=== PATIENT | male | born 1945 | race Caucasian/White ===

== ENCOUNTER 2016-12-15 13:32 | Inpatient (IN) | payer MEDICARE, OTHER ==
[~2016-12-15] VITALS: Ht 185.4 cm; Wt 92.7 kg
[~2016-12-15 13:32] MED LIST: CARB1TAB2 PO; DILT120T4 PO; INSU100I9 SQ; INSU100V8 SQ; METF500T4 PO; NIAC1000 PO; RIVA10TA PO; VALS1TAB8 PO
[2016-12-15] MEDS ORDERED: NITROGLYCERIN SUBLINGUAL 0.4 MG BOTTLE OF 25. SL PRN (14:15)
[2016-12-15 14:29] LABS: BASO % 0 % (0-3); EOS % 0 % (0-3); HEMATOCRIT 43.5 % (39.0-53.0); HEMOGLOBIN 14.5 g/dL (13.0-17.5); LYMPH # 1.3 x10^3/uL (1.0-4.8); LYMPH % 11 % (24-48); MEAN CORPUSCULAR HEMOGLOBIN 29 pg (25-35); MEAN CORPUSCULAR HGB CONC 33 g/dL (31-37); MEAN CORPUSCULAR VOLUME 86 fL (79-100); MONO % 8 % (0-9); NEUT # 9.8 x10^3uL (1.8-7.7); NEUT % 81 % (31-73); PLATELET COUNT 164 x10^3/uL (140-400); RED BLOOD COUNT 5.06 x10^6/uL (4.30-5.70); RED CELL DISTRIBUTION WIDTH 16.8 % (11.5-14.5); WHITE BLOOD COUNT 12.1 x10^3/uL (4.0-11.0)
[2016-12-15] MEDS ORDERED: ASPIRIN 81 MG TAB.CHEW PO ONE (14:30)
[2016-12-15 14:43] LABS: ALBUMIN 3.3 g/dL (3.4-5.0); GFR 73.9; TOTAL BILIRUBIN 0.6 mg/dL (0.2-1.0); TOTAL PROTEIN 6.7 g/dL (6.4-8.2)
--- NOTE | 2016-12-15 14:56 | RAD ---
PORTABLE CHEST 1V Clinical Indication: Chest pain Comparison: Chest radiograph dated 07/13/2014 Findings: Low lung volume. Bibasilar atelectasis. No focal consolidations. Stable pulmonary vasculature. No pleural effusion or pneumothorax. Stable cardiomegaly. Stable tortuous thoracic aorta. No acute osseous abnormality. IMPRESSION: 1. No focal consolidation. 2. Stable cardiomegaly.
--- NOTE | 2016-12-15 15:05 | PHYS DOC ---
General Chief Complaint: CHEST PAIN Stated Complaint: CHEST PAIN Time Seen by MD: 14:10 Source: patient, EMS Exam Limitations: no limitations Problems: History of Present Illness Initial Comments Patient is a 71-year-old male who arrives to the emergency department via EMS with a complaint of chest pain. Patient has history of rate controlled atrial fibrillation is on Coumadin anticoagulation PCP is at [facility] patient does not follow with cardiology, he follows with Dr. Hein for Parkinson's. Patient states that he first noticed his chest discomfort at 10 PM last night. He states that his chest pain is only present when he takes deep breaths or makes certain movements. When asked he points to the left lower anterior sternocostal border and pushes on the area himself reproducing the discomfort. He describes it as sharp and stabbing present only with deep breaths or certain movements/palpation, symptoms lasted only as long as the exacerbating movements. He denies any anterior chest tightness without movement, no dyspnea, no nausea vomiting, no diaphoresis arm or neck discomfort. Patient states that his chest pain with deep breaths and certain movements has not changed, it has not worsened since it was first noted at 10 PM last night. Patient lives alone and states otherwise he is feeling well he denies any recent illness fever chills sweats or body aches. No other focal pain complaints. On arrival patient vital signs: 98.2, 103, 16, 117/58, 95% room air asymptomatic on arrival without pre-arrival treatment. Timing/Duration: intermittent (first noticed 10 PM last night) Severity: moderate Modifying Factors: worse with movement, improves with rest Associated Symptoms: chest pain Allergies: Coded Allergies: No Known Drug Allergies (Unverified , 07/13/14) Past Medical History Medical History: other (atrial fibrillation, diabetes, Parkinson's) Surgical History: noncontributory Social History Smoker: non-smoker Alcohol: none Drugs: none Review of Systems Constitutional: denies chills, denies diaphoresis, denies fever, denies malaise Respiratory: denies cough, denies orthopnea, denies shortness of breath, denies wheezing Cardiovascular: chest pain, denies edema, denies palpitations, denies syncope Gastrointestinal: denies abdominal pain, denies diarrhea, denies nausea, denies vomiting Musculoskeletal: denies back pain, denies joint swelling, denies muscle pain, denies neck pain Psychiatric/Neurological: see HPI, denies headache Hematologic/Lymphatic: denies blood clots, denies easy bleeding, denies easy bruising Physical Exam General Appearance: no apparent distress (mildly disheveled) Eyes: bilateral eye PERRL, bilateral eye EOMI Ear, Nose, Throat: hearing grossly normal, normal ENT inspection (mildly dry membranes), normal pharynx Neck: non-tender, supple Respiratory: normal breath sounds, no respiratory distress, other (chest pain/ chief complaint reproducible with palpation of the left lower sternal costal cartilage, no palpable bony deformity, swelling or ecchymosis or other signs of trauma) Cardiovascular: normal peripheral pulses, regular rate, rhythm (one plus pitting lower extremity edema involving bilateral lower legs no calf tenderness) Gastrointestinal: normal bowel sounds, non tender, soft Back: no CVA tenderness, no vertebral tenderness Extremities: normal range of motion, non-tender (bruising consistent with chronic anticoagulation noted bilateral upper extremities, 1+ pitting lower extremity edema noted), no calf tenderness, pelvis stable 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 Interpreted by Dr. Aleman. PATIENT: JUAN MARTINEZ ACCOUNT: [id number] : 1945 LOCATION: ER AGE: 71 SEX: M EXAM STATUS: PRE ER ORD. PHYSICIAN: TRAMAINE ALEMAN DO REASON: cp PROCEDURE: PORTABLE CHEST 1V PORTABLE CHEST 1V Clinical Indication: Chest pain Comparison: Chest radiograph dated 07/13/2014 Findings: Low lung volume. Bibasilar atelectasis. No focal consolidations. Stable pulmonary vasculature. No pleural effusion or pneumothorax. Stable cardiomegaly. Stable tortuous thoracic aorta. No acute osseous abnormality. IMPRESSION: 1. No focal consolidation. 2. Stable cardiomegaly. DICTATED AND SIGNED BY: ALEX SORIANO MD DATE: 12/15/16 1451 CC: JOJO GUNTER; TRAMAINE ALEMAN DO ~ Pertinent labs: White blood cells 12.1, INR 3.1, potassium 3.0 (20 mEq of oral potassium chloride given), glucose 251, lactic acid 1.8, BNP 292, d-dimer less than 0.19 otherwise unremarkable. At 1511 I discussed these findings with the patient extensively, he stated that he was feeling fine and wanted to go home. I offered him inpatient admission for further evaluation at that time which he refused. Initial chest pain occurred greater than 12 hours prior to arrival and cardiac enzymes negative, initially no emergent indication for inpatient observation for further evaluation. Patient did not have a ride home and ED volume high at the time, patient's RN agreed to discuss with laborer cook house to try to arrange transfer home. Patient's vital signs remained stable and he remained asymptomatic during the wait for a ride back to his residence where he lives alone. When the patient was assisted to an upright position for transfer home he became weak and diaphoretic and blood pressure dropped acutely to systolic in the 80s. The symptoms resolved immediately upon resuming supine position and the patient denied any chest pain dyspnea headache or new focal weakness. A normal saline 1 L IV bolus initiated and further workup indicated at that time lactic acid came back 1.8 urinalysis also indicated however patient unable to give urine specimen at that time. Patient initially refusing catheterization, ED course was prolonged due to the need for further workup after initial discharge status and urinary hesitancy. Patient once again denied any prior urinary symptoms and bladder scan was somewhat inconclusive revealing 300-500 mL of urine. Ultimately his urine came back with greater than 1000 glucose, 15 ketones otherwise no evidence of infection. Patient will require further inpatient evaluation for his hypotension. No evidence of focal infection to suggest sepsis, diabetes and/or Parkinson's associated autonomic dysfunction as well as primary cardiogenic etiologies on the differential will need further workup as an inpatient as he is unstable on his feet and a fall risk living alone. 181: I discussed the patient's history as well as his prolonged ED course and evaluation thoroughly with method consultant hospitalist Dr. Howard. He requests the patient be placed on telemetry as inpatient status and continue initial IV hydration measures to support blood pressure. He requested serial cardiac enzymes and close glucose monitoring as well as echocardiogram and cardiology/ neurology consultations. I discussed these issues with the patient and he understands he is a fall risk and is in agreement with admission. Impressions: Orthostatic hypotension Chest pain appears musculoskeletal Hypovolemic hypokalemia not on diuretics DM2 poorly controlled Rate controlled atrial fibrillation with therapeutic INR History of Parkinson's disease Departure Time of Disposition: 15:11 Disposition: 01 HOME, SELF-CARE Diagnosis: costochondritis, hypokalemia, therapeutic INR, A. Condition: GOOD Patient Instructions: Costochondritis, [id number], Hypokalemia-Brief Additional Instructions: Activity as tolerated. Continue current medications. Aggressive hydration to prevent dehydration. [id number] Tylenol or ibuprofen as needed for discomfort. Prescription: Potassium chloride 10 mEq quantity 3 Follow-up with your doctor on Saturday for recheck. Return to ED with new or changing symptoms. TRAMAINE ALEMAN DO Dec 15, 2016 15:05
[2016-12-15] MEDS ORDERED: POTA10CA PO (15:14)
[2016-12-15] MEDS ORDERED: POTASSIUM CHLORIDE 20 MEQ/15 ML ORAL LIQUID. PO ONE (15:30)
[2016-12-15] MEDS ORDERED: ONDANSETRON ODT 4 MG TAB.RAPDIS ONE (15:38)
[2016-12-15] MEDS ORDERED: IV NORMAL SALINE 1,000ML 1,000 ML IV SCH (16:00)
--- NOTE | 2016-12-15 16:08 | EKG ---
[address] [address] Test Date: 2016-12-15 Test Time: 13:43:48 Pat Name: JUAN MARTINEZ Department: Room: Gender: M Market President: LAKESHA : 1945 Requested By: TRAMAINE ALEMAN Order Number: [id number] Reading MD: Jose Schneider Measurements Intervals [place] Rate: 101 P: [place]: QRS: 10 QRSD: 100 T: 26 QT: 336 QTc: 436 Interpretive Statements IRREGULAR RHYTHM, NO P-WAVE FOUND QRS(T) CONTOUR ABNORMALITY CONSISTENT WITH INFERIOR INFARCT PROBABLY OLD Electronically Signed On 12-16-2016 16:14:54 CDT by Jose Schneider
[2016-12-15] MEDS ORDERED: ONDANSETRON ODT 4 MG TAB.RAPDIS PO ONE (16:15)
[2016-12-15 17:54] LABS: BILIRUBIN,URINE NEG (NEG); CLARITY,URINE CLEAR; COLOR,URINE YELLOW; GLUCOSE,URINE >=1000 mg/dL (NEG)
[2016-12-15 17:55] LABS: BACTERIA,URINE 0 /HPF (0-FEW); NITRITE,URINE NEG (NEG); RBC,URINE 0 /HPF (0-2); SQUAMOUS EPITHELIAL CELL,UR OCC /LPF; UROBILINOGEN,URINE 1 mg/dL (0.2 mg/dL); WBC,URINE OCC /HPF (0-4)
[2016-12-15] MEDS ORDERED: ONDANSETRON PF 4 MG/2 ML VIAL. IV PRN (18:30)
[2016-12-15] MEDS ORDERED: ACETAMINOPHEN 325 MG TABLET PO PRN (18:30)
[2016-12-15 19:55] VITALS: BP 78/52
[2016-12-15] MEDS: IV NORMAL SALINE 1,000ML 1,000 ML IV SCH ×2 (20:00→22:30)
[2016-12-15 20:30] VITALS: BP 81/54
[2016-12-15 21:35] VITALS: BP 92/64
[2016-12-15 23:30] VITALS: BP 89/67
[2016-12-16] VITALS (7 sets, daily range): BP systolic 91–107; BP diastolic 57–72
[2016-12-16] MEDS: IV NORMAL SALINE 1,000ML 1,000 ML IV SCH ×4 (02:30→14:30)
[2016-12-16 06:21] LABS: BASO % 0 % (0-3); EOS % 0 % (0-3); HEMATOCRIT 38.1 % (39.0-53.0); HEMOGLOBIN 12.9 g/dL (13.0-17.5); LYMPH # 1.1 x10^3/uL (1.0-4.8); LYMPH % 12 % (24-48); MEAN CORPUSCULAR HEMOGLOBIN 29 pg (25-35); MEAN CORPUSCULAR HGB CONC 34 g/dL (31-37); MEAN CORPUSCULAR VOLUME 86 fL (79-100); MONO % 10 % (0-9); NEUT # 7.6 x10^3uL (1.8-7.7); NEUT % 78 % (31-73); PLATELET COUNT 124 x10^3/uL (140-400); RED BLOOD COUNT 4.44 x10^6/uL (4.30-5.70); RED CELL DISTRIBUTION WIDTH 16.7 % (11.5-14.5); WHITE BLOOD COUNT 9.8 x10^3/uL (4.0-11.0)
[2016-12-16 06:33] LABS: CALCIUM 8.1 mg/dL (8.5-10.1); CREATININE 0.7 mg/dL (0.7-1.3); GFR 111.5; POTASSIUM 3.2 mmol/L (3.5-5.1)
[2016-12-16] MEDS ORDERED: DILT120C71 PO (07:59)
[2016-12-16] MEDS ORDERED: CARB1TAB22 PO (07:59)
[2016-12-16] MEDS ORDERED: CANA300T PO (07:59)
[2016-12-16] MEDS ORDERED: OMEP40CA5 PO (07:59)
[2016-12-16] MEDS ORDERED: WARF5TAB7 PO (07:59)
[2016-12-16] MEDS ORDERED: ATOR20TA58 PO (07:59)
[2016-12-16] MEDS ORDERED: VALS80TA22 PO (07:59)
[2016-12-16] MEDS ORDERED: ROPI1TAB2 PO (07:59)
[2016-12-16] MEDS ORDERED: WARF1TAB7 PO (07:59)
[2016-12-16] MEDS ORDERED: POTASSIUM CHLORIDE 20 MEQ TABLET.ER. PO ONE (15:15)
--- NOTE | 2016-12-16 15:59 | HP ---
ADMIT DATE: 12/15/2016 HISTORY OF PRESENT ILLNESS: This is a 71-year-old male patient who came to the Emergency Room with a complaint of chest pain. He stated that he first noticed his chest discomfort around 10 p.m. tonight, before he stated that his chest pain is only present when he takes deep breath and make certain movement. When I asked, he pointed to the left lower anterior costal border and pushes on the area himself reproducing the discomfort, described it as a sharp, stabbing, present only with deep breath or certain movement. The symptoms lasted only as long as he was exacerbating movements. He denies any anterior chest tightness, dyspnea, nausea, vomiting, diaphoresis, no neck or arm discomfort. He stated that his chest pain with deep breath and certain movement has not changed, it has not worsened since it started at 10 o'clock last night. The patient lives alone and states; otherwise, he is feeling well and denies any other recent illnesses, fever, chills, sweats, body aches and no focal pain complaints. He was seen in the Emergency Room, was found also to be hypotensive with marked postural hypotension and was admitted for rehydration and to consult the Cardiology team as he continued to have AFib with rapid ventricular response. PAST MEDICAL HISTORY: Significant for Parkinson disease. He is known to have hypertension, hyperlipidemia, type 2 diabetes, pulmonary embolism. He is on Coumadin and his INR was within therapeutic range on admission. He has also fibrillation with rapid ventricular response. PAST SURGICAL HISTORY: Significant for back surgery, cholecystectomy, and eye surgery for squint. ALLERGIES: He has no known drug allergies. MEDICATIONS: He is currently on the following medications: He is on atorvastatin 20 mg at bedtime, Invokana 300 mg p.o. daily, carbidopa/levodopa 25/100 one tablet 3 times a day, diltiazem 120 mg extended release once a day. He is on Lantus insulin as well as Humalog insulin, niacin 1000 mg once a day, omeprazole 40 mg once a day, potassium chloride 10 mEq once a day, rivaroxaban for Xarelto 20 mg once a day, Requip 1 mg at bedtime, valsartan 80 mg once a day, and Coumadin 6 mg once a day. FAMILY HISTORY: He is adopted and does not know his biological parents. He has one brother, who lives in [place]; one sister in [place]. The other sister in [place] and the third sister in [place]. SOCIAL HISTORY: He is , has 1 son who does not keep in touch. He never smoked, does not drink alcohol or use any recreational drugs. 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 REVIEW OF SYSTEMS: The patient denied any blurring of vision, cataract, glaucoma or macular degeneration. Denied any earache, tinnitus or sensorineural deafness. Denied any nosebleeds, stuffy nose or postnasal drip. Denied any sore throat, sore tongue, toothache, hoarseness of voice or difficulty swallowing. Denied any nausea, vomiting, diarrhea or constipation. Denied any hematemesis, melena or hematochezia. Denied any dysuria, frequency, but did complain of nocturia, did complain of chest pain that brought him to the Emergency Room. Denied any shortness of breath, orthopnea, or paroxysmal nocturnal dyspnea. Denied any cough, phlegm or hemoptysis. Denied any chills, rigors or fever. PHYSICAL EXAMINATION: GENERAL: On arrival to the Emergency Room, he was somewhat pale, but no jaundice, cyanosis, or thyromegaly. No jugular venous distention. No lower limb edema. VITAL SIGNS: His heart rate was 103, blood pressure was 97/60, temperature was 98.2, respiratory rate was 16, and oxygen saturation was 95% on room air. HEAD, EYES, EARS, NOSE, AND THROAT: Showed normocephalic, atraumatic. NECK: Supple. HEART: Showed normal first and second heart sounds with no gallop, rub or murmur. CHEST: Clear to auscultation. No crepitation or rhonchi. ABDOMEN: Distended, soft, nontender. NEUROLOGIC: He was awake, alert, responding appropriately. All his cranial nerves are intact. EXTREMITIES: He moves extremities without difficulty, but according to the ER physician, he was markedly hypotensive when they planned to discharge him home. He has marked drop in his systolic pressure and was unsteady. LABORATORY DATA: While in the Emergency Room, he has had lab work done, which showed a white cell count of 12,100, hemoglobin 14.5, hematocrit 38.5, MCV 86 and platelet count 164,000. His prothrombin time was 31.3, INR of 3.1, aPTT was 39. D-dimer was 0.19. His chemistry showed a serum sodium 136, potassium 3, chloride 97, bicarbonate 26, anion gap of 13, BUN 22, creatinine 1, estimated GFR was 74 mL per minute, his glucose was 251, calcium was 9. Total bilirubin, AST, ALT, alkaline phosphatase were normal. His first set of cardiac enzymes showed troponin to be less than 0.017. BNP was 292. Total protein was 6.7, albumin 3.3. His urinalysis was essentially unremarkable. IMAGING: His chest x-ray showed the low lung volumes, bibasilar atelectasis, no focal consolidation, stable pulmonary vasculature, no pleural effusion or pneumothorax, stable cardiomegaly, stable tortuous thoracic aorta, no acute osseous abnormality. ASSESSMENT AND PLAN: The patient was admitted for rehydration, to do 2 more sets of cardiac enzyme, consult the Cardiology team, to replenish his potassium. CHANG FLOWER MD DR: DAIJA/re JOB#: [id number] / [id number]
--- NOTE | 2016-12-16 17:03 | CONS ---
DATE OF CONSULTATION: 12/15/2016 REASON FOR CONSULTATION: Chest pain. HISTORY OF PRESENT ILLNESS: The patient is a pleasant 71-year-old man who has mild cognitive impairment in the setting of possible Parkinson's disease, who came into the hospital for what appears to be some atypical chest discomfort around the epigastric region. He currently denies any chest pain, but review of the chart shows that he has had some chest pain dating back to 2014 at which time he was diagnosed with a pulmonary embolism. He has been maintained on anticoagulation and upon arrival to the ER, he was noted to have a therapeutic INR level. 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 Denies any syncope or palpitations. Upon arrival in the ER, he was also noted to have an elevated heart rate with atrial fibrillation with a rapid ventricular response by EKG. In this setting, his home medications have been restarted and he is resting comfortably in bed at this time. PAST MEDICAL HISTORY: 1. Pulmonary embolus. 2. Permanent atrial fibrillation. 3. Hypertension. 4. Dyslipidemia. SOCIAL HISTORY: The patient lives by himself as noted above. Denies any alcohol, tobacco, or illicit drug use. ALLERGIES: No known drug allergies. REVIEW OF SYSTEMS: Negative for 10 out of 14 systems reviewed, unless otherwise mentioned above in HPI. PHYSICAL EXAMINATION: VITAL SIGNS: Afebrile, 105, 23, 107/57, 95% on room air. GENERAL: He is quite pleasant and alert and oriented to self and place and time. HEAD AND NECK: Unremarkable. CARDIAC: Irregularly irregular without any obvious murmurs, rubs, or gallops. LUNGS: Fairly clear to auscultation bilaterally. ABDOMEN: Soft, nontender, without any hepatosplenomegaly. Positive bowel sounds. EXTREMITIES: No clubbing, cyanosis, or edema. 2+ radial and 1+ dorsalis pedis pulses. NEUROLOGIC: No focal deficits. He has appropriate mood and affect. Mini-Mental Status exam was not performed. DIAGNOSTIC STUDIES: Hemoglobin 12.9, platelets 124, creatinine 0.7, troponin negative x 2, INR 3.1. Urinalysis reveals glucosuria, but no obvious infectious etiology. Chest x-ray is unremarkable. EKG demonstrates atrial fibrillation with rapid ventricular response and nonspecific ST-T wave changes. IMPRESSION: 1. Noncardiac chest pain based on physical examination and diagnostic testing thus far. 2. Permanent atrial fibrillation. 3. Hypertension. RECOMMENDATIONS: At this present time, we will stop his losartan in light of the fact that he has had some low blood pressures. Confirm that he is actually taking his diltiazem at home. In an effort to achieve better rate control without affecting his blood pressure, we will initiate him on metoprolol 25 mg p.o. b.i.d. Continue with his Coumadin and we will follow up on an outpatient basis as his primary care physician is next to our office. Thank you for this consultation. EMELIA KHAN MD DR: KATELYNN/re JOB#: [id number] / [id number]
[2016-12-16] MEDS: metFORMIN 500 MG TABLET PO SCH (17:19)
[2016-12-16] MEDS: CARBIDOPA/LEVODOPA 25/100MG TABLET PO SCH (20:53)
[2016-12-16] MEDS: METOPROLOL TART IMMED RELEASE 25 MG TABLET PO SCH (20:54)
[2016-12-16] MEDS ORDERED: rOPINIRole 1 MG TABLET. PO SCH (21:00)
[2016-12-16] MEDS ORDERED: NIACIN ER 500 MG TABLET.ER PO SCH (21:00)
[2016-12-16] MEDS ORDERED: ATORVASTATIN CALCIUM 20 MG TABLET PO SCH (21:00)
[2016-12-17 00:47] VITALS: BP 92/69
[2016-12-17 01:32] VITALS: BP 96/65
[2016-12-17 04:00] VITALS: BP 96/70
[2016-12-17 06:45] LABS: HEMATOCRIT 38.7 % (39.0-53.0); HEMOGLOBIN 12.6 g/dL (13.0-17.5); RED BLOOD COUNT 4.35 x10^6/uL (4.30-5.70); RED CELL DISTRIBUTION WIDTH 17.5 % (11.5-14.5); WHITE BLOOD COUNT 8.3 x10^3/uL (4.0-11.0)
[2016-12-17 06:55] LABS: CALCIUM 8.5 mg/dL (8.5-10.1); CREATININE 0.6 mg/dL (0.7-1.3); GFR 133.2; POTASSIUM 3.8 mmol/L (3.5-5.1)
[2016-12-17] MEDS ORDERED: PANTOPRAZOLE 40 MG TABLET. PO SCH (07:30)
[2016-12-17] MEDS ORDERED: POTASSIUM CHLORIDE 20 MEQ TABLET.ER. PO SCH (08:00)
[2016-12-17] MEDS: METOPROLOL TART IMMED RELEASE 25 MG TABLET PO SCH (08:17)
[2016-12-17] MEDS: metFORMIN 500 MG TABLET PO SCH (08:19)
[2016-12-17] MEDS: CARBIDOPA/LEVODOPA 25/100MG TABLET PO SCH (08:19)
[2016-12-17] MEDS ORDERED: WARFARIN 1 MG TABLET. PO SCH (09:00)
[2016-12-17] MEDS ORDERED: LOSARTAN 25 MG TABLET. PO SCH (09:00)
[2016-12-17 09:38] VITALS: BP 97/70
[2016-12-17 11:05] VITALS: BP 105/69
--- NOTE | 2016-12-17 12:47 | PN ---
DATE: 12/16/2016 SUBJECTIVE: The patient is resting, slightly propped up in bed, in no apparent respiratory distress. He is awake, alert, continued to have some chest pain mostly when he takes a deep breath, but it is orthostatic and there is no postural . He received large amount of fluid. His lab work showed that he has hypokalemia that was replenished, unfortunately he does not know his actual doses of his medication. PHYSICAL EXAMINATION: GENERAL: When I examined him; however, he looked well and was clearly in no apparent respiratory distress, pale, but no jaundice, cyanosis, or thyromegaly. No jugular venous distention. No limb edema. VITAL SIGNS: His heart rate was 101, blood pressure was 105/60, temperature was 97.2, respiratory rate was 14, and oxygen saturation was 92%. The rest of clinical examination is unremarkable. LABORATORY WORK: This morning showed a serum sodium 138, potassium 3.2, chloride 104, bicarbonate 23, anion gap of 11, BUN 21, creatinine 0.7, estimated GFR was 111 mL per minute. His glucose 131, calcium was 8.1. Second set of cardiac enzyme was less than 0.07. His white cell count was 9800, hemoglobin 13, hematocrit 38, MCV 86 and platelet count 224,000. His prothrombin time was 31.3, INR 3.1, aPTT was 39. D-dimer was normal at 0.19. ASSESSMENT AND PLAN: In summary, this is a 71-year-old male patient who was admitted with basically orthostatic hypotension, chest pain appears musculoskeletal, hypovolemic, hypokalemia, type 2 diabetes that seems to be poorly controlled, his atrial fibrillation also seems to be less than optimally controlled; however, his INR is within therapeutic range. He has history of Parkinson disease, carpal tunnel syndrome, hyperlipidemia, hypertension, has also type 2 diabetes and pulmonary embolism. I will repeat all his lab works tomorrow. We did consult the accredited farm manager to see him to optimize his heart rate and perhaps arrange for a stress test. CHANG FLOWER MD DR: DAIJA/re JOB#: [id number] / [id number]
[2016-12-17] MEDS ORDERED: PRIM50TA PO (12:58)
[2016-12-17] MEDS ORDERED: WARF3TAB7 PO (12:58)
[2016-12-17] MEDS ORDERED: HYDR50TA6 PO (12:58)
[2016-12-17] MEDS ORDERED: CARBIDOPA/LEVODOPA 25/100MG TABLET PO SCH (13:00)
[2016-12-17] MEDS ORDERED: PRIMIDONE 50 MG TABLET PO SCH (13:30)
--- NOTE | 2016-12-17 13:58 | CARD ---
APPROVED REPORT EXAM: Two-dimensional and M-mode echocardiogram with Doppler and color Doppler. Other Information Quality : Fair Rhythm : Atrial FibrillationTechnically limited study due to body habitus. INDICATION Chest Pain Hypotension 2D DIMENSIONS RVDd3.3 (2.9-3.5cm)Left Atrium(2D)4.5 (1.6-4.0cm) IVSd1.4 (0.7-1.1cm)Aortic Root(2D)3.2 (2.0-3.7cm) LVDd5.1 (3.9-5.9cm)LVOT Diameter2.1 (1.8-2.4cm) PWd1.4 (0.7-1.1cm)LVDs4.5 (2.5-4.0cm) FS (%) 11.0 %SV29.0 ml LVEF(%)23.9 (>50%) Aortic Valve AoV Peak Jax.102.5cm/sAoV VTI16.8cm AO Peak GR.4.2mmHgLVOT Peak Jax.74.7cm/s LVOT VTI 13.44cmAO Mean GR.3mmHg MILLICENT (VMAX)2.22aw3TQX (VTI)2.88cm2 Mitral Valve MV E Qfwhmwxk83.4cm/sMV E Peak Gr.3mmHg MV DECEL [id number] A Velocity0.4cm/s MV E Mean Gr.1mmHgE/A Zaoad767.5 Tricuspid Valve TR P. Vtozeehy420ix/sRAP [id number] TR Peak Gr.09reXmJJEW41iqCn LEFT VENTRICLE The left ventricle is normal size. There is mild concentric left ventricular hypertrophy. The systoli c function is mildly impaired. EF 50% - Likely due to afib. There is mild global hypokinesis of the l eft ventricle. Tissue Doppler imaging reveals moderate left ventricular diastolic dysfunction. No lef t ventricle thrombus noted on this study. RIGHT VENTRICLE The right ventricle is normal size. The right ventricular systolic function is normal. ATRIA The left atrium is mildly dilated. The right atrium size is normal. The interatrial septum is intact with no evidence for an atrial septal defect or patent foramen ovale as noted on 2-D or Doppler imagi ng. AORTIC VALVE The aortic valve is not well visualized. Doppler and Color Flow revealed trace aortic regurgitation. There is no significant aortic valvular stenosis. MITRAL VALVE The mitral valve is normal in structure and function. There is no mitral valve stenosis. Doppler and Color Flow revealed no mitral valve regurgitation noted. TRICUSPID VALVE The tricuspid valve is not well visualized. Doppler and Color Flow revealed mild tricuspid regurgitat ion.The PA pressure was estimated at 43 mmHg. There is no tricuspid valve stenosis. PULMONIC VALVE The pulmonic valve is not well visualized. Doppler and Color Flow revealed no pulmonic valvular regur gitation. There is no pulmonic valvular stenosis. GREAT VESSELS The aortic root is normal in size. The ascending aorta is normal in size. Pulmonary veins not recorde d. The IVC is dilated and collapses <50% with inspiration. PERICARDIAL EFFUSION There is no evidence of significant pericardial effusion. Critical Notification Critical Value: No <Conclusion> The systolic function is mildly impaired. EF 50% - Likely due to afib. There is mild global hypokinesis of the left ventricle. Doppler and Color Flow revealed mild tricuspid regurgitation.The PA pressure was estimated at 43 mmHg .
[2016-12-17] MEDS ORDERED: rOPINIRole 1 MG TABLET. PO SCH (14:00)
[2016-12-17] MEDS ORDERED: METO25TA4 PO (14:21)
[2016-12-17] MEDS ORDERED: WARFARIN 4 MG TABLET. PO ONE (16:00)
--- NOTE | 2016-12-17 22:29 | DS ---
DATE OF DISCHARGE: 12/17/2016 DISCHARGE DIAGNOSES: 1. Chest pain, myocardial infarction ruled out, probable costochondritis. 2. Hypovolemia, corrected. 3. Hypokalemia, corrected. 4. Type 2 diabetes. 5. Atrial fibrillation. 6. Long-term use of anticoagulants. 7. Parkinson disease. 8. History of pulmonary embolism. 9. Elevated pulmonary artery pressure of 43 - does not have diagnosis of pulmonary hypertension. HOSPITAL COURSE: This is a 71-year-old gentleman with Parkinson disease, who presented to the Emergency Room complaining of chest pain, subsequent workup was negative, but he was in AFib with RVR and also hypotensive. He was treated for that and any electrolyte abnormalities, etc. His echocardiogram was done showing concentric left ventricular hypertrophy with ejection fraction of 50% and an elevated PA pressure of 43. He was started on metoprolol and continued on the Cardizem, and his ARB was discontinued as well as HCTZ. PHYSICAL EXAMINATION: VITAL SIGNS: On the day of discharge, his blood pressure was 105/69, pulse 101, respirations 18, pulse ox 96% on room air. GENERAL: He is alert, pleasant, and cooperative. HEENT: Tongue was moist. NECK: Supple. LUNGS: Clear. CARDIOVASCULAR: Irregular rhythm and rate. ABDOMEN: Soft, nontender. EXTREMITIES: Without edema. PLAN: Discharged home. Discharge instructions given. Followup with his primary care physician for followup of the elevated pulmonary artery pressure. Should probably see a crate builder. Medication instructions were also given. RUIZ CANDELARIA DO DR: ABUNDIO/re JOB#: [id number] / [id number]
[2016-12-19] MEDS ORDERED: WARFARIN 3 MG TABLET. PO SCH (09:00)
== END 2016-12-17 15:40 | disposition home health service (06) | DRG 206 ==
LOC: ER 13:32 → ICU 18:18 → UNDOADMIN 18:49 → ICU 18:49 → ER 19:37
PROVIDERS: ADMIT Internal Medicine; ATTEND Internal Medicine
DX: M94.0 Chondrocostal junction syndrome [Tietze] (principal); E87.8 Other disorders of electrolyte and fluid balance, not elsewhere classified; G20 Parkinson's disease; I48.2 Chronic atrial fibrillation; E11.9 Type 2 diabetes mellitus without complications; E86.1 Hypovolemia; E78.5 Hyperlipidemia, unspecified; E87.6 Hypokalemia; I95.1 Orthostatic hypotension; G31.84 Mild cognitive impairment of uncertain or unknown etiology; I11.9 Hypertensive heart disease without heart failure; G56.00 Carpal tunnel syndrome, unspecified upper limb; Z79.01 Long term (current) use of anticoagulants; Z86.711 Personal history of pulmonary embolism; Z90.49 Acquired absence of other specified parts of digestive tract
CPT/HCPCS: 36415; 71010; 80048; 80053; 81001; 82550; 82947; 83605; 83690; 83880; 84443; 84484; 85025; 85027; 85379; 85610; 85730; 93005; 93306; 96360; J2405; Q0162; 99285-25; J7030

== ENCOUNTER 2016-12-29 21:50 | Inpatient (IN) | payer MEDICARE, OTHER ==
[~2016-12-29] VITALS: Ht 185.4 cm; Wt 104.9 kg
[~2016-12-29 21:50] MED LIST changes: +ATOR20TA58 PO; +CANA300T PO; +CARB1TAB22 PO; +DILT120C71 PO; +HYDR50TA6 PO; +METO25TA4 PO; +OMEP40CA5 PO; +POTA10CA PO; +PRIM50TA PO; +ROPI1TAB2 PO; +VALS80TA22 PO; +WARF1TAB7 PO; +WARF3TAB7 PO; +WARF5TAB7 PO
[2016-12-29] MEDS ORDERED: 0.9 % SODIUM CHLORIDE 10 ML DISP.SYRIN. IV PRN (22:15)
--- NOTE | 2016-12-29 22:27 | PHYS DOC ---
Past History Past Medical History: A-Fib, Diabetes, Other Past Surgical History: Cholecystectomy, Other Alcohol Use: None Drug Use: None Adult General Chief Complaint Chief Complaint: MECHANICAL FALL HPI HPI Patient is a pleasant 71-year-old male who lives by himself with a history of high blood pressure, high cholesterol, insulin-dependent diabetes, chronic atrial fibrillation on Coumadin who presents tonight after mechanical fall for generalized weakness. Patient was recently seen here and admitted to the hospital for A. fib and RVR and generalized weakness. Tonight while attempted to stand on an overhead light patient fell hitting his head on the ground creating rug fernando on each of his knees and elbows bilaterally. Patient denies any headache or focal neurologic weakness but he is generally weak with a resting tremor. After the fell he had urinary incontinence because he said he had used the restroom. He denies any seizure activity, loss of consciousness. He also further denies any change in voice, change in ability to see or speaking. Patient normally wears a life light emergency bracelet but he was not wearing at this time he laid on the floor for about 1 hour before he was able activate his life light beacon. 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 he has a good appetite and says that his sugars have been well controlled. He denies any ab pain, chest pain, joint pain other than where he injuried his arms and elbows on the floor. My syncope differential includes but not limited to: Neurally mediated vasovagal syncope, situational syncope, cardiac sinus syncope , orthostatic hypertension, medications, psychiatric interventions, neurologic syncope, cardiogenic syncopal B, to include organic heart disease congestive heart failure, cardiac dysrhythmia, seizure disorder, stroke or transient ischemic attack, bradycardia dysrhythmias, tachycardia dysrhythmias, PT, V. fib V. fib, cardiac abnormalities like first degree secondary third-degree AV blocks , prolonged QT, hypertrophic Kevin myopathy, severe pulmonic stenosis, pulmonary arterial hypertension, atrial myxomas, aortic stenosis, valvular failure, alcohol consumption, adrenal insufficiency, drug effects from things like antidepressants, antihypertensive agents like beta blockers, vasodilators including calcium channel blockers and nitrates, autonomic insufficiency. Review of Systems Review of Systems Constitutional: Denies fever or chills [] Eyes: Denies change in visual acuity, redness, or eye pain [] HENT: Denies nasal congestion or sore throat [] Respiratory: Denies cough or shortness of breath [] Cardiovascular: No additional information not addressed in HPI [] GI: Denies abdominal pain, nausea, vomiting, bloody stools or diarrhea [] : Denies dysuria or hematuria [] Musculoskeletal: he does complain of a bilateral knee and elbow pain no back pain or bottom pain Integument: Denies rash or skin lesions [] Neurologic: Denies headache, focal weakness or sensory changes does complain of generalized weakness with tremors and shakiness Endocrine: Denies polyuria or polydipsia [] All other systems were reviewed and found to be within normal limits, except as documented in this note. Current Medications Current Medications Current Medications Medications (Trade) Dose Ordered Sig/Karen Start Time Stop Time Status Last Admin Dose Admin Diltiazem HCl (Cardizem) 20 mg 1X ONCE 12/29/16 22:15 12/29/16 22:16 UNV Sodium Chloride (Normal Saline Flush) 10 ml QSHIFT PRN 12/29/16 22:15 UNV Allergies Allergies Allergies Coded Allergies Type Severity Reaction Last Updated Verified No Known Drug Allergies 07/13/14 No Physical Exam Physical Exam Vital signs noted on the chart patient noted to be tachycardic and end-stage fibrillation mild hypertension not hypoxic not tachypnea Constitutional: he is somewhat disheveled but he is well-nourished. He seems somewhat dehydrated and sustained a large contusion to the left side of his quaker. HENT: Normocephalic, bilateral external ears normal, oropharynx dry with poor dentition no oral exudates, nose normal. [] Eyes: PERRLA, EOMI, conjunctiva normal, no discharge. Otic cataract surgery bilaterally Neck: Normal range of motion, no tenderness, supple, no stridor. [] Cardiovascular: Irregular irregular rhythm that is tachycardic no gallops or rubs noted patient has a significant 26 systolic ejection murmur Lungs & Thorax: Bilateral breath sounds clear to auscultation [] Abdomen: Bowel sounds normal, soft, no tenderness, no masses, no pulsatile masses. [] Skin: Warm, dry, skin is pale and diaphoretic with bruises in various states of healing on his upper and lower legs and arms or significant abrasions to the external surfaces of the elbows bilaterally in the knees the patellas bilaterally with no bony tenderness palpation or deformity Back: No tenderness, no CVA tenderness. [] Extremities: No tenderness, no cyanosis, no clubbing, ROM intact, no edema. [] Neurologic: Alert and oriented X 3, normal motor function, normal sensory function, no focal deficits noted. Has a significant resting tremor[] Psychologic: Affect normal, judgement normal, mood normal. [] Current Patient Data Lab Results Laboratory Tests Test 12/29/16 22:07 White Blood Count 12.8 x10^3/uL (4.0-11.0) H Red Blood Count 4.39 x10^6/uL (4.30-5.70) Hemoglobin 12.4 g/dL (13.0-17.5) L Hematocrit 38.3 % (39.0-53.0) L Mean Corpuscular Volume 87 fL (79-100) Mean Corpuscular Hemoglobin 28 pg (25-35) Mean Corpuscular Hemoglobin Concent 33 g/dL (31-37) Red Cell Distribution Width 17.4 % (11.5-14.5) H Platelet Count 378 x10^3/uL (140-400) # Neutrophils (%) (Auto) 82 % (31-73) H Lymphocytes (%) (Auto) 7 % (24-48) L Monocytes (%) (Auto) 11 % (0-9) H Eosinophils (%) (Auto) 0 % (0-3) Basophils (%) (Auto) 0 % (0-3) Neutrophils # (Auto) 10.5 x10^3uL (1.8-7.7) H Lymphocytes # (Auto) 0.9 x10^3/uL (1.0-4.8) L Monocytes # (Auto) 1.4 x10^3/uL (0.0-1.1) H Eosinophils # (Auto) 0.0 x10^3/uL (0.0-0.7) Basophils # (Auto) 0.0 x10^3/uL (0.0-0.2) Prothrombin Time 83.9 SEC (9.4-11.4) H Prothrombin Time INR 8.5 (0.9-1.1) *H PTT 53 SEC (23-33) H Sodium Level 140 mmol/L (136-145) Potassium Level 3.6 mmol/L (3.5-5.1) Chloride Level 103 mmol/L (98-107) Carbon Dioxide Level 21 mmol/L (21-32) Anion Gap 16 (6-14) H Blood Urea Nitrogen 30 mg/dL (8-26) H Creatinine 1.4 mg/dL (0.7-1.3) H Estimated GFR (Cockcroft-Gault) 50.1 Glucose Level 155 mg/dL (70-99) H Calcium Level 8.7 mg/dL (8.5-10.1) Magnesium Level 2.1 mg/dL (1.8-2.4) Total Bilirubin 0.6 mg/dL (0.2-1.0) Direct Bilirubin 0.2 mg/dL (0.0-0.2) Aspartate Amino Transferase (AST) 26 U/L (15-37) Alanine Aminotransferase (ALT) 10 U/L (16-63) L Alkaline Phosphatase 63 U/L (46-116) Creatine Kinase 46 U/L (39-308) Creatine Kinase MB (Mass) 0.6 ng/mL (0.0-3.6) Creatine Kinase MB Relative Index 1.3 % (0-4) Troponin I Quantitative < 0.017 ng/mL (0-0.055) BT-Pjn-U-Type Natriuretic Peptide 651 pg/mL (0-124) H Total Protein 6.8 g/dL (6.4-8.2) Albumin 2.7 g/dL (3.4-5.0) L EKG EKG EKG timed 22:31 p.m. 12/29/2016 read by me demonstrates a heart rate of 128 there is no discernible P waves a very irregular heart rate Atrial fibrillation with a rapid incomplete RBBB prime in V2 there is a Q-wave noted in lead 3 likely an old inferior infarct with QRS width is 92 which is normal QTC which is 497 which is mildly elevated. This is an abnormal EKG[] Radiology/Procedures Radiology/Procedures [] [address] [address] IMAGING REPORT Signed PATIENT: JUAN MARTINEZ ACCOUNT: [id number] : 1945 LOCATION: ER AGE: 71 SEX: M EXAM STATUS: REG ER ORD. PHYSICIAN: TREVOR FRIEND MD REASON: head injury on Coumadin PROCEDURE: CT HEAD WO CONTRAST EXAM: CT HEAD WITHOUT CONTRAST. HISTORY: Fall, head/facial trauma. TECHNIQUE: Computed tomography of the head was performed without intravenous contrast. COMPARISON: July 13, 2014. FINDINGS: There is no intracranial hemorrhage. Hypoattenuation within the white matter indicates moderate to severe chronic microangiopathic change. Prominence of the lateral ventricles and hemispheric sulci indicates moderate atrophy. The cerebellum appears more severely affected. The visualized paranasal sinuses appear clear. The orbits are unremarkable. The temporal bones are unremarkable. The calvarium reveals no suspicious lesions. There are atherosclerotic calcifications of the internal carotid arteries. IMPRESSION: 1. No acute intracranial findings. 2. Moderate atrophy and moderate to severe chronic microangiopathic white matter change. *One or more of the following individualized dose reduction techniques were utilized for this examination: 1. Automated exposure control. 2. Adjustment of the mA and/or kV according to patient size. 3. Use of iterative reconstruction technique. Electronically signed by: Matilde Lafleur MD (12/29/2016 10:46 PM) [facility] DICTATED AND SIGNED BY: ANGELICA LAFLEUR MD DATE: 12/29/168 CC: TREVOR FRIEND MD; JOJO GUNTER ~ Course & Med Decision Making Course & Med Decision Making Pertinent Labs and Imaging studies reviewed. (See chart for details) []Patient presents with near syncopal like episode at home while on chronic medications to treat his atrial fibrillation including Coumadin sustaining a head injury. My syncope differential includes but not limited to: Neurally mediated vasovagal syncope, situational syncope, cardiac sinus syncope , orthostatic hypertension, medications, psychiatric interventions, neurologic syncope, cardiogenic syncopal B, to include organic heart disease congestive heart failure, cardiac dysrhythmia, seizure disorder, stroke or transient ischemic attack, bradycardia dysrhythmias, tachycardia dysrhythmias, PT, V. fib V. fib, cardiac abnormalities like first degree secondary third-degree AV blocks , prolonged QT, hypertrophic Kevin myopathy, severe pulmonic stenosis, pulmonary arterial hypertension, atrial myxomas, aortic stenosis, valvular failure, alcohol consumption, adrenal insufficiency, drug effects from things like antidepressants, antihypertensive agents like beta blockers, vasodilators including calcium channel blockers and nitrates, autonomic insufficiency. Was considered upon this patient's arrival patient noted to be tachycardic A. fib and RVR will be given some beta blockers treat this rate see that improves his strength. In the interim he will have a CT of the head done to rule out intracranial bleed or hemorrhage Coumadin usage. patient at 11:05 pm is [address] quietly. CT head reviewed by me and read by radiology does not demonstrate intercranial hemorrhage or injury despite being on Coumadin. Patient's heart rate is now 95 it is still in A. fib but rate control. The patient has increased and we'll treat the left lower lung which might represent a new informing pneumonia which explains his generalized weakness and shakiness when he stands. She had blood cultures and lactic acid drawn patient was given appropriate antibiotics rate required pneumonia to include Rocephin and azithromycin Time is now 11:14 PM abnormal lab results were called to the facility by computer aided design technician INR was 8.4 PT elevated to greater than 80. Patient's lactic acid is 6.0 I'm beginning to be more more that his weakness is associate with a localized infection the left lung patient is started antibiotics ordered a third liter of fluids and ordered as well to treat him for sepsis. Given his tachycardia and weakness dehydration patiently admitted to the ICU to keep monitoring his blood pressures heart rate and his mental status. [place] Technician note: Dr. Houston [place] Technician called at of the service called service at 11:20 PM Consult called back at 11:24 pm Discussed the case I presented and they agreed with admission. Time of acceptance 11:24 Patient is hematologic stable at this time patient is resting quietly antibiotics to be confused patient is a middle the second liter. Because his height and weight we will use ideal body weight for this patient and provide him at least 3 L of normal saline Continue to watch his mental status with neuro exams every 4 hours to ensure that he is not having a late intercranial bleed. Critical Care: The high probability of sudden, clinically significant deterioration in the patient's condition required the highest level of my preparedness to intervene urgently. The services I provided to this patient were to treat and/or prevent clinically significant deterioration. Services included the following: chart data review, reviewing nursing notes and/or old charts, documentation time, healthcare economics consultant collaboration regarding findings and treatment options, medication orders and management, direct patient care, vital sign assessments and ordering, interpreting and reviewing diagnostic studies/ lab tests. Aggregate critical care time includes only time during which I was engaged in work directly related to the patient's care, as described above, whether at the bedside or elsewhere in the Emergency Department. It did not include time spent performing other reported procedures or the services of nurses or physician assistants. Critical Care Time: 35 Dragon Disclaimer Dragon Disclaimer This electronic medical record was generated, in whole or in part, using a voice recognition dictation system. Departure Departure: Impression: Primary Impression: Pneumonia Additional Impressions: Closed head injury Elevated INR Weakness Atrial fibrillation with RVR Disposition: 09 ADMITTED INPATIENT Admitting Physician: Lucia Houston Condition: GUARDED Referrals: JOJO GUNTER (PCP) Problem Qualifiers TREVOR FRIEND MD Dec 29, 2016 22:27
[2016-12-29] MEDS ORDERED: dilTIAZem 25 MG/5 ML VIAL IVP ONE (22:30)
[2016-12-29] MEDS ORDERED: IV NORMAL SALINE 1,000ML 1,000 ML IV SCH (22:30)
[2016-12-29 22:33] LABS: BASO % 0 % (0-3); EOS % 0 % (0-3); HEMATOCRIT 38.3 % (39.0-53.0); HEMOGLOBIN 12.4 g/dL (13.0-17.5); LYMPH # 0.9 x10^3/uL (1.0-4.8); LYMPH % 7 % (24-48); MEAN CORPUSCULAR HEMOGLOBIN 28 pg (25-35); MEAN CORPUSCULAR HGB CONC 33 g/dL (31-37); MEAN CORPUSCULAR VOLUME 87 fL (79-100); MONO # 1.4 x10^3/uL (0.0-1.1); MONO % 11 % (0-9); NEUT # 10.5 x10^3uL (1.8-7.7); NEUT % 82 % (31-73); PLATELET COUNT 378 x10^3/uL (140-400); RED BLOOD COUNT 4.39 x10^6/uL (4.30-5.70); RED CELL DISTRIBUTION WIDTH 17.4 % (11.5-14.5); WHITE BLOOD COUNT 12.8 x10^3/uL (4.0-11.0)
--- NOTE | 2016-12-29 22:49 | RAD ---
EXAM: CT HEAD WITHOUT CONTRAST. HISTORY: Fall, head/facial trauma. TECHNIQUE: Computed tomography of the head was performed without intravenous contrast. COMPARISON: July 13, 2014. FINDINGS: There is no intracranial hemorrhage. Hypoattenuation within the white matter indicates moderate to severe chronic microangiopathic change. Prominence of the lateral ventricles and hemispheric sulci indicates moderate atrophy. The cerebellum appears more severely affected. The visualized paranasal sinuses appear clear. The orbits are unremarkable. The temporal bones are unremarkable. The calvarium reveals no suspicious lesions. There are atherosclerotic calcifications of the internal carotid arteries. IMPRESSION: 1. No acute intracranial findings. 2. Moderate atrophy and moderate to severe chronic microangiopathic white matter change. *One or more of the following individualized dose reduction techniques were utilized for this examination: 1. Automated exposure control. 2. Adjustment of the mA and/or kV according to patient size. 3. Use of iterative reconstruction technique. Electronically signed by: Matilde Lafleur MD (12/29/2016 10:46 PM) [facility]
[2016-12-29 23:10] LABS: ALBUMIN 2.7 g/dL (3.4-5.0); CALCIUM 8.7 mg/dL (8.5-10.1); CREATININE 1.4 mg/dL (0.7-1.3); DIRECT BILIRUBIN 0.2 mg/dL (0.0-0.2); GFR 50.1; MAGNESIUM 2.1 mg/dL (1.8-2.4); POTASSIUM 3.6 mmol/L (3.5-5.1); TOTAL BILIRUBIN 0.6 mg/dL (0.2-1.0); TOTAL PROTEIN 6.8 g/dL (6.4-8.2)
[2016-12-29] MEDS ORDERED: cefTRIAXone SODIUM 1 GM VIAL IV ONE (23:30)
[2016-12-29] MEDS ORDERED: IV NORMAL SALINE 50ML 50 ML ONE ×2 (23:30→23:31)
[2016-12-29] MEDS ORDERED: AZITHROMYCIN 500 MG VIAL. IV ONE (23:30)
[2016-12-29] MEDS ORDERED: ACETAMINOPHEN 325 MG TABLET PO PRN (23:30)
[2016-12-29] MEDS ORDERED: IV NORMAL SALINE 250ML 250 ML ONE (23:30)
[2016-12-29] MEDS ORDERED: ONDANSETRON PF 4 MG/2 ML VIAL. IV PRN (23:30)
[2016-12-29] MEDS ORDERED: AZITHROMYCIN 500 MG in IV NORMAL SALINE 250ML 250 ML IV ONE (23:45)
[2016-12-29] MEDS ORDERED: IV NORMAL SALINE 1,000ML 1,000 ML IV ONE ×2 (23:45)
[2016-12-29] MEDS ORDERED: ONDANSETRON ODT 4 MG TAB.RAPDIS ONE (23:49)
[2016-12-30] VITALS (32 sets, daily range): BP systolic 78–125; BP diastolic 57–97
[2016-12-30] MEDS ORDERED: ONDANSETRON ODT 4 MG TAB.RAPDIS PO ONE (00:15)
[2016-12-30] MEDS ORDERED: IV NORMAL SALINE 250ML 250 ML ONE (00:27)
[2016-12-30] MEDS ORDERED: NOREPINEPHRINE BITARTRATE 4 MG/4 ML VIAL. IV ONE (00:27)
[2016-12-30] MEDS: NOREPINEPHRINE BITARTRATE 8 MG in IV NORMAL SALINE 250ML 250 ML IV PRN (00:28)
[2016-12-30 00:58] LABS: CLARITY,URINE CLEAR; COLOR,URINE AMBER
[2016-12-30 00:59] LABS: GLUCOSE,URINE 500 mg/dL (NEG); NITRITE,URINE NEG (NEG); UROBILINOGEN,URINE 1 mg/dL (0.2 mg/dL)
[2016-12-30 01:04] LABS: BILIRUBIN,URINE NEG (NEG)
[2016-12-30 01:05] LABS: AMORPHOUS SEDIMENT,UR PRESENT /HPF; BACTERIA,URINE MOD /HPF (0-FEW); GRANULAR CASTS,URINE OCC /HPF; SQUAMOUS EPITHELIAL CELL,UR FEW /LPF
[2016-12-30] MEDS: IV NORMAL SALINE 1,000ML 1,000 ML IV SCH ×10 (02:00→21:42)
--- NOTE | 2016-12-30 02:11 | EKG ---
[address] [address] Test Date: 2016-12-29 Test Time: 22:31:59 Pat Name: JUAN MARTINEZ Department: Room: ICU02 1 Gender: M General Handling Supervisor: LAKESHA : 1945 Requested By: TREVOR FRIEND Order Number: [id number] Reading MD: Jose Schneider MD Measurements Intervals [place] Rate: 128 P: GA: QRS: 52 QRSD: 92 T: 22 QT: 338 QTc: 497 Interpretive Statements NON-SPECIFIC ST/T CHANGES ATRIAL FIBRILLATION WITH RVR POSSIBLE PRIOR INFERIOR INFARCT Electronically Signed On 12-31-2016 10:02:21 INSTRUMENT LENS GRINDER APPRENTICE by Jose Schneider MD
[2016-12-30] MEDS ORDERED: IV NORMAL SALINE 500ML 500 ML IV PRN (02:30)
[2016-12-30] MEDS ORDERED: WARF4TAB68 PO (03:35)
--- NOTE | 2016-12-30 08:09 | RAD ---
EXAM: Chest, single view. HISTORY: Weakness. COMPARISON: 12/15/2016. FINDINGS: A frontal view of the chest is obtained. There is increased left retrocardiac opacity due to atelectasis or infiltrate. There may be a small left pleural effusion. There is no pneumothorax. The heart is normal in size. IMPRESSION: Suspected left lower lobe infiltrate or atelectasis and possible small left pleural effusion.
[2016-12-30] MEDS: CHOLECALCIFEROL (VITAMIN D3) 1,000 UNIT TABLET PO SCH (10:30)
[2016-12-30] MEDS: PANTOPRAZOLE 40 MG TABLET. PO SCH (10:30)
[2016-12-30] MEDS: PRIMIDONE 50 MG TABLET PO SCH (10:31)
[2016-12-30 10:56] LABS: BASO % 0 % (0-3); EOS % 0 % (0-3); HEMATOCRIT 34.6 % (39.0-53.0); HEMOGLOBIN 11.3 g/dL (13.0-17.5); LYMPH # 0.9 x10^3/uL (1.0-4.8); LYMPH % 8 % (24-48); MEAN CORPUSCULAR HEMOGLOBIN 28 pg (25-35); MEAN CORPUSCULAR HGB CONC 33 g/dL (31-37); MEAN CORPUSCULAR VOLUME 87 fL (79-100); MONO # 1.1 x10^3/uL (0.0-1.1); MONO % 9 % (0-9); NEUT # 9.9 x10^3uL (1.8-7.7); NEUT % 83 % (31-73); PLATELET COUNT 315 x10^3/uL (140-400); RED BLOOD COUNT 3.99 x10^6/uL (4.30-5.70); RED CELL DISTRIBUTION WIDTH 17.6 % (11.5-14.5); WHITE BLOOD COUNT 11.9 x10^3/uL (4.0-11.0)
[2016-12-30 11:13] LABS: ALBUMIN 2.3 g/dL (3.4-5.0); ALBUMIN/GLOBULIN RATIO 0.6 (1.0-1.7); CREATININE 1.2 mg/dL (0.7-1.3); GFR 59.9; POTASSIUM 3.9 mmol/L (3.5-5.1); TOTAL BILIRUBIN 0.4 mg/dL (0.2-1.0); TOTAL PROTEIN 5.9 g/dL (6.4-8.2)
[2016-12-30 11:22] LABS: CALCIUM 7.7 mg/dL (8.5-10.1)
[2016-12-30] MEDS ORDERED: DIGOXIN IV 500 MCG/2 ML AMPUL. IV ONE (12:15)
[2016-12-30] MEDS: CARBIDOPA/LEVODOPA 25/100MG TABLET PO SCH ×2 (12:25→17:33)
[2016-12-30] MEDS: INSULIN ASPART 300 UNITS/3 ML INSULN.PEN SQ SCH ×2 (12:26→17:33)
--- NOTE | 2016-12-30 13:31 | HP ---
ADMIT DATE: 12/29/2016 HISTORY OF PRESENT ILLNESS: The patient is a 71-year-old male patient who was brought to the Emergency Room after a mechanical fall for generalized weakness. The patient was recently seen here and was admitted to the hospital with atrial fibrillation with RVR, generalized weakness. On the day of admission while attempting to stand on an overhead light, the patient fell hitting his head on the ground, creating rug fernando to each of his knees and elbows bilaterally. The patient denied any headache, focal neurological weakness, but he is generally weak with a resting tremor. After he fell, he had urinary incontinence because he said he did not make it to the restroom. He denies any seizure activity or loss of consciousness. He denied any tongue biting. He apparently laid on the floor for about an hour before he was able to activate his Life Flight, [place] and was brought to the Emergency Room where he was extensively investigated and was found to be in atrial fibrillation with RVR. He was also found to be septic secondary to pneumonia, although seizure disorder might have also contributed to his marked lactic acidosis and urinary incontinence. His INR was prolonged and he was hypotensive, he required almost 4 liters of fluid and Levophed to maintain his mean arterial pressure above 65. When I saw him, he was started also on IV antibiotic for community-acquired pneumonia in the form of Rocephin and Zithromax. I held his metoprolol and Diltiazem because his blood pressure was low. PAST MEDICAL HISTORY: Significant for Parkinson disease. He is known to have hypertension, hyperlipidemia, type 2 diabetes mellitus, pulmonary embolism for which he is on Coumadin. He is also known to have atrial fibrillation with rapid ventricular response. PAST SURGICAL HISTORY: Significant for back surgery, cholecystectomy, and eye surgery for squint. ALLERGIES: He has no known drug allergies. MEDICATIONS: He is currently on following medications: Atorvastatin calcium 20 mg at bedtime, Invokana 300 mg once a day, carbidopa/levodopa 25/100 one tablet p.o. q.i.d., diltiazem extended release 120 mg once a day, metformin 1000 mg twice a day, metoprolol tartrate 25 mg p.o. b.i.d., omeprazole 40 mg daily, primidone 50 mg once a day, Requip 1 mg 3 times a day and warfarin sodium 4 mg, he takes 8 mg daily. FAMILY HISTORY: He is adopted and does not know his biological parents. He has 1 brother who lives in [place] and one sister in [place]. The other sister is in [place]. Third sister in [place]. SOCIAL HISTORY: He is , has 1 son who does not keep in touch. He never smoked, does not drink alcohol or use any recreational drugs. 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 REVIEW OF SYSTEMS: The patient denied any blurring of vision, cataract, glaucoma or macular degeneration. Denied any earache, tinnitus or sensorineural deafness. Denied any nosebleeds, stuffy nose or postnasal drip. Denied any sore throat, sore tongue, toothache, hoarseness of voice or difficulty swallowing. Denied any nausea, vomiting, diarrhea or constipation. Denied any hematemesis, melena or hematochezia. Denied any dysuria or frequency, but did complain of incontinence. Denied any shortness of breath, orthopnea, or paroxysmal nocturnal dyspnea. He did complain of cough, but no phlegm or hemoptysis. He denied any chills, rigors, or fever. PHYSICAL EXAMINATION: GENERAL: On arrival to the Emergency Room, he was pale, but no jaundice, cyanosis, or thyromegaly. No jugular venous distention. No limb edema. VITAL SIGNS: His heart rate was 113, blood pressure was 117/72, temperature was 98, respiratory rate was 22 and oxygen saturation was 93% on room air. HEENT: Showed normocephalic. He has rug burn on the left forehead. NECK: Supple. HEART: Showed regular first heart sounds. Normal second heart sounds with no gallop, rub or murmur. CHEST: Clear to auscultation. No crepitation or rhonchi. ABDOMEN: Distended, soft, nontender. NEUROLOGIC: He was awake, alert, responding appropriately. Cranial nerves intact. EXTREMITIES: He moves all extremities without difficulty. He has rug fernando on his elbows and both knees, more so on the left side. LABORATORY DATA: On arrival showed a white cell count of 12,800, hemoglobin 12.4, hematocrit 38, MCV was 87 and platelet count of 378,000 with normal manual differential. His chemistry showed serum sodium 140, potassium 3.6, chloride 103, bicarbonate 21, anion gap of 16, BUN 30, creatinine 1.4, estimated GFR was 50 mL per minute. His glucose 155, calcium was 8.7, magnesium 2.1. Total bilirubin, AST, ALT, alkaline phosphatase were normal. His pro B-type natriuretic peptide was 651. Total protein was 6.8, albumin was 2.7. His prothrombin time was 83.9, INR of 8.5, aPTT was 53. His urinalysis showed the urine was clear with a pH of 5.5 with specific gravity of 1.015. There was small amount of protein, large amount of glucose, trace of ketones, small amount of blood, negative for nitrite and leukocyte esterase. There were 3-5 rbc's, 1-4 wbc's, moderate amount of bacteria. He has had a CT scan of the head, which showed there is no intracranial hemorrhage; hypoattenuation within the white matter indicates moderate to severe chronic microangiopathic changes; prominence of the lateral ventricles and hemispheric sulci indicates moderate atrophy; ____ more severely affected. The visualized paranasal sinuses appear clear. The orbits are unremarkable. The temporal bones are unremarkable. The calvarium reveals no suspicious lesions. There is atherosclerotic calcification of the internal carotid arteries. His lactic acid was high at 6 mmol/L. ASSESSMENT: The patient was admitted to the ICU with mechanical fall, the cause of which is obviously not clearly known, he might have obviously postural hypotension given that he is known to have Parkinson disease, possibility of seizures is there also given that he became incontinent and he became acidotic with marked lactic acidosis. The patient was admitted to the ICU, started on IV fluid, IV antibiotic, also Levophed because his blood pressure was low. He was in atrial fibrillation with rapid ventricular response and unfortunately, we have to hold his metoprolol and Diltiazem because of low blood pressure. PLAN: My plan is to continue with IV antibiotic. Continue with IV fluid. I will give a loading dose of digoxin and consult the return to service inspector as well as neurologist for possibility of seizure disorder. Continue with IV Rocephin and Zithromax. Follow all his labs on daily basis and decide on further management accordingly. CHANG FLOWER MD DR: DAIJA/re JOB#: [id number] / [id number]
[2016-12-30] MEDS: rOPINIRole 1 MG TABLET. PO SCH ×2 (14:17→21:34)
[2016-12-30] MEDS: INSULIN DETEMIR 300 UNITS/3 ML INSULN.PEN. SQ SCH (21:34)
[2016-12-30] MEDS: ATORVASTATIN CALCIUM 20 MG TABLET PO SCH (21:34)
[2016-12-30] MEDS: METOPROLOL TART IMMED RELEASE 25 MG TABLET PO SCH (21:40)
[2016-12-30] MEDS: AZITHROMYCIN 500 MG in IV NORMAL SALINE 250ML 250 ML IV SCH (21:43)
[2016-12-31] VITALS (18 sets, daily range): BP systolic 93–139; BP diastolic 57–89
[2016-12-31 07:05] LABS: BASO % 0 % (0-3); EOS % 0 % (0-3); HEMATOCRIT 32.8 % (39.0-53.0); HEMOGLOBIN 10.9 g/dL (13.0-17.5); LYMPH % 11 % (24-48); MEAN CORPUSCULAR HEMOGLOBIN 29 pg (25-35); MEAN CORPUSCULAR HGB CONC 33 g/dL (31-37); MEAN CORPUSCULAR VOLUME 86 fL (79-100); MONO # 0.9 x10^3/uL (0.0-1.1); MONO % 10 % (0-9); NEUT # 7.2 x10^3uL (1.8-7.7); NEUT % 79 % (31-73); PLATELET COUNT 286 x10^3/uL (140-400); RED BLOOD COUNT 3.79 x10^6/uL (4.30-5.70); RED CELL DISTRIBUTION WIDTH 17.1 % (11.5-14.5); WHITE BLOOD COUNT 9.2 x10^3/uL (4.0-11.0)
[2016-12-31 07:07] LABS: ALBUMIN 2.2 g/dL (3.4-5.0); ALBUMIN/GLOBULIN RATIO 0.6 (1.0-1.7); CALCIUM 7.8 mg/dL (8.5-10.1); CREATININE 0.8 mg/dL (0.7-1.3); GFR 95.6; POTASSIUM 3.2 mmol/L (3.5-5.1); TOTAL BILIRUBIN 0.4 mg/dL (0.2-1.0); TOTAL PROTEIN 5.9 g/dL (6.4-8.2)
[2016-12-31] MEDS: INSULIN ASPART 300 UNITS/3 ML INSULN.PEN SQ SCH ×3 (07:30→16:30)
--- NOTE | 2016-12-31 07:30 | PN ---
DATE: 12/30/2016 SUBJECTIVE: The patient is resting, slightly propped up in bed, no apparent distress. He is awake, alert. On questioning him, he denied any complaint, he denied any headache, blurring of vision, did complain of cough, but no phlegm. Denied any chills, rigors or fever. PHYSICAL EXAMINATION: GENERAL: When I examined him this afternoon, he looked well and was clearly in no apparent respiratory distress, slightly pale, no jaundice, cyanosis, or thyromegaly. No jugular venous distension. No limb edema. VITAL SIGNS: His heart rate was 112, blood pressure was 108/72, temperature was 97.1, respiratory rate was 16, and oxygen saturation was 98% on 2 liters of oxygen nasal cannula. HEAD, EYES, EARS, NOSE AND THROAT: Showed normocephalic, status post fall with bruise and rug burn in his left forehead. NECK: Supple. HEART: Showed regular first heart sounds and normal second heart sounds with no gallop, rub or murmur. CHEST: Showed central trachea, equal bilateral chest expansion, air entry, vesicular breath sounds. No crepitation or rhonchi. ABDOMEN: Distended, soft, nontender. No guarding or rigidity. No organomegaly. Hernial orifices intact. Bowel sounds normal. NEUROLOGIC: He was awake, alert, responding appropriately. All his cranial nerves intact. He moves his extremities without difficulty. He has rug burn in both elbows and knees, more so on the left than the right. His intake was 1936, output 250. LABORATORY DATA: As of this morning showed his white cell count is 11,900, hemoglobin 11.3, hematocrit 34, MCV 87, and platelet count of 315,000. His chemistry showed a serum sodium 137, potassium 3.9, chloride 105, bicarbonate 18, anion gap of 14, BUN 33, creatinine 1.2, estimated GFR was 60 mL per minute. His glucose was 203, lactic acid is down to 1.6. His calcium was 7.7. Total bilirubin, AST, ALT, alkaline phosphatase were normal. His third set of troponin has trended to 0.058. His total protein was 5.9, albumin 2.3. ASSESSMENT: 1. Fall, possible syncope versus seizure disorder given that he became incontinent of urine. 2. Atrial fibrillation with rapid ventricular response. 3. Left lower lobe pneumonia with sepsis and lactic acidosis requiring 4 liters of IV fluid and Levophed. PLAN: My plan is to continue with IV fluid. Continue with IV antibiotic in the form of Zithromax and Rocephin for community-acquired pneumonia. I held his metoprolol and Diltiazem given that he is hypotensive. We have added digoxin 0.5 mg IV once. I will consult Dr. Hein for possible seizure disorder and Dr. Schneider as he continued to be in AFib with RVR as well as he has also slight elevation of his troponin. CHANG FLOWER MD DR: DAIJA/re JOB#: [id number] / [id number]
[2016-12-31] MEDS: CHOLECALCIFEROL (VITAMIN D3) 1,000 UNIT TABLET PO SCH (08:25)
[2016-12-31] MEDS: rOPINIRole 1 MG TABLET. PO SCH ×3 (08:25→20:19)
[2016-12-31] MEDS: PANTOPRAZOLE 40 MG TABLET. PO SCH (08:25)
[2016-12-31] MEDS: CARBIDOPA/LEVODOPA 25/100MG TABLET PO SCH ×4 (08:25→20:20)
[2016-12-31] MEDS: IV NORMAL SALINE 1,000ML 1,000 ML IV SCH (08:25)
[2016-12-31] MEDS: PRIMIDONE 50 MG TABLET PO SCH (08:26)
[2016-12-31] MEDS: METOPROLOL TART IMMED RELEASE 25 MG TABLET PO SCH ×2 (08:26→20:20)
[2016-12-31] MEDS ORDERED: PHYTONADIONE 10 MG/ML AMPUL. SQ ONE (09:00)
[2016-12-31] MEDS: POTASSIUM CHLORIDE 20 MEQ TABLET.ER. PO SCH ×2 (09:12→20:20)
--- NOTE | 2016-12-31 10:17 | PDOC2 ---
KYLE MONTANA APRN 12/31/16 1017: CONSULT Date of Admission DATE: 12/31/16 TIME: 10:07 Reason for Consult: atrial fibrillation with RVR Problem List Problems Medical Problems: (1) Atrial fibrillation with RVR Status: Acute (2) Closed head injury Status: Acute (3) Elevated INR Status: Acute (4) Pneumonia Status: Acute (5) Weakness Status: Acute History of Present Illness Mr Perkins is a 71 year old male with history of chronic atrial fibrillation and PE who presented to the ED after a mechanical fall. He reports that he was sitting on the couch and bent forward to pick something up. He says he overbalanced and fell forward onto the floor striking his head, arms and knees. He denies LOC. He denies lightheadedness or dizziness but was weak and unable to get up for some time. He does report urinary incontinence. He denies any other recent episodes of falling. He denies chest pain, dyspnea or congestive symptoms. He reports a cough off and on for about a week, non productive and denies any associated fever or chills. He denies any significant increase in edema. He reports an irregular heart beat but nothing new. He says he has had previous falls but "not for a long time". He is ambulatory and does need a personal injury litigation paralegal to help take care of his ADLs 3 days a week. Past Medical History 1. Pulmonary embolus 2015 2. Permanent atrial fibrillation. 3. Hypertension. 4. Dyslipidemia. 5. Parkinson disease. 6. type 2 diabetes mellitus Echo 12/17/16 The systolic function is mildly impaired. EF 50% - Likely due to afib. There is mild global hypokinesis of the left ventricle. Doppler and Color Flow revealed mild tricuspid regurgitation.The PA pressure was estimated at 43 mmHg. Past Surgical History back surgery, cholecystectomy, and eye surgery Family History FAMILY HISTORY: He is adopted. Social History The patient lives by himself with a caregiver. Denies any alcohol, tobacco, or illicit drug use. Current Medications Current Medications Diltiazem HCl (Cardizem) 20 mg 1X ONCE IVP Last administered on 12/29/16 22: 52; Start 12/29/16 at 22:30; Stop 12/29/16 at 22:31; Status DC Sodium Chloride 1,000 ml @ 1,000 mls/hr Q1H IV Last administered on 22:52; Start 12/29/16 at 22:30; Stop 12/29/16 at 23:29; Status DC Sodium Chloride (Normal Saline Flush) 10 ml QSHIFT PRN IV AFTER MEDS AND BLOOD DRAWS Last administered on 12/29/16 22:52; Start 12/29/16 at 22:15 Sodium Chloride 1,000 ml @ 1,000 mls/hr 1X ONCE IV Last administered on 12/29 23:45; Start 12/29/16 at 23:45; Stop 12/30/16 at 00:44; Status DC Azithromycin 500 mg/Sodium Chloride 250 ml @ 250 mls/hr 1X ONCE IV Last administered on 12/29/16 23:36; Start 12/29/16 at 23:45; Stop 12/30/16 at 00 :44; Status DC Ceftriaxone Sodium 1 gm/ Sodium Chloride 50 ml @ 100 mls/hr 1X ONCE IV Last administered on 12/29/16 23:33; Start 12/29/16 at 23:45; Stop 12/30/16 at 00 :14; Status DC Sodium Chloride 1,000 ml @ 1,000 mls/hr 1X ONCE IV ; Start 12/29/16 at 23:45 ; Stop 12/30/16 at 00:44; Status DC Sodium Chloride 250 ml @ As Directed STK-MED ONCE .ROUTE ; Start 12/29/16 at 23:30; Stop 12/29/16 at 23:31; Status DC Sodium Chloride 50 ml @ As Directed STK-MED ONCE .ROUTE ; Start 12/29/16 at 23: 30; Stop 12/29/16 at 23:31; Status DC Azithromycin (Zithromax) 500 mg STK-MED ONCE IV ; Start 12/29/16 at 23:30; Stop 12/29/16 at 23:31; Status DC Ceftriaxone Sodium (Rocephin) 1 gm STK-MED ONCE IV ; Start 12/29/16 at 23:30; Stop 12/29/16 at 23:31; Status DC Sodium Chloride 50 ml @ As Directed STK-MED ONCE .ROUTE ; Start 12/29/16 at 23: 31; Stop 12/29/16 at 23:32; Status DC Ondansetron HCl (Zofran) 4 mg PRN Q4HRS PRN IV NAUSEA/VOMITING; Start at 23:30; Stop 12/30/16 at 23:29; Status DC Acetaminophen (Tylenol) 650 mg PRN Q4HRS PRN PO FEVER; Start 12/29/16 at 23:30 ; Stop 12/30/16 at 23:29; Status DC Ondansetron HCl (Zofran Odt) 4 mg 1X ONCE PO Last administered on 12/30/16 00:15; Start 12/30/16 at 00:15; Stop 12/30/16 at 00:16; Status DC Ondansetron HCl (Zofran Odt) 4 mg STK-MED ONCE .ROUTE ; Start 12/29/16 at 23:49 ; Stop 12/29/16 at 23:50; Status DC Norepinephrine Bitartrate 8 mg/ Sodium Chloride 258 ml @ 0 mls/hr CONT PRN IV SEE I/O RECORD Last administered on 12/30/16 00:28; Start 12/30/16 at 00:30 Sodium Chloride 250 ml @ As Directed STK-MED ONCE .ROUTE ; Start 12/30/16 at 00:27; Stop 12/30/16 at 00:28; Status DC Norepinephrine Bitartrate (Levophed) 4 mg STK-MED ONCE IV ; Start 12/30/16 at 00:27; Stop 12/30/16 at 00:28; Status DC Sodium Chloride 1,000 ml @ 1,000 mls/hr Q1H IV Last administered on 02:00; Start 12/30/16 at 02:30; Stop 12/30/16 at 05:25; Status DC Sodium Chloride 500 ml @ 1,000 mls/hr PRN Q30MIN PRN IV SEE COMMENTS; Start 12/30/16 at 02:30 Sodium Chloride 1,000 ml @ 250 mls/hr Q4H IV Last administered on 12/30/16 07:30; Start 12/30/16 at 03:30; Stop 12/30/16 at 17:47; Status DC Sodium Chloride 1,000 ml @ 150 mls/hr Q6H40M IV Last administered on 06:00; Start 12/30/16 at 09:45; Stop 12/31/16 at 08:33; Status DC Azithromycin 500 mg/Sodium Chloride 250 ml @ 250 mls/hr Q24H IV Last administered on 12/30/16 21:43; Start 12/30/16 at 23:00 Ceftriaxone Sodium 1 gm/ Sodium Chloride 50 ml @ 100 mls/hr Q24H IV Last administered on 12/30/16 23:12; Start 12/30/16 at 23:00 Insulin Aspart (NovoLOG) 30 units TIDAC SQ Last administered on 12/30/16 17: 33; Start 12/30/16 at 11:30 Insulin Detemir (Levemir) 95 units QHS SQ Last administered on 12/30/16 21:34 ; Start 12/30/16 at 21:00 Vitamin D (Vitamin D3) 5,000 unit DAILY PO Last administered on 12/31/16 08: 25; Start 12/30/16 at 10:00 Atorvastatin Calcium (Lipitor) 20 mg QHS PO Last administered on 12/30/16 21: 34; Start 12/30/16 at 21:00 Primidone (Mysoline) 50 mg [id number] PO Last administered on 12/31/16 08:26 ; Start 12/30/16 at 10:00 Carbidopa/Levodopa (Sinemet 25/100) 1 tab [id number] PO Last administered on 08:25; Start 12/30/16 at 12:00 Ropinirole HCl (Requip) 1 mg TID PO Last administered on 12/31/16 08:25; Start 12/30/16 at 14:00 Pantoprazole Sodium (Protonix) 40 mg DAILYAC PO Last administered on 08:25; Start 12/30/16 at 10:00 Digoxin (Lanoxin) 500 mcg 1X ONCE IV Last administered on 12/30/16 12:25; Start 12/30/16 at 12:15; Stop 12/30/16 at 12:16; Status DC Diltiazem HCl (Cardizem 24hr Cd) 120 mg DAILY PO Last administered on 08:26; Start 12/31/16 at 09:00 Metoprolol Tartrate (Lopressor) 25 mg BID PO Last administered on 12/31/16 08 :26; Start 12/30/16 at 22:00 Phytonadione (Vitamin K) 2 mg 1X ONCE SQ Last administered on 12/31/16 09:22 ; Start 12/31/16 at 09:00; Stop 12/31/16 at 09:01; Status DC Potassium Chloride (Klor-Con) 40 meq BID PO Last administered on 12/31/16 09: 12; Start 12/31/16 at 09:00; Stop 01/01/17 at 08:59 Active Scripts Active Metoprolol Tartrate 25 Mg Tablet 25 Mg PO BID 90 Days Reported Coumadin (Warfarin Sodium) 4 Mg Tablet 8 Mg PO DAILY Primidone 50 Mg Tablet 50 Mg PO DAILY Cartia Xt (Diltiazem Hcl) 120 Mg Cap.er.24h 120 Mg PO DAILY Atorvastatin Calcium 20 Mg Tablet 20 Mg PO QHS Omeprazole 40 Mg Capsule.dr 40 Mg PO DAILY Ropinirole Hcl 1 Mg Tablet 1 Mg PO TID Carbidopa-Levodopa 25-100 Tab (Carbidopa/Levodopa) 1 Each Tablet 25-100 Tab PO QID Invokana (Canagliflozin) 300 Mg Tablet 300 Mg PO DAILY Metformin Hcl 500 Mg Tablet 2 Tab PO BID Allergies: Coded Allergies: No Known Drug Allergies (Unverified , 07/13/14) Review of System as per HPI General: Alert, Oriented X3, Cooperative, No acute distress HEENT: Mucous membr. moist/pink Lungs: Other (crackles left base) Heart: Other (irregular rate and rhythm without gallops, clicks or rubs) Abdomen: Normal bowel sounds, Soft, No tenderness Extremities: Other (+1 edema bilateral lower extremities) Neuro: Normal speech, Strength at 5/5 X4 ext Psych/Mental Status: Mental status NL, Mood NL VITALS Vital Signs Date Time Temp Pulse Resp B/P (MAP) Pulse Ox O2 Delivery O2 Flow Rate FiO2 12/31/16 09:15 118 20 118/84 (95) 93 Nasal Cannula 2.0 12/31/16 04:00 97.9 Labs Laboratory Tests Test 12/29/16 22:07 12/29/16 22:09 12/29/16 23:55 12/30/16 00:05 White Blood Count 12.8 x10^3/uL (4.0-11.0) Red Blood Count 4.39 x10^6/uL (4.30-5.70) Hemoglobin 12.4 g/dL (13.0-17.5) Hematocrit 38.3 % (39.0-53.0) Mean Corpuscular Volume 87 fL (79-100) Mean Corpuscular Hemoglobin 28 pg (25-35) Mean Corpuscular Hemoglobin Concent 33 g/dL (31-37) Red Cell Distribution Width 17.4 % (11.5-14.5) Platelet Count 378 x10^3/uL (140-400) Neutrophils (%) (Auto) 82 % (31-73) Lymphocytes (%) (Auto) 7 % (24-48) Monocytes (%) (Auto) 11 % (0-9) Eosinophils (%) (Auto) 0 % (0-3) Basophils (%) (Auto) 0 % (0-3) Neutrophils # (Auto) 10.5 x10^3uL (1.8-7.7) Lymphocytes # (Auto) 0.9 x10^3/uL (1.0-4.8) Monocytes # (Auto) 1.4 x10^3/uL (0.0-1.1) Eosinophils # (Auto) 0.0 x10^3/uL (0.0-0.7) Basophils # (Auto) 0.0 x10^3/uL (0.0-0.2) Prothrombin Time 83.9 SEC (9.4-11.4) Prothromb Time International Ratio 8.5 (0.9-1.1) Activated Partial Thromboplast Time 53 SEC (23-33) Sodium Level 140 mmol/L (136-145) Potassium Level 3.6 mmol/L (3.5-5.1) Chloride Level 103 mmol/L (98-107) Carbon Dioxide Level 21 mmol/L (21-32) Anion Gap 16 (6-14) Blood Urea Nitrogen 30 mg/dL (8-26) Creatinine 1.4 mg/dL (0.7-1.3) Estimated GFR (Cockcroft-Gault) 50.1 Glucose Level 155 mg/dL (70-99) Calcium Level 8.7 mg/dL (8.5-10.1) Magnesium Level 2.1 mg/dL (1.8-2.4) Total Bilirubin 0.6 mg/dL (0.2-1.0) Direct Bilirubin 0.2 mg/dL (0.0-0.2) Aspartate Amino Transf (AST/SGOT) 26 U/L (15-37) Alanine Aminotransferase (ALT/SGPT) 10 U/L (16-63) Alkaline Phosphatase 63 U/L (46-116) Creatine Kinase 46 U/L (39-308) Creatine Kinase MB (Mass) 0.6 ng/mL (0.0-3.6) Creatine Kinase MB Relative Index 1.3 % (0-4) Troponin I Quantitative < 0.017 ng/mL (0-0.055) TW-Tlq-H-Type Natriuretic Peptide 651 pg/mL (0-124) Total Protein 6.8 g/dL (6.4-8.2) Albumin 2.7 g/dL (3.4-5.0) Thyroid Stimulating Hormone (TSH) 1.175 uIU/mL (0.358-3.740) Lactic Acid Level 6.0 mmol/L (0.4-2.0) Urine Collection Type Unknown Urine Color Audrey Urine Clarity Clear Urine pH 5.5 Urine Specific [place] 1.015 Urine Protein 100 mg/dl (NEG-TRACE) Urine Glucose (UA) 500 mg/dL (NEG) Urine Ketones (Stick) Trace mg/dL (NEG) Urine Blood Small (NEG) Urine Nitrite Neg (NEG) Urine Bilirubin Neg (NEG) Urine Urobilinogen Dipstick 1 mg/dL (0.2 mg/dL) Urine Leukocyte Esterase Neg (NEG) Urine RBC 3-5 /HPF (0-2) Urine WBC 1-4 /HPF (0-4) Urine Squamous Epithelial Cells Few /LPF Urine Renal Epithelial Cells Occ /LPF Urine Amorphous Sediment Present /HPF Urine Bacteria Mod /HPF (0-FEW) Urine Granular Casts Occ /HPF Urine Mucus Marked /LPF Nasal Screen MRSA (PCR) Negative (Negative) Test 12/30/16 01:05 12/30/16 01:30 12/30/16 04:25 12/30/16 08:16 Glucose (Fingerstick) 151 mg/dL (70-99) 117 mg/dL (70-99) Lactic Acid Level 4.7 mmol/L (0.4-2.0) Troponin I Quantitative < 0.017 ng/mL (0-0.055) Test 12/30/16 10:47 12/30/16 11:57 12/30/16 16:51 12/30/16 21:08 White Blood Count 11.9 x10^3/uL (4.0-11.0) Red Blood Count 3.99 x10^6/uL (4.30-5.70) Hemoglobin 11.3 g/dL (13.0-17.5) Hematocrit 34.6 % (39.0-53.0) Mean Corpuscular Volume 87 fL (79-100) Mean Corpuscular Hemoglobin 28 pg (25-35) Mean Corpuscular Hemoglobin Concent 33 g/dL (31-37) Red Cell Distribution Width 17.6 % (11.5-14.5) Platelet Count 315 x10^3/uL (140-400) Neutrophils (%) (Auto) 83 % (31-73) Lymphocytes (%) (Auto) 8 % (24-48) Monocytes (%) (Auto) 9 % (0-9) Eosinophils (%) (Auto) 0 % (0-3) Basophils (%) (Auto) 0 % (0-3) Neutrophils # (Auto) 9.9 x10^3uL (1.8-7.7) Lymphocytes # (Auto) 0.9 x10^3/uL (1.0-4.8) Monocytes # (Auto) 1.1 x10^3/uL (0.0-1.1) Eosinophils # (Auto) 0.0 x10^3/uL (0.0-0.7) Basophils # (Auto) 0.0 x10^3/uL (0.0-0.2) Sodium Level 137 mmol/L (136-145) Potassium Level 3.9 mmol/L (3.5-5.1) Chloride Level 105 mmol/L (98-107) Carbon Dioxide Level 18 mmol/L (21-32) Anion Gap 14 (6-14) Blood Urea Nitrogen 33 mg/dL (8-26) Creatinine 1.2 mg/dL (0.7-1.3) Estimated GFR (Cockcroft-Gault) 59.9 BUN/Creatinine Ratio 28 (6-20) Glucose Level 203 mg/dL (70-99) Lactic Acid Level 1.6 mmol/L (0.4-2.0) Calcium Level 7.7 mg/dL (8.5-10.1) Total Bilirubin 0.4 mg/dL (0.2-1.0) Aspartate Amino Transf (AST/SGOT) 38 U/L (15-37) Alanine Aminotransferase (ALT/SGPT) 21 U/L (16-63) Alkaline Phosphatase 56 U/L (46-116) Lactate Dehydrogenase 185 U/L (85-227) Troponin I Quantitative 0.058 ng/mL (0-0.055) Total Protein 5.9 g/dL (6.4-8.2) Albumin 2.3 g/dL (3.4-5.0) Albumin/Globulin Ratio 0.6 (1.0-1.7) Glucose (Fingerstick) 186 mg/dL (70-99) 133 mg/dL (70-99) 153 mg/dL (70-99) Test 12/31/16 05:40 12/31/16 07:33 White Blood Count 9.2 x10^3/uL (4.0-11.0) Red Blood Count 3.79 x10^6/uL (4.30-5.70) Hemoglobin 10.9 g/dL (13.0-17.5) Hematocrit 32.8 % (39.0-53.0) Mean Corpuscular Volume 86 fL (79-100) Mean Corpuscular Hemoglobin 29 pg (25-35) Mean Corpuscular Hemoglobin Concent 33 g/dL (31-37) Red Cell Distribution Width 17.1 % (11.5-14.5) Platelet Count 286 x10^3/uL (140-400) Neutrophils (%) (Auto) 79 % (31-73) Lymphocytes (%) (Auto) 11 % (24-48) Monocytes (%) (Auto) 10 % (0-9) Eosinophils (%) (Auto) 0 % (0-3) Basophils (%) (Auto) 0 % (0-3) Neutrophils # (Auto) 7.2 x10^3uL (1.8-7.7) Lymphocytes # (Auto) 1.0 x10^3/uL (1.0-4.8) Monocytes # (Auto) 0.9 x10^3/uL (0.0-1.1) Eosinophils # (Auto) 0.0 x10^3/uL (0.0-0.7) Basophils # (Auto) 0.0 x10^3/uL (0.0-0.2) Prothrombin Time 90.0 SEC (9.4-11.4) Prothromb Time International Ratio 9.1 (0.9-1.1) Sodium Level 140 mmol/L (136-145) Potassium Level 3.2 mmol/L (3.5-5.1) Chloride Level 107 mmol/L (98-107) Carbon Dioxide Level 22 mmol/L (21-32) Anion Gap 11 (6-14) Blood Urea Nitrogen 25 mg/dL (8-26) Creatinine 0.8 mg/dL (0.7-1.3) Estimated GFR (Cockcroft-Gault) 95.6 BUN/Creatinine Ratio 31 (6-20) Glucose Level 90 mg/dL (70-99) Calcium Level 7.8 mg/dL (8.5-10.1) Total Bilirubin 0.4 mg/dL (0.2-1.0) Aspartate Amino Transf (AST/SGOT) 27 U/L (15-37) Alanine Aminotransferase (ALT/SGPT) 30 U/L (16-63) Alkaline Phosphatase 52 U/L (46-116) Total Protein 5.9 g/dL (6.4-8.2) Albumin 2.2 g/dL (3.4-5.0) Albumin/Globulin Ratio 0.6 (1.0-1.7) Glucose (Fingerstick) 59 mg/dL (70-99) Images EKG - atrial fibrillation with RVR, IWMI age undetermined, no acute ischemic changes CXR - IMPRESSION: Suspected left lower lobe infiltrate or atelectasis and possible small left pleural effusion. CT head- IMPRESSION: 1. No acute intracranial findings. 2. Moderate atrophy and moderate to severe chronic microangiopathic white matter change. Assessment/Plan 1. atrial fibrillation with RVR - chronic, tachycardia likely reactive secondary to #3-4. Continue home medications, add digoxin. Mgmt of infectious process. 2. mechanical fall, unclear cause - neuro consulted 3. pneumonia - mgmt per PCP 4. sepsis with lactic acidosis - lactic acid normalized after several liters of fluids and antibiotics. 5. coagulopathy - Vit K given. Continue to hold coumadin. Would recommend PT eval for fall risk, prior to resuming. 6. diabetes mellitus - per PCP 7. hypertension - pressures well controlled currently 8. hyperlipidemia - check lipids. Continue supportive care. Problems: EMELIA KHAN MD 12/31/16 1438: CONSULT Allergies: Coded Allergies: No Known Drug Allergies (Unverified , 07/13/14) Assessment/Plan Pt. seen and examined. 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 71 y.o male presenting with mechanical fall. Afib with RVR. Given dig, HR better. Hold coumadin, Vitamin K given. Supportive care for now. If HR still elevated tomorrow, stop metoprolol and start dig daily. Would benefit from SNF. THanks. Problems: KYLE MONTANA APRN Dec 31, 2016 10:17 EMELIA KHAN MD Dec 31, 2016 14:38
[2016-12-31] MEDS ORDERED: DIGOXIN IV 500 MCG/2 ML AMPUL. IV ONE (11:00)
[2016-12-31] MEDS: INSULIN DETEMIR 300 UNITS/3 ML INSULN.PEN. SQ SCH (18:59)
[2016-12-31] MEDS: LACTOBACILLUS RHAMNOSUS GG 1 CAPSULE. PO SCH (20:20)
[2016-12-31] MEDS: ATORVASTATIN CALCIUM 20 MG TABLET PO SCH (20:20)
[2016-12-31] MEDS ORDERED: POTASSIUM CHLORIDE 20 MEQ TABLET.ER. PO ONE (21:00)
[2016-12-31] MEDS: AZITHROMYCIN 500 MG in IV NORMAL SALINE 250ML 250 ML IV SCH (23:29)
[2017-01-01] VITALS (10 sets, daily range): BP systolic 101–129; BP diastolic 59–86
--- NOTE | 2017-01-01 03:19 | PN ---
DATE: 12/31/2016 CURRENT PROBLEMS: 1. Septic shock. 2. Left lower lobe infiltrate. 3. UTI ruled out. 4. Type 2 diabetes. 5. Atrial fibrillation with RVR. 6. Dehydration. 7. Hypokalemia. 8. Severe protein-calorie malnutrition. 9. Supratherapeutic INR. 10. Normochromic normocytic anemia. 11. Mechanical fall. SUBJECTIVE: This is a 71-year-old gentleman who was admitted by Dr. Howard with the above problems. He actually feels better now and he is off the Levophed drip and has resumed his medications for his AFib. He also was found to have an INR of 9 today. He was given some vitamin K subcutaneously. He does not exhibit any signs of bleeding. OBJECTIVE: VITAL SIGNS: Blood pressure 106/76, pulse 91, respirations 18, pulse ox is 95% on 2 liters. He is sitting up in his chair, is pleasant, cooperative, large rug burn on his left forehead. Nose is patent. Throat clear. NECK: Supple. LUNGS: With a few crackles in the bases. CARDIOVASCULAR: Rapid irregular rhythm and rate. ABDOMEN: Soft, nontender. EXTREMITIES: Without edema. LABORATORY DATA: White blood cell count down to 9.2 from 12.8, potassium 3.2 this morning. Urine culture is negative, but his INR is 9. PLAN: The patient received vitamin K. Monitor his blood pressure. PT and OT, continue antibiotics and is on a probiotic. RUIZ CANDELARIA DO DR: ABUNDIO/re JOB#: [id number] / [id number]
[2017-01-01] MEDS: CARBIDOPA/LEVODOPA 25/100MG TABLET PO SCH ×6 (05:50→20:54)
[2017-01-01 06:17] LABS: HEMATOCRIT 32.5 % (39.0-53.0); HEMOGLOBIN 10.5 g/dL (13.0-17.5); RED BLOOD COUNT 3.7 x10^6/uL (4.30-5.70); RED CELL DISTRIBUTION WIDTH 17.4 % (11.5-14.5)
[2017-01-01 06:57] LABS: CALCIUM 8.3 mg/dL (8.5-10.1); CREATININE 0.7 mg/dL (0.7-1.3); GFR 111.5; POTASSIUM 3.4 mmol/L (3.5-5.1)
[2017-01-01] MEDS: INSULIN ASPART 300 UNITS/3 ML INSULN.PEN SQ SCH ×3 (07:30→16:30)
[2017-01-01] MEDS: PANTOPRAZOLE 40 MG TABLET. PO SCH (08:33)
[2017-01-01] MEDS: METOPROLOL TART IMMED RELEASE 25 MG TABLET PO SCH (08:34)
[2017-01-01] MEDS: CHOLECALCIFEROL (VITAMIN D3) 1,000 UNIT TABLET PO SCH (08:34)
[2017-01-01] MEDS: POTASSIUM CHLORIDE 20 MEQ TABLET.ER. PO SCH (08:34)
[2017-01-01] MEDS: rOPINIRole 1 MG TABLET. PO SCH ×3 (08:34→20:54)
[2017-01-01] MEDS: LACTOBACILLUS RHAMNOSUS GG 1 CAPSULE. PO SCH ×2 (08:34→20:53)
[2017-01-01] MEDS: PRIMIDONE 50 MG TABLET PO SCH (08:35)
--- NOTE | 2017-01-01 09:24 | PDOC ---
PROGRESS NOTES Diagnosis Problem Problems Medical Problems: (1) Atrial fibrillation with RVR Status: Acute (2) Closed head injury Status: Acute (3) Elevated INR Status: Acute (4) Pneumonia Status: Acute (5) Weakness Status: Acute Assessment Problems Medical Problems: (1) Atrial fibrillation with RVR Status: Acute (2) Closed head injury Status: Acute (3) Elevated INR Status: Acute (4) Pneumonia Status: Acute (5) Weakness Status: Acute 1. atrial fibrillation with RVR - chronic, rate improving but remains >100 this am at rest. Add digoxin daily, will need digoxin level on Saturday. metoprolol held to avoid development of isac. 2. mechanical fall, unclear cause - neuro following 3. pneumonia - persistent left lower lobe infiltrate by CXR. mgmt per PCP 4. sepsis with lactic acidosis - lactic acid normalized after several liters of fluids and antibiotics. 5. coagulopathy - Vit K given. Coumadin on hold. Recommend PT eval for fall risk, prior to resuming. 6. diabetes mellitus - per PCP 7. hypertension - pressures well controlled currently 8. hyperlipidemia - controlled. Continue current therapy. Problems: Subjective no new complaints. no chest pain, breathing easy, +cough Objective Vital Signs Date Time Temp Pulse Resp B/P (MAP) Pulse Ox O2 Delivery O2 Flow Rate FiO2 01/01/17 08:34 122 111/61 01/01/17 08:00 Room Air 01/01/17 06:47 97.7 16 90 2.0 Intake and Output 01/01/17 07:00 Intake Total 2820 ml Output Total 2200 ml Balance 620 ml Intake Oral 1770 ml IV Total 1050 ml Output Urine Total 2200 ml # Voids 2 Abdomen: Normal bowel sounds, Soft Heart: Other (irregular rate and rhythm) Extremities: Other (+1 edema) General: Alert, Oriented X3, Cooperative Lungs: Other (left basilar crackles) Neuro: Normal speech Psych/Mental Status: Mental status NL, Mood NL Review of Relevant I have reviewed the following items leobardo (where applicable) has been applied. Labs Laboratory Tests Test 12/30/16 10:47 12/30/16 11:57 12/30/16 16:51 12/30/16 21:08 White Blood Count 11.9 x10^3/uL (4.0-11.0) Red Blood Count 3.99 x10^6/uL (4.30-5.70) Hemoglobin 11.3 g/dL (13.0-17.5) Hematocrit 34.6 % (39.0-53.0) Mean Corpuscular Volume 87 fL (79-100) Mean Corpuscular Hemoglobin 28 pg (25-35) Mean Corpuscular Hemoglobin Concent 33 g/dL (31-37) Red Cell Distribution Width 17.6 % (11.5-14.5) Platelet Count 315 x10^3/uL (140-400) Neutrophils (%) (Auto) 83 % (31-73) Lymphocytes (%) (Auto) 8 % (24-48) Monocytes (%) (Auto) 9 % (0-9) Eosinophils (%) (Auto) 0 % (0-3) Basophils (%) (Auto) 0 % (0-3) Neutrophils # (Auto) 9.9 x10^3uL (1.8-7.7) Lymphocytes # (Auto) 0.9 x10^3/uL (1.0-4.8) Monocytes # (Auto) 1.1 x10^3/uL (0.0-1.1) Eosinophils # (Auto) 0.0 x10^3/uL (0.0-0.7) Basophils # (Auto) 0.0 x10^3/uL (0.0-0.2) Sodium Level 137 mmol/L (136-145) Potassium Level 3.9 mmol/L (3.5-5.1) Chloride Level 105 mmol/L (98-107) Carbon Dioxide Level 18 mmol/L (21-32) Anion Gap 14 (6-14) Blood Urea Nitrogen 33 mg/dL (8-26) Creatinine 1.2 mg/dL (0.7-1.3) Estimated GFR (Cockcroft-Gault) 59.9 BUN/Creatinine Ratio 28 (6-20) Glucose Level 203 mg/dL (70-99) Lactic Acid Level 1.6 mmol/L (0.4-2.0) Calcium Level 7.7 mg/dL (8.5-10.1) Total Bilirubin 0.4 mg/dL (0.2-1.0) Aspartate Amino Transf (AST/SGOT) 38 U/L (15-37) Alanine Aminotransferase (ALT/SGPT) 21 U/L (16-63) Alkaline Phosphatase 56 U/L (46-116) Lactate Dehydrogenase 185 U/L (85-227) Troponin I Quantitative 0.058 ng/mL (0-0.055) Total Protein 5.9 g/dL (6.4-8.2) Albumin 2.3 g/dL (3.4-5.0) Albumin/Globulin Ratio 0.6 (1.0-1.7) Glucose (Fingerstick) 186 mg/dL (70-99) 133 mg/dL (70-99) 153 mg/dL (70-99) Test 12/31/16 05:40 12/31/16 07:33 12/31/16 11:28 12/31/16 17:19 White Blood Count 9.2 x10^3/uL (4.0-11.0) Red Blood Count 3.79 x10^6/uL (4.30-5.70) Hemoglobin 10.9 g/dL (13.0-17.5) Hematocrit 32.8 % (39.0-53.0) Mean Corpuscular Volume 86 fL (79-100) Mean Corpuscular Hemoglobin 29 pg (25-35) Mean Corpuscular Hemoglobin Concent 33 g/dL (31-37) Red Cell Distribution Width 17.1 % (11.5-14.5) Platelet Count 286 x10^3/uL (140-400) Neutrophils (%) (Auto) 79 % (31-73) Lymphocytes (%) (Auto) 11 % (24-48) Monocytes (%) (Auto) 10 % (0-9) Eosinophils (%) (Auto) 0 % (0-3) Basophils (%) (Auto) 0 % (0-3) Neutrophils # (Auto) 7.2 x10^3uL (1.8-7.7) Lymphocytes # (Auto) 1.0 x10^3/uL (1.0-4.8) Monocytes # (Auto) 0.9 x10^3/uL (0.0-1.1) Eosinophils # (Auto) 0.0 x10^3/uL (0.0-0.7) Basophils # (Auto) 0.0 x10^3/uL (0.0-0.2) Prothrombin Time 90.0 SEC (9.4-11.4) Prothromb Time International Ratio 9.1 (0.9-1.1) Sodium Level 140 mmol/L (136-145) Potassium Level 3.2 mmol/L (3.5-5.1) Chloride Level 107 mmol/L (98-107) Carbon Dioxide Level 22 mmol/L (21-32) Anion Gap 11 (6-14) Blood Urea Nitrogen 25 mg/dL (8-26) Creatinine 0.8 mg/dL (0.7-1.3) Estimated GFR (Cockcroft-Gault) 95.6 BUN/Creatinine Ratio 31 (6-20) Glucose Level 90 mg/dL (70-99) Calcium Level 7.8 mg/dL (8.5-10.1) Total Bilirubin 0.4 mg/dL (0.2-1.0) Aspartate Amino Transf (AST/SGOT) 27 U/L (15-37) Alanine Aminotransferase (ALT/SGPT) 30 U/L (16-63) Alkaline Phosphatase 52 U/L (46-116) Total Protein 5.9 g/dL (6.4-8.2) Albumin 2.2 g/dL (3.4-5.0) Albumin/Globulin Ratio 0.6 (1.0-1.7) Triglycerides Level 47 mg/dL (0-150) Cholesterol Level 80 mg/dL (0-200) LDL Cholesterol, Calculated 38 mg/dL (0-100) VLDL Cholesterol, Calculated 9 mg/dL (0-40) Non-HDL Cholesterol Calculated 47 mg/dL (0-129) HDL Cholesterol 33 mg/dL (40-60) Cholesterol/HDL Ratio 2.0 Glucose (Fingerstick) 59 mg/dL (70-99) 96 mg/dL (70-99) 81 mg/dL (70-99) Test 12/31/16 20:38 01/01/17 05:56 01/01/17 06:25 Glucose (Fingerstick) 74 mg/dL (70-99) White Blood Count 8.0 x10^3/uL (4.0-11.0) Red Blood Count 3.70 x10^6/uL (4.30-5.70) Hemoglobin 10.5 g/dL (13.0-17.5) Hematocrit 32.5 % (39.0-53.0) Mean Corpuscular Volume 88 fL (79-100) Mean Corpuscular Hemoglobin 28 pg (25-35) Mean Corpuscular Hemoglobin Concent 32 g/dL (31-37) Red Cell Distribution Width 17.4 % (11.5-14.5) Platelet Count 250 x10^3/uL (140-400) Prothrombin Time 31.2 SEC (9.4-11.4) Prothromb Time International Ratio 3.1 (0.9-1.1) Sodium Level 141 mmol/L (136-145) Potassium Level 3.4 mmol/L (3.5-5.1) Chloride Level 107 mmol/L (98-107) Carbon Dioxide Level 21 mmol/L (21-32) Anion Gap 13 (6-14) Blood Urea Nitrogen 16 mg/dL (8-26) Creatinine 0.7 mg/dL (0.7-1.3) Estimated GFR (Cockcroft-Gault) 111.5 Glucose Level 63 mg/dL (70-99) Calcium Level 8.3 mg/dL (8.5-10.1) Microbiology 12/29/16 Blood Culture - Preliminary, Resulted NO GROWTH AFTER 2 DAYS 12/30/16 Urine Culture - Preliminary, Resulted 12/30/16 Urine Culture Result 1 (MALATHI) - Preliminary, Resulted Medications Current Medications Diltiazem HCl (Cardizem) 20 mg 1X ONCE IVP Last administered on 12/29/16 22: 52; Start 12/29/16 at 22:30; Stop 12/29/16 at 22:31; Status DC Sodium Chloride 1,000 ml @ 1,000 mls/hr Q1H IV Last administered on 22:52; Start 12/29/16 at 22:30; Stop 12/29/16 at 23:29; Status DC Sodium Chloride (Normal Saline Flush) 10 ml QSHIFT PRN IV AFTER MEDS AND BLOOD DRAWS Last administered on 12/29/16 22:52; Start 12/29/16 at 22:15 Sodium Chloride 1,000 ml @ 1,000 mls/hr 1X ONCE IV Last administered on 12/29 23:45; Start 12/29/16 at 23:45; Stop 12/30/16 at 00:44; Status DC Azithromycin 500 mg/Sodium Chloride 250 ml @ 250 mls/hr 1X ONCE IV Last administered on 12/29/16t 23:36; Start 12/29/16 at 23:45; Stop 12/30/16 at 00 :44; Status DC Ceftriaxone Sodium 1 gm/ Sodium Chloride 50 ml @ 100 mls/hr 1X ONCE IV Last administered on 12/29/16t 23:33; Start 12/29/16 at 23:45; Stop 12/30/16 at 00 :14; Status DC Sodium Chloride 1,000 ml @ 1,000 mls/hr 1X ONCE IV ; Start 12/29/16 at 23:45 ; Stop 12/30/16 at 00:44; Status DC Sodium Chloride 250 ml @ As Directed STK-MED ONCE .ROUTE ; Start 12/29/16 at 23:30; Stop 12/29/16 at 23:31; Status DC Sodium Chloride 50 ml @ As Directed STK-MED ONCE .ROUTE ; Start 12/29/16 at 23: 30; Stop 12/29/16 at 23:31; Status DC Azithromycin (Zithromax) 500 mg STK-MED ONCE IV ; Start 12/29/16 at 23:30; Stop 12/29/16 at 23:31; Status DC Ceftriaxone Sodium (Rocephin) 1 gm STK-MED ONCE IV ; Start 12/29/16 at 23:30; Stop 12/29/16 at 23:31; Status DC Sodium Chloride 50 ml @ As Directed STK-MED ONCE .ROUTE ; Start 12/29/16 at 23: 31; Stop 12/29/16 at 23:32; Status DC Ondansetron HCl (Zofran) 4 mg PRN Q4HRS PRN IV NAUSEA/VOMITING; Start at 23:30; Stop 12/30/16 at 23:29; Status DC Acetaminophen (Tylenol) 650 mg PRN Q4HRS PRN PO FEVER; Start 12/29/16 at 23:30 ; Stop 12/30/16 at 23:29; Status DC Ondansetron HCl (Zofran Odt) 4 mg 1X ONCE PO Last administered on 12/30/16t 00:15; Start 12/30/16 at 00:15; Stop 12/30/16 at 00:16; Status DC Ondansetron HCl (Zofran Odt) 4 mg STK-MED ONCE .ROUTE ; Start 12/29/16 at 23:49 ; Stop 12/29/16 at 23:50; Status DC Norepinephrine Bitartrate 8 mg/ Sodium Chloride 258 ml @ 0 mls/hr CONT PRN IV SEE I/O RECORD Last administered on 12/30/16 00:28; Start 12/30/16 at 00:30 Sodium Chloride 250 ml @ As Directed STK-MED ONCE .ROUTE ; Start 12/30/16 at 00:27; Stop 12/30/16 at 00:28; Status DC Norepinephrine Bitartrate (Levophed) 4 mg STK-MED ONCE IV ; Start 12/30/16 at 00:27; Stop 12/30/16 at 00:28; Status DC Sodium Chloride 1,000 ml @ 1,000 mls/hr Q1H IV Last administered on 02:00; Start 12/30/16 at 02:30; Stop 12/30/16 at 05:25; Status DC Sodium Chloride 500 ml @ 1,000 mls/hr PRN Q30MIN PRN IV SEE COMMENTS; Start 12/30/16 at 02:30 Sodium Chloride 1,000 ml @ 250 mls/hr Q4H IV Last administered on 12/30/16 07:30; Start 12/30/16 at 03:30; Stop 12/30/16 at 17:47; Status DC Sodium Chloride 1,000 ml @ 150 mls/hr Q6H40M IV Last administered on 06:00; Start 12/30/16 at 09:45; Stop 12/31/16 at 08:33; Status DC Azithromycin 500 mg/Sodium Chloride 250 ml @ 250 mls/hr Q24H IV Last administered on 12/31/16 23:29; Start 12/30/16 at 23:00 Ceftriaxone Sodium 1 gm/ Sodium Chloride 50 ml @ 100 mls/hr Q24H IV Last administered on 12/31/16 22:54; Start 12/30/16 at 23:00 Insulin Aspart (NovoLOG) 30 units TIDAC SQ Last administered on 12/30/16 17: 33; Start 12/30/16 at 11:30 Insulin Detemir (Levemir) 95 units QHS SQ Last administered on 12/30/16 21:34 ; Start 12/30/16 at 21:00 Vitamin D (Vitamin D3) 5,000 unit DAILY PO Last administered on 01/01/17 08: 34; Start 12/30/16 at 10:00 Atorvastatin Calcium (Lipitor) 20 mg QHS PO Last administered on 12/31/16 20: 20; Start 12/30/16 at 21:00 Primidone (Mysoline) 50 mg [id number] PO Last administered on 01/01/17 08:35 ; Start 12/30/16 at 10:00 Carbidopa/Levodopa (Sinemet 25/100) 1 tab [id number] PO Last administered on 20:20; Start 12/30/16 at 12:00; Stop 01/01/17 at 05:51; Status DC Ropinirole HCl (Requip) 1 mg TID PO Last administered on 01/01/17 08:34; Start 12/30/16 at 14:00 Pantoprazole Sodium (Protonix) 40 mg DAILYAC PO Last administered on 08:33; Start 12/30/16 at 10:00 Digoxin (Lanoxin) 500 mcg 1X ONCE IV Last administered on 12/30/16 12:25; Start 12/30/16 at 12:15; Stop 12/30/16 at 12:16; Status DC Diltiazem HCl (Cardizem 24hr Cd) 120 mg DAILY PO Last administered on 08:33; Start 12/31/16 at 09:00 Metoprolol Tartrate (Lopressor) 25 mg BID PO Last administered on 01/01/17 08 :34; Start 12/30/16 at 22:00 Phytonadione (Vitamin K) 2 mg 1X ONCE SQ Last administered on 12/31/16 09:22 ; Start 12/31/16 at 09:00; Stop 12/31/16 at 09:01; Status DC Potassium Chloride (Klor-Con) 40 meq BID PO Last administered on 01/01/17 08: 34; Start 12/31/16 at 09:00; Stop 01/01/17 at 08:59; Status DC Digoxin (Lanoxin) 250 mcg 1X ONCE IV Last administered on 12/31/16 11:36; Start 12/31/16 at 11:00; Stop 12/31/16 at 11:01; Status DC Lactobacillus Rhamnosus (Culturelle) 1 cap BID PO Last administered on 08:34; Start 12/31/16 at 21:00 Potassium Chloride (Klor-Con) 40 meq 1X ONCE PO Last administered on 20:19; Start 12/31/16 at 21:00; Stop 12/31/16 at 21:01; Status DC Carbidopa/Levodopa (Sinemet 25/100) 1 tab QID PO Last administered on 08:34; Start 01/01/17 at 09:00 Active Scripts Active Metoprolol Tartrate 25 Mg Tablet 25 Mg PO BID 90 Days Reported Coumadin (Warfarin Sodium) 4 Mg Tablet 8 Mg PO DAILY Primidone 50 Mg Tablet 50 Mg PO DAILY Cartia Xt (Diltiazem Hcl) 120 Mg Cap.er.24h 120 Mg PO DAILY Atorvastatin Calcium 20 Mg Tablet 20 Mg PO QHS Omeprazole 40 Mg Capsule.dr 40 Mg PO DAILY Ropinirole Hcl 1 Mg Tablet 1 Mg PO TID Carbidopa-Levodopa 25-100 Tab (Carbidopa/Levodopa) 1 Each Tablet 25-100 Tab PO QID Invokana (Canagliflozin) 300 Mg Tablet 300 Mg PO DAILY Metformin Hcl 500 Mg Tablet 2 Tab PO BID Vitals/I & O Vital Sign - Last 24 Hours 12/31/16 12/31/16 12/31/16 12/31/16 10:10 11:10 11:36 12:08 Pulse 116 111 111 Resp 18 19 B/P (MAP) 110/72 (85) 116/77 (90) 116/77 Pulse Ox 93 93 O2 Delivery Nasal Cannula Nasal Cannula Nasal Cannula O2 Flow Rate 2.0 2.0 2.0 12/31/16 12/31/16 12/31/16 12/31/16 13:10 14:10 15:10 17:30 Temp 97.0 Pulse 91 105 92 106 Resp 18 18 22 18 B/P (MAP) 106/76 (86) 102/74 (83) 111/63 (79) 136/76 (96) Pulse Ox 95 95 91 91 O2 Delivery Nasal Cannula Nasal Cannula Nasal Cannula Nasal Cannula O2 Flow Rate 2.0 2.0 2.0 2.0 12/31/16 12/31/16 12/31/16 12/31/16 19:41 20:00 20:20 21:01 Temp 99.2 Pulse 99 99 113 Resp 22 23 B/P (MAP) 133/84 (100) 133/84 104/71 (82) Pulse Ox 94 90 O2 Delivery Nasal Cannula Room Air Nasal Cannula O2 Flow Rate 2.0 2.0 12/31/16 01/01/17 01/01/17 01/01/17 21:10 00:14 01:39 04:09 Temp 98.6 Pulse 122 124 100 95 Resp 22 19 20 16 B/P (MAP) 115/57 (76) 101/84 (90) 113/77 (89) Pulse Ox 95 92 100 96 O2 Delivery Nasal Cannula Nasal Cannula Nasal Cannula Nasal Cannula O2 Flow Rate 2.0 2.0 2.0 2.0 01/01/17 01/01/17 01/01/17 01/01/17 06:47 08:00 08:33 08:34 Temp 97.7 Pulse 95 122 122 Resp 16 B/P (MAP) 111/61 (78) 111/61 111/61 Pulse Ox 90 O2 Delivery Nasal Cannula Room Air O2 Flow Rate 2.0 Intake and Output 12/31/16 12/31/16 01/01/17 15:00 23:00 07:00 Intake Total 1450 ml 1220 ml 150 ml Output Total 1000 ml 550 ml 650 ml Balance 450 ml 670 ml -500 ml KYLE MONTANA APRN Jan 01, 2017 09:24
--- NOTE | 2017-01-01 09:59 | RAD ---
2 views of the Chest 01/01/2017 9:08 AM Indication: infiltrate Comparison: Chest radiograph, December 29, 2016 Findings: There are small bilateral pleural effusions left greater than right. There is left lower lobe consolidation concerning for pneumonia. Underlying areas of atelectasis appear to be present. No pneumothorax is identified. Right pleural effusion is very small. Possible mild underlying atelectasis or infiltrate is also seen in the right lung base. Possible mild cardiomegaly is again noted. Bony thorax is grossly intact. Impression: 1.Persistent left lower lobe consolidation, concerning for pneumonia, with underlying small pleural effusion 2. Trace right pleural effusion with underlying atelectasis or infiltrate 3. Recommend continued radiographic follow-up to ensure complete resolution
[2017-01-01] MEDS ORDERED: POTASSIUM CHLORIDE 20 MEQ TABLET.ER. PO ONE (10:00)
[2017-01-01] MEDS: DIGOXIN 125 MCG TABLET PO SCH (10:43)
[2017-01-01] MEDS ORDERED: VANCOMYCIN 2 GM in IV NORMAL SALINE 500ML 500 ML IV ONE (11:00)
[2017-01-01] MEDS: VANCOMYCIN PER PHARMACY MC PRN (11:00)
[2017-01-01] MEDS: IPRATRPIUM/ALBUTEROL 0.5/2.5MG 3 ML NEBU. NEB SCH ×2 (13:00→20:30)
--- NOTE | 2017-01-01 19:56 | CONS ---
DATE OF CONSULTATION: 12/31/2016 REFERRING PHYSICIAN: Dr. Howard. REASON FOR CONSULTATION: Recent fall, rule out syncope versus seizures. HISTORY OF PRESENT ILLNESS: This is a 71-year-old right-handed white male who was admitted through the Emergency Room after he sustained a fall at home. According to the patient, he was sitting on the couch when he tried to bend forward to pick something up, he fell to the ground hitting his head, elbows, and knee resulted in a rock fernando, but he did not lose his consciousness or any seizure-like activities. However, the patient was unable to stand up. He activate [facility] and report by EMS to Emergency Room where he was found to be hypotensive with lactic acidosis with sepsis secondary to acquired community pneumonia diagnosed by x-ray confined to the left lower lobe. The patient did have urinary incontinence and after the fall and laying on the floor because he could not make it to the bathroom; however, he did recall the event and he was not confused or disoriented. The patient was also found to have atrial fibrillation with rapid ventricular response. Currently, he denies headaches, visual disturbances, nausea, vomiting, chest pain, shortness of breath, but he did have intermittent dry cough of one-week duration prior to this admission. The patient was found to have coagulopathy disorders with hyperproteinemia secondary to recent increase in Coumadin dose. Initial nonenhanced head CT scan revealed no evidence of acute intracranial process, has cerebral bleed, but moderate generalized atrophy with chronic microvascular ischemic disease. PAST MEDICAL HISTORY: Significant for chronic atrial fibrillation with a rapid ventricular response, hypertension, hyperlipidemia, diabetes mellitus type 2, pulmonary embolism, and Parkinson's disease. PAST SURGICAL HISTORY: Significant for cholecystectomy, eye surgery, and lower back surgery. FAMILY HISTORY: He was adopted. Otherwise, noncontributory. SOCIAL HISTORY: The patient is , has 1 son. He denies smoking, alcohol drinking, or illicit drug use. CURRENT MEDICATIONS: Lipitor 20 mg daily at bedtime, Invokana 300 mg once daily, carbidopa/levodopa 25/100 tablet q.i.d., diltiazem extended release 120 mg once daily, metformin 1000 mg twice daily, metoprolol 25 mg b.i.d., omeprazole 40 mg daily, primidone 50 mg once daily, ReQuip 1 mg t.i.d., warfarin 4 mg 2 tablets daily. ALLERGIES: No known drug allergies. REVIEW OF SYSTEMS: A 10-point review of system was performed as mentioned above in the history of present illness, otherwise unremarkable. PHYSICAL EXAMINATION: GENERAL: A well-developed, well-nourished white male, not in acute distress. VITAL SIGNS: He weighs 217 pounds, blood pressure 136/76, respiratory rate 18, pulse is 106, temperature is 197, oxygen saturation 91% on 2 liters via nasal cannula. HEENT: Normocephalic, atraumatic, otherwise unremarkable. NECK: Supple. Negative for carotid bruit, lymphadenopathy, thyromegaly or JVD. LUNGS: Diminished breath sounds, but no rhonchi. CARDIOVASCULAR: Regular rhythm consistent with atrial fibrillation. Normal S1, S2. There is no S3, S4 or murmur. ABDOMEN: Soft. Bowel sounds positive. No palpable mass, organomegaly or tenderness. EXTREMITIES: Negative for cyanosis, clubbing or pitting edema, but shows fernando on the elbows and knees, left side of his head. NEUROLOGICAL EXAMINATION: MENTAL STATUS: The patient is alert and oriented x 3. Speech is fluent. There is no language dysfunction. Judgment and abstract thinking are normal. The patient denies hallucination or delusion. CRANIAL NERVES: Visual farris are full. The pupils are reactive to light and accommodation. The extraocular movements are intact. There is no nystagmus. There is no facial motor or sensory deficit. Hearing is intact bilaterally. The palate is elevated symmetrically. Sternocleidomastoid muscles are powerful bilaterally. The patient shrugs his shoulders symmetrically and protrudes his tongue in the midline without fasciculation or atrophy. MOTOR: No focal muscle bulk was seen. The tone is normal. The strength is 4/5 throughout. The patient has resting tremor of the hands. SENSORY EXAMINATION: Normal pinprick, light touch, vibratory and position senses. Deep tendon reflexes are symmetric and hypoactive with absent Achilles responses. GAIT: The patient uses a walker for ambulation. LABORATORY DATA: CBC revealed white blood cells of 9200, hemoglobin 10.9, hematocrit is 32.8, platelet count 286,000. Chemistry revealed sodium of 140, potassium 3.2, chloride 107, CO2 of 22, BUN 25, creatinine is 0.8, glucose 90, calcium is 7.8, magnesium is normal at 2.1. Liver enzymes normal. Troponin level is 0.058. NPB is high at 651. Lipid profile unremarkable with low HDL. TSH is normal as well as a lipase at 146. Coagulation revealed a PT of 90 and INR of 9.1. D-dimer is less than 0.19. Urinalysis negative for urinary tract infections and urine drug screen is negative as well. Lactic acid is 1.6. DIAGNOSTIC DATA: Nonenhanced head CT scan as described above in the history of present illness and chest x-ray revealed a left lower lobe infiltrate and possible left pleural effusion. IMPRESSION: 1. Status post fall, rule out syncope. No clinical evidence of a seizure. 2. Chronic atrial fibrillation with rapid ventricular response. 3. Hypotensive, required plenty of fluid and Levophed. 4. Multiple metabolic derangements including hypocalcemia and hypoleukemia. 5. Hyperproteinemia secondary to overdose of warfarin. 6. Resting tremor consistent with Parkinson's disease. 7. Hypertension, hyperlipidemia, and diabetes mellitus type 2. RECOMMENDATIONS: 1. Continue with the current management initiated by Dr. Howard for pneumonia and other metabolic derangements; calcium and potassium supplements. 2. Continue with current medication for Parkinson's disease. 3. Physical therapy evaluation and management. 4. Continue with Cardiology recommendation and management. The patient is neurologically stable. M Joseph GONZALEZ MD DR: MARLI/re JOB#: [id number] / [id number]
[2017-01-01] MEDS: ATORVASTATIN CALCIUM 20 MG TABLET PO SCH (20:53)
[2017-01-01] MEDS: INSULIN DETEMIR 300 UNITS/3 ML INSULN.PEN. SQ SCH (20:58)
[2017-01-01] MEDS: VANCOMYCIN 1.5 GM in IV NORMAL SALINE 500ML 500 ML IV SCH (23:13)
[2017-01-02 02:00] VITALS: BP 106/61
--- NOTE | 2017-01-02 03:56 | PN ---
DATE: 01/01/2017 CURRENT PROBLEMS: 1. Septic shock, which has resolved. 2. Left lower lobe infiltrate. 3. Type 2 diabetes. 4. Atrial fibrillation with rapid ventricular response. 5. Dehydration. 6. Hypokalemia. 7. Severe protein calorie malnutrition. 8. Supratherapeutic INR, now is 3.1. 9. Normochromic normocytic anemia. 10. Mechanical fall with left forehead abrasions. SUBJECTIVE: A 71-year-old gentleman admitted with the above problems. He actually is doing better today and continues to improve. His Cardiology is managing his heart rhythm and he is getting daily digoxin. We will have to decide whether at this point Coumadin would not be a good idea because of the falls and he is in good spirits this morning. OBJECTIVE: VITAL SIGNS: Blood pressure 111/61, pulse 122, pulse ox this morning was 90% on 2 liters and was 96% on 2 liters and 100% on 2 liters. The abrasions on his head are healing, they do have a little bit of serosanguineous type drainage. HEENT: The left eye is clear, but some of the drainage is going into the eye. Nose is patent. Throat was clear. NECK: Supple. LUNGS: Clear to auscultation. CARDIOVASCULAR: Irregular rhythm and rate with 2/6 systolic murmur. ABDOMEN: Soft, nontender. EXTREMITIES: Without edema. LABORATORY DATA: Potassium is 3.4. INR is 3.1, down from 9 yesterday. Hemoglobin 10.5, hematocrit 32.5. PLAN: We are going to plan for swing bed as soon as possible if okay with cardiology. We will continue with the antibiotics p.o. and he will definitely need some rehab and we will replace his potassium today. RUIZ CANDELARIA DO DR: ABUNDIO/re JOB#: [id number] / [id number]
[2017-01-02 05:30] VITALS: BP 100/78
[2017-01-02 06:21] LABS: BASO % 1 % (0-3); EOS # 0.1 x10^3/uL (0.0-0.7); EOS % 1 % (0-3); HEMATOCRIT 32.7 % (39.0-53.0); HEMOGLOBIN 10.8 g/dL (13.0-17.5); LYMPH % 15 % (24-48); MEAN CORPUSCULAR HEMOGLOBIN 28 pg (25-35); MEAN CORPUSCULAR HGB CONC 33 g/dL (31-37); MEAN CORPUSCULAR VOLUME 86 fL (79-100); MONO # 0.7 x10^3/uL (0.0-1.1); MONO % 11 % (0-9); NEUT # 4.7 x10^3uL (1.8-7.7); NEUT % 72 % (31-73); PLATELET COUNT 273 x10^3/uL (140-400); RED BLOOD COUNT 3.82 x10^6/uL (4.30-5.70); RED CELL DISTRIBUTION WIDTH 17.4 % (11.5-14.5); WHITE BLOOD COUNT 6.5 x10^3/uL (4.0-11.0)
[2017-01-02 06:29] LABS: ALBUMIN 2.2 g/dL (3.4-5.0); ALBUMIN/GLOBULIN RATIO 0.7 (1.0-1.7); CALCIUM 8.1 mg/dL (8.5-10.1); CREATININE 0.7 mg/dL (0.7-1.3); GFR 111.5; MAGNESIUM 1.8 mg/dL (1.8-2.4); TOTAL BILIRUBIN 0.7 mg/dL (0.2-1.0); TOTAL PROTEIN 5.4 g/dL (6.4-8.2)
[2017-01-02] MEDS: INSULIN ASPART 300 UNITS/3 ML INSULN.PEN SQ SCH ×3 (07:30→16:30)
[2017-01-02] MEDS: PRIMIDONE 50 MG TABLET PO SCH (08:18)
[2017-01-02] MEDS: PANTOPRAZOLE 40 MG TABLET. PO SCH (08:18)
[2017-01-02] MEDS: CARBIDOPA/LEVODOPA 25/100MG TABLET PO SCH ×4 (08:18→21:03)
[2017-01-02] MEDS: LACTOBACILLUS RHAMNOSUS GG 1 CAPSULE. PO SCH ×2 (08:18→21:03)
[2017-01-02] MEDS: CHOLECALCIFEROL (VITAMIN D3) 1,000 UNIT TABLET PO SCH (08:19)
[2017-01-02] MEDS: rOPINIRole 1 MG TABLET. PO SCH ×3 (08:19→21:03)
[2017-01-02] MEDS: DIGOXIN 125 MCG TABLET PO SCH (08:19)
[2017-01-02] MEDS: IPRATRPIUM/ALBUTEROL 0.5/2.5MG 3 ML NEBU. NEB SCH ×2 (10:33→21:07)
[2017-01-02 10:47] VITALS: BP 149/78
[2017-01-02] MEDS: VANCOMYCIN 1.5 GM in IV NORMAL SALINE 500ML 500 ML IV SCH (11:31)
--- NOTE | 2017-01-02 15:50 | PDOC ---
PROVIDER NOTE PROVIDER NOTE PROVIDER NOTE Cardiology follow up note: S: No acute events overnight. Continues to have a cough. Denies chest pain O: HR 120's at rest Irr irr No edema Decreased breath sounds at the bases. Labs reviewed. Impression: 1. Afib with RVR 2. Septic shock presumed secondary to PNA - resolving 3. Hypotension - resolving 4. Supratherapeutic INR with fall. Recs: 1. Check with his pharmacy to see if he can qualify for agents such as Xarelto or Eliquis. 2. Stop Cardizem due to hypotension, use Metoprolol and Dig for rate control. Would also help to avoid coumadin and dig interaction (see #1) 3. Supportive care. Thanks. Will f/u in a.EMELIA Falcon MD Jan 02, 2017 15:50
[2017-01-02 17:24] VITALS: BP 124/99
[2017-01-02 20:00] VITALS: BP 135/74
[2017-01-02] MEDS: INSULIN DETEMIR 300 UNITS/3 ML INSULN.PEN. SQ SCH (21:00)
[2017-01-02] MEDS: ATORVASTATIN CALCIUM 20 MG TABLET PO SCH (21:03)
[2017-01-02] MEDS: METOPROLOL TART IMMED RELEASE 50 MG TABLET PO SCH (21:03)
[2017-01-02 22:35] LABS: VANC TR 10.1 mcg/mL (10.0-20.0)
[2017-01-03] MEDS: VANCOMYCIN 1.5 GM in IV NORMAL SALINE 500ML 500 ML IV SCH (00:08)
[2017-01-03] MEDS: VANCOMYCIN PER PHARMACY MC PRN (00:18)
[2017-01-03 01:30] VITALS: BP 125/82
--- NOTE | 2017-01-03 05:21 | PN ---
DATE: 01/01/2017 SUBJECTIVE: The patient denies any new medical or neurological complaints. He continues to have mild resting tremor confined to the left upper extremity. He continues to have dry cough. He denies chest pain, shortness of breath or palpitations. He has not had any recurrent falls or seizure-like activities or syncopal attack. OBJECTIVE: GENERAL: Obese male, not in any acute distress. VITAL SIGNS: Blood pressure is 111/61, respiratory rate 20, pulse is 122, temperature is 98.9, and oxygen saturation is 94% on room air. HEENT: Normocephalic, atraumatic, otherwise unremarkable. NECK: Supple. Negative for carotid bruit, lymphadenopathy or thyromegaly. LUNGS: Clear to A and P. CARDIOVASCULAR: Regular rate and rhythm, normal S1, S2. ABDOMEN: Soft. Bowel sounds positive. EXTREMITIES: Negative for cyanosis, clubbing or pitting edema. NEUROLOGICAL EXAM: Mental Status: The patient is alert and oriented x 3. Speech is fluent. There is no language dysfunction. Cranial nerves are intact except for mild hearing loss. Motor examination, no resting tremor of the left upper extremity, otherwise, the strength was 4/5 throughout. The patient has atrophy of the bilateral FDI muscles. Sensory examination revealed normal pinprick and light touch senses throughout. Deep tendon reflexes were symmetric and hypoactive with absent Achilles responses. Gait: The patient uses a walker for ambulation. DIAGNOSTIC DATA: Repeat chest x-ray reveals persistent left lower lobe consolidation consistent with pneumonia. IMPRESSION: 1. Status post fall, probably secondary to syncope. 2. Left lower lobe pneumonia. 3. Parkinson disease - stable on medications. 4. Hypoproteinemia with coagulopathy with INR of 1.6. 5. Tachycardia. RECOMMENDATIONS: 1. Continue with current management initiated by Dr. Delgado/Dr. Howard. 2. Physical therapy as tolerated. M Joseph GONZALEZ MD DR: MARLI/re JOB#: [id number] / [id number]
[2017-01-03 05:30] VITALS: BP 137/89
[2017-01-03 06:46] LABS: ALBUMIN 2.1 g/dL (3.4-5.0); ALBUMIN/GLOBULIN RATIO 0.7 (1.0-1.7); CALCIUM 8.2 mg/dL (8.5-10.1); CREATININE 0.6 mg/dL (0.7-1.3); GFR 133.2; MAGNESIUM 1.6 mg/dL (1.8-2.4); POTASSIUM 3.9 mmol/L (3.5-5.1); TOTAL BILIRUBIN 0.6 mg/dL (0.2-1.0); TOTAL PROTEIN 5.2 g/dL (6.4-8.2)
--- NOTE | 2017-01-03 07:19 | PN ---
DATE: 12/29/2016 CURRENT PROBLEMS: 1. Septic shock, resolved. 2. Left lower lobe infiltrate continue. 3. Type 2 diabetes. 4. Atrial fibrillation with rapid ventricular rate. 5. Dehydration, resolved. 6. Hypokalemia. 7. Severe protein-calorie malnutrition, on nutritional supplements. 8. Supratherapeutic INR with a maximum 9, now it is 1.6. 9. Normochromic normocytic anemia. 10. Mechanical fall with left forehead abrasions. 11. Parkinson's disease. 12. Questionable aspiration. SUBJECTIVE: This is a 73-year-old male admitted with the above problems. He continues to have a persistent left lower lobe infiltrate, which is suspicious, possibly could be aspiration because of his Parkinson's disease and the speech evaluation will be done. He is getting digoxin and being seen by Cardiology. He is going to swing bed in the next day or so. He continues on IV vancomycin and ceftriaxone. OBJECTIVE: VITAL SIGNS: Blood pressure 149/78, pulse 100, respirations 18, pulse ox 96% on room air, temperature 97.6 degrees. GENERAL: A 71-year-old in no acute distress. His skin abrasions on his forehead are healing nicely with no evidence of infection. HEENT: Her eyes are clear. Nose is patent. Throat was clear. NECK: Supple, without adenopathy. LUNGS: Clear to auscultation. I do not appreciate cough today. CARDIOVASCULAR: Irregular rhythm and rate 100. ABDOMEN: Soft and nontender. EXTREMITIES: He does have some ankle edema. LABORATORY DATA: Hemoglobin 10.9 and hematocrit 32.7, white count is down to 6.5 from 12.8, albumin is 2.2. His chest x-ray done today shows persistent left lower lobe consolidation concerning for pneumonia, possibly a slight infiltrate on the right. PLAN: Continue IV antibiotics, swallow study, and appreciate Cardiology input and swing bed soon. He was also observed with physical therapy and appeared to be doing very well. RUIZ CANDELARIA DO DR: ABUNDIO/re JOB#: [id number] / [id number]
[2017-01-03] MEDS: INSULIN ASPART 300 UNITS/3 ML INSULN.PEN SQ SCH (07:30)
[2017-01-03] MEDS: IPRATRPIUM/ALBUTEROL 0.5/2.5MG 3 ML NEBU. NEB SCH (08:00)
[2017-01-03 08:18] LABS: BASO % 0 % (0-3); EOS # 0.1 x10^3/uL (0.0-0.7); EOS % 2 % (0-3); HEMATOCRIT 32.8 % (39.0-53.0); HEMOGLOBIN 10.9 g/dL (13.0-17.5); LYMPH # 0.9 x10^3/uL (1.0-4.8); LYMPH % 13 % (24-48); MEAN CORPUSCULAR HEMOGLOBIN 28 pg (25-35); MEAN CORPUSCULAR HGB CONC 33 g/dL (31-37); MEAN CORPUSCULAR VOLUME 85 fL (79-100); MONO # 0.7 x10^3/uL (0.0-1.1); MONO % 11 % (0-9); NEUT % 74 % (31-73); PLATELET COUNT 288 x10^3/uL (140-400); RED BLOOD COUNT 3.84 x10^6/uL (4.30-5.70); RED CELL DISTRIBUTION WIDTH 17.3 % (11.5-14.5); WHITE BLOOD COUNT 6.7 x10^3/uL (4.0-11.0)
[2017-01-03 08:29] VITALS: BP 142/86
[2017-01-03] MEDS ORDERED: VANCOMYCIN 1.75 GM in IV NORMAL SALINE 500ML 500 ML IV SCH (09:00)
--- NOTE | 2017-01-03 09:11 | PDOC ---
PROGRESS NOTES Diagnosis Problem Problems Medical Problems: (1) Atrial fibrillation with RVR Status: Acute (2) Closed head injury Status: Acute (3) Elevated INR Status: Acute (4) Pneumonia Status: Acute (5) Weakness Status: Acute Assessment Problems Medical Problems: (1) Atrial fibrillation with RVR Status: Acute (2) Closed head injury Status: Acute (3) Elevated INR Status: Acute (4) Pneumonia Status: Acute (5) Weakness Status: Acute 1. atrial fibrillation with RVR - Metoprolol started last pm, continue for rate control. Continue digoxin. 2. pneumonia/sepsis - per PCP 3. coagulopathy - NOAC for anticoagulation to avoid digoxin-coumadin interaction. 4. hypotension - resolved off cardizem. Continue to monitor rate control, titrate metoprolol as tolerated. NOAC for stroke prophylaxis. Plans to transfer to skilled bed today. Problems: Subjective he reports " feeling fine", no chest pain, dyspnea. No lightheadedness. Objective Vital Signs Date Time Temp Pulse Resp B/P (MAP) Pulse Ox O2 Delivery O2 Flow Rate FiO2 01/03/17 08:29 98.1 111 20 142/86 (104) 92 Room Air 01/01/17 06:47 2.0 Intake and Output 01/03/17 07:00 Intake Total 1500 ml Output Total 800 ml Balance 700 ml Intake Oral 950 ml IV Total 550 ml Output Urine Total 800 ml # Voids 3 # Bowel Movements 1 Abdomen: Normal bowel sounds, Soft, No tenderness Heart: Other (irregular rate and rhythm, no gallops, clicks or rubs) Extremities: Other (1+edema) General: Alert, Oriented X3, Cooperative, No acute distress Lungs: Other (decreased left base, o/w clear) Neuro: Normal speech, Strength at 5/5 X4 ext Psych/Mental Status: Mental status NL, Mood NL Review of Relevant I have reviewed the following items leobardo (where applicable) has been applied. Labs Laboratory Tests Test 01/01/17 11:18 01/01/17 16:50 01/01/17 20:57 01/02/17 05:10 Glucose (Fingerstick) 113 mg/dL (70-99) 115 mg/dL (70-99) 130 mg/dL (70-99) White Blood Count 6.5 x10^3/uL (4.0-11.0) Red Blood Count 3.82 x10^6/uL (4.30-5.70) Hemoglobin 10.8 g/dL (13.0-17.5) Hematocrit 32.7 % (39.0-53.0) Mean Corpuscular Volume 86 fL (79-100) Mean Corpuscular Hemoglobin 28 pg (25-35) Mean Corpuscular Hemoglobin Concent 33 g/dL (31-37) Red Cell Distribution Width 17.4 % (11.5-14.5) Platelet Count 273 x10^3/uL (140-400) Neutrophils (%) (Auto) 72 % (31-73) Lymphocytes (%) (Auto) 15 % (24-48) Monocytes (%) (Auto) 11 % (0-9) Eosinophils (%) (Auto) 1 % (0-3) Basophils (%) (Auto) 1 % (0-3) Neutrophils # (Auto) 4.7 x10^3uL (1.8-7.7) Lymphocytes # (Auto) 1.0 x10^3/uL (1.0-4.8) Monocytes # (Auto) 0.7 x10^3/uL (0.0-1.1) Eosinophils # (Auto) 0.1 x10^3/uL (0.0-0.7) Basophils # (Auto) 0.0 x10^3/uL (0.0-0.2) Prothrombin Time 16.6 SEC (9.4-11.4) Prothromb Time International Ratio 1.6 (0.9-1.1) Sodium Level 143 mmol/L (136-145) Potassium Level 4.0 mmol/L (3.5-5.1) Chloride Level 107 mmol/L (98-107) Carbon Dioxide Level 26 mmol/L (21-32) Anion Gap 10 (6-14) Blood Urea Nitrogen 11 mg/dL (8-26) Creatinine 0.7 mg/dL (0.7-1.3) Estimated GFR (Cockcroft-Gault) 111.5 BUN/Creatinine Ratio 16 (6-20) Glucose Level 103 mg/dL (70-99) Calcium Level 8.1 mg/dL (8.5-10.1) Magnesium Level 1.8 mg/dL (1.8-2.4) Total Bilirubin 0.7 mg/dL (0.2-1.0) Aspartate Amino Transf (AST/SGOT) 23 U/L (15-37) Alanine Aminotransferase (ALT/SGPT) 16 U/L (16-63) Alkaline Phosphatase 52 U/L (46-116) QV-Aei-W-Type Natriuretic Peptide 1098 pg/mL (0-124) Total Protein 5.4 g/dL (6.4-8.2) Albumin 2.2 g/dL (3.4-5.0) Albumin/Globulin Ratio 0.7 (1.0-1.7) Test 01/02/17 17:23 01/02/17 22:15 01/03/17 05:44 01/03/17 07:12 Glucose (Fingerstick) 151 mg/dL (70-99) 113 mg/dL (70-99) Vancomycin Level Trough 10.1 mcg/mL (10.0-20.0) Vancomycin Last Dose Date 01/02/17 Vancomycin Last Dose Time 1100 Prothrombin Time 14.2 SEC (9.4-11.4) Prothromb Time International Ratio 1.4 (0.9-1.1) Sodium Level 143 mmol/L (136-145) Potassium Level 3.9 mmol/L (3.5-5.1) Chloride Level 108 mmol/L (98-107) Carbon Dioxide Level 26 mmol/L (21-32) Anion Gap 9 (6-14) Blood Urea Nitrogen 10 mg/dL (8-26) Creatinine 0.6 mg/dL (0.7-1.3) Estimated GFR (Cockcroft-Gault) 133.2 BUN/Creatinine Ratio 17 (6-20) Glucose Level 124 mg/dL (70-99) Calcium Level 8.2 mg/dL (8.5-10.1) Magnesium Level 1.6 mg/dL (1.8-2.4) Total Bilirubin 0.6 mg/dL (0.2-1.0) Aspartate Amino Transf (AST/SGOT) 20 U/L (15-37) Alanine Aminotransferase (ALT/SGPT) 11 U/L (16-63) Alkaline Phosphatase 49 U/L (46-116) Total Protein 5.2 g/dL (6.4-8.2) Albumin 2.1 g/dL (3.4-5.0) Albumin/Globulin Ratio 0.7 (1.0-1.7) Test 01/03/17 08:08 White Blood Count 6.7 x10^3/uL (4.0-11.0) Red Blood Count 3.84 x10^6/uL (4.30-5.70) Hemoglobin 10.9 g/dL (13.0-17.5) Hematocrit 32.8 % (39.0-53.0) Mean Corpuscular Volume 85 fL (79-100) Mean Corpuscular Hemoglobin 28 pg (25-35) Mean Corpuscular Hemoglobin Concent 33 g/dL (31-37) Red Cell Distribution Width 17.3 % (11.5-14.5) Platelet Count 288 x10^3/uL (140-400) Neutrophils (%) (Auto) 74 % (31-73) Lymphocytes (%) (Auto) 13 % (24-48) Monocytes (%) (Auto) 11 % (0-9) Eosinophils (%) (Auto) 2 % (0-3) Basophils (%) (Auto) 0 % (0-3) Neutrophils # (Auto) 5.0 x10^3uL (1.8-7.7) Lymphocytes # (Auto) 0.9 x10^3/uL (1.0-4.8) Monocytes # (Auto) 0.7 x10^3/uL (0.0-1.1) Eosinophils # (Auto) 0.1 x10^3/uL (0.0-0.7) Basophils # (Auto) 0.0 x10^3/uL (0.0-0.2) Microbiology 12/29/16 Blood Culture - Preliminary, Resulted NO GROWTH AFTER 4 DAYS 12/30/16 Urine Culture - Final, Complete 12/30/16 Urine Culture Result 1 (MALATHI) - Final, Complete Medications Current Medications Diltiazem HCl (Cardizem) 20 mg 1X ONCE IVP Last administered on 12/29/16 22: 52; Start 12/29/16 at 22:30; Stop 12/29/16 at 22:31; Status DC Sodium Chloride 1,000 ml @ 1,000 mls/hr Q1H IV Last administered on 22:52; Start 12/29/16 at 22:30; Stop 12/29/16 at 23:29; Status DC Sodium Chloride (Normal Saline Flush) 10 ml QSHIFT PRN IV AFTER MEDS AND BLOOD DRAWS Last administered on 12/29/16 22:52; Start 12/29/16 at 22:15 Sodium Chloride 1,000 ml @ 1,000 mls/hr 1X ONCE IV Last administered on 12/29 23:45; Start 12/29/16 at 23:45; Stop 12/30/16 at 00:44; Status DC Azithromycin 500 mg/Sodium Chloride 250 ml @ 250 mls/hr 1X ONCE IV Last administered on 12/29/16 23:36; Start 12/29/16 at 23:45; Stop 12/30/16 at 00 :44; Status DC Ceftriaxone Sodium 1 gm/ Sodium Chloride 50 ml @ 100 mls/hr 1X ONCE IV Last administered on 12/29/16 23:33; Start 12/29/16 at 23:45; Stop 12/30/16 at 00 :14; Status DC Sodium Chloride 1,000 ml @ 1,000 mls/hr 1X ONCE IV ; Start 12/29/16 at 23:45 ; Stop 12/30/16 at 00:44; Status DC Sodium Chloride 250 ml @ As Directed STK-MED ONCE .ROUTE ; Start 12/29/16 at 23:30; Stop 12/29/16 at 23:31; Status DC Sodium Chloride 50 ml @ As Directed STK-MED ONCE .ROUTE ; Start 12/29/16 at 23: 30; Stop 12/29/16 at 23:31; Status DC Azithromycin (Zithromax) 500 mg STK-MED ONCE IV ; Start 12/29/16 at 23:30; Stop 12/29/16 at 23:31; Status DC Ceftriaxone Sodium (Rocephin) 1 gm STK-MED ONCE IV ; Start 12/29/16 at 23:30; Stop 12/29/16 at 23:31; Status DC Sodium Chloride 50 ml @ As Directed STK-MED ONCE .ROUTE ; Start 12/29/16 at 23: 31; Stop 12/29/16 at 23:32; Status DC Ondansetron HCl (Zofran) 4 mg PRN Q4HRS PRN IV NAUSEA/VOMITING; Start at 23:30; Stop 12/30/16 at 23:29; Status DC Acetaminophen (Tylenol) 650 mg PRN Q4HRS PRN PO FEVER; Start 12/29/16 at 23:30 ; Stop 12/30/16 at 23:29; Status DC Ondansetron HCl (Zofran Odt) 4 mg 1X ONCE PO Last administered on 12/30/16 00:15; Start 12/30/16 at 00:15; Stop 12/30/16 at 00:16; Status DC Ondansetron HCl (Zofran Odt) 4 mg STK-MED ONCE .ROUTE ; Start 12/29/16 at 23:49 ; Stop 12/29/16 at 23:50; Status DC Norepinephrine Bitartrate 8 mg/ Sodium Chloride 258 ml @ 0 mls/hr CONT PRN IV SEE I/O RECORD Last administered on 12/30/16 00:28; Start 12/30/16 at 00:30 Sodium Chloride 250 ml @ As Directed STK-MED ONCE .ROUTE ; Start 12/30/16 at 00:27; Stop 12/30/16 at 00:28; Status DC Norepinephrine Bitartrate (Levophed) 4 mg STK-MED ONCE IV ; Start 12/30/16 at 00:27; Stop 12/30/16 at 00:28; Status DC Sodium Chloride 1,000 ml @ 1,000 mls/hr Q1H IV Last administered on 02:00; Start 12/30/16 at 02:30; Stop 12/30/16 at 05:25; Status DC Sodium Chloride 500 ml @ 1,000 mls/hr PRN Q30MIN PRN IV SEE COMMENTS; Start 12/30/16 at 02:30 Sodium Chloride 1,000 ml @ 250 mls/hr Q4H IV Last administered on 12/30/16 07:30; Start 12/30/16 at 03:30; Stop 12/30/16 at 17:47; Status DC Sodium Chloride 1,000 ml @ 150 mls/hr Q6H40M IV Last administered on 06:00; Start 12/30/16 at 09:45; Stop 12/31/16 at 08:33; Status DC Azithromycin 500 mg/Sodium Chloride 250 ml @ 250 mls/hr Q24H IV Last administered on 12/31/16 23:29; Start 12/30/16 at 23:00; Stop 01/01/17 at 10 :18; Status DC Ceftriaxone Sodium 1 gm/ Sodium Chloride 50 ml @ 100 mls/hr Q24H IV Last administered on 01/02/17 23:15; Start 12/30/16 at 23:00 Insulin Aspart (NovoLOG) 30 units TIDAC SQ Last administered on 12/30/16 17: 33; Start 12/30/16 at 11:30 Insulin Detemir (Levemir) 95 units QHS SQ Last administered on 12/30/16 21:34 ; Start 12/30/16 at 21:00 Vitamin D (Vitamin D3) 5,000 unit DAILY PO Last administered on 01/02/17 08: 19; Start 12/30/16 at 10:00 Atorvastatin Calcium (Lipitor) 20 mg QHS PO Last administered on 01/02/17 21: 03; Start 12/30/16 at 21:00 Primidone (Mysoline) 50 mg [id number] PO Last administered on 01/02/17 08:18 ; Start 12/30/16 at 10:00 Carbidopa/Levodopa (Sinemet 25/100) 1 tab [id number] PO Last administered on 20:20; Start 12/30/16 at 12:00; Stop 01/01/17 at 05:51; Status DC Ropinirole HCl (Requip) 1 mg TID PO Last administered on 01/02/17 21:03; Start 12/30/16 at 14:00 Pantoprazole Sodium (Protonix) 40 mg DAILYAC PO Last administered on 08:18; Start 12/30/16 at 10:00 Digoxin (Lanoxin) 500 mcg 1X ONCE IV Last administered on 12/30/16 12:25; Start 12/30/16 at 12:15; Stop 12/30/16 at 12:16; Status DC Diltiazem HCl (Cardizem 24hr Cd) 120 mg DAILY PO Last administered on 08:18; Start 12/31/16 at 09:00; Stop 01/02/17 at 15:44; Status DC Metoprolol Tartrate (Lopressor) 25 mg BID PO Last administered on 01/01/17 08 :34; Start 12/30/16 at 22:00; Stop 01/02/17 at 15:47; Status DC Phytonadione (Vitamin K) 2 mg 1X ONCE SQ Last administered on 12/31/16 09:22 ; Start 12/31/16 at 09:00; Stop 12/31/16 at 09:01; Status DC Potassium Chloride (Klor-Con) 40 meq BID PO Last administered on 01/01/17 08: 34; Start 12/31/16 at 09:00; Stop 01/01/17 at 08:59; Status DC Digoxin (Lanoxin) 250 mcg 1X ONCE IV Last administered on 12/31/16 11:36; Start 12/31/16 at 11:00; Stop 12/31/16 at 11:01; Status DC Lactobacillus Rhamnosus (Culturelle) 1 cap BID PO Last administered on 21:03; Start 12/31/16 at 21:00 Potassium Chloride (Klor-Con) 40 meq 1X ONCE PO Last administered on 20:19; Start 12/31/16 at 21:00; Stop 12/31/16 at 21:01; Status DC Carbidopa/Levodopa (Sinemet 25/100) 1 tab QID PO Last administered on 21:03; Start 01/01/17 at 09:00 Potassium Chloride (Klor-Con) 20 meq 1X ONCE PO ; Start 01/01/17 at 10:00; Stop 01/01/17 at 10:01; Status DC Digoxin (Lanoxin) 125 mcg DAILY PO Last administered on 01/02/17 08:19; Start 01/01/17 at 10:00 Vancomycin HCl (Vanco Per Pharmacy) 1 each PRN DAILY PRN MC PER PROTOCOL Last administered on 01/03/17 00:18; Start 01/01/17 at 10:15 Vancomycin HCl 2 gm/Sodium Chloride 500 ml @ 250 mls/hr 1X ONCE IV Last administered on 01/01/17 11:30; Start 01/01/17 at 11:00; Stop 01/01/17 at 12 :59; Status DC Vancomycin HCl 1.5 gm/Sodium Chloride 500 ml @ 250 mls/hr Q12H IV Last administered on 01/03/17 00:08; Start 01/01/17 at 23:00; Stop 01/03/17 at 00 :24; Status DC Vancomycin HCl 1 each 1X ONCE MC Last administered on 01/02/17 22:30; Start 01/02/17 at 22:30; Stop 01/02/17 at 22:31; Status DC Albuterol/ Ipratropium (Duoneb) 3 ml RTBID NEB Last administered on 01/02/17 21:07; Start 01/01/17 at 13:00 Metoprolol Tartrate (Lopressor) 50 mg BID PO Last administered on 01/02/17 21 :03; Start 01/02/17 at 21:00 Vancomycin HCl 1.75 gm/Sodium Chloride 500 ml @ 250 mls/hr Q12H IV ; Start at 09:00 Vancomycin HCl 1 each 1X ONCE MC ; Start 01/04/17 at 20:30; Stop 01/04/17 at 20:31 Active Scripts Active Metoprolol Tartrate 25 Mg Tablet 25 Mg PO BID 90 Days Reported Coumadin (Warfarin Sodium) 4 Mg Tablet 8 Mg PO DAILY Primidone 50 Mg Tablet 50 Mg PO DAILY Cartia Xt (Diltiazem Hcl) 120 Mg Cap.er.24h 120 Mg PO DAILY Atorvastatin Calcium 20 Mg Tablet 20 Mg PO QHS Omeprazole 40 Mg Capsule.dr 40 Mg PO DAILY Ropinirole Hcl 1 Mg Tablet 1 Mg PO TID Carbidopa-Levodopa 25-100 Tab (Carbidopa/Levodopa) 1 Each Tablet 25-100 Tab PO QID Invokana (Canagliflozin) 300 Mg Tablet 300 Mg PO DAILY Metformin Hcl 500 Mg Tablet 2 Tab PO BID Vitals/I & O Vital Sign - Last 24 Hours 01/02/17 01/02/17 01/02/17 01/02/17 10:33 10:47 17:24 20:00 Temp 97.6 98.1 Pulse 100 115 128 Resp 18 16 24 B/P (MAP) 149/78 (101) 124/99 (107) 135/74 (94) Pulse Ox 96 96 96 93 O2 Delivery Room Air Room Air Room Air Room Air 01/02/17 01/02/17 01/03/17 01/03/17 20:00 21:03 01:30 05:30 Temp 97.9 Pulse 128 113 115 Resp 22 20 B/P (MAP) 135/74 125/82 (96) 137/89 (105) Pulse Ox 92 92 O2 Delivery Room Air Room Air Room Air 01/03/17 08:29 Temp 98.1 Pulse 111 Resp 20 B/P (MAP) 142/86 (104) Pulse Ox 92 O2 Delivery Room Air Intake and Output 01/02/17 01/02/17 01/03/17 15:00 23:00 07:00 Intake Total 350 ml 300 ml 850 ml Output Total 500 ml 300 ml Balance -150 ml 300 ml 550 ml KYLE MONTANA AP 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
[2017-01-03] MEDS ORDERED: MAGNESIUM SULFATE 2GM 50 ML IV ONE (09:45)
[2017-01-03] MEDS: PANTOPRAZOLE 40 MG TABLET. PO SCH (10:52)
[2017-01-03] MEDS: CHOLECALCIFEROL (VITAMIN D3) 1,000 UNIT TABLET PO SCH (10:52)
[2017-01-03] MEDS: rOPINIRole 1 MG TABLET. PO SCH (10:53)
[2017-01-03] MEDS: CARBIDOPA/LEVODOPA 25/100MG TABLET PO SCH (10:53)
[2017-01-03] MEDS: LACTOBACILLUS RHAMNOSUS GG 1 CAPSULE. PO SCH (10:53)
[2017-01-03] MEDS: PRIMIDONE 50 MG TABLET PO SCH (10:53)
[2017-01-03] MEDS: DIGOXIN 125 MCG TABLET PO SCH (10:53)
[2017-01-03 10:56] VITALS: BP 142/86
[2017-01-03] MEDS: METOPROLOL TART IMMED RELEASE 50 MG TABLET PO SCH (10:56)
[2017-01-03] MEDS ORDERED: IPRATRPIUM/ALBUTEROL 0.5/2.5MG 3 ML NEBU. NEB PRN (12:15)
--- NOTE | 2017-01-03 12:21 | PDOC3 ---
Discharge Summary Visit Information Date of Admission: Dec 29, 2016 Date of Discharge: Jan 03, 2017 Final Diagnosis Problems Medical Problems: (1) Atrial fibrillation with RVR Status: Acute (2) Closed head injury Status: Acute (3) Elevated INR Status: Acute (4) Pneumonia Status: Acute (5) Weakness Status: Acute CURRENT PROBLEMS: 1. Septic shock, resolved. 2. Left lower lobe infiltrate continue. 3. Type 2 diabetes. 4. Atrial fibrillation with rapid ventricular rate. 5. Dehydration, resolved. 6. Hypokalemia. 7. Severe protein-calorie malnutrition, on nutritional supplements. 8. Supratherapeutic INR with a maximum 9, now it is 1.6. 9. Normochromic normocytic anemia. 10. Mechanical fall with left forehead abrasions. 11. Parkinson's disease. 12. Questionable aspiration. Problems: Brief Hospital Course Allergies Allergies Coded Allergies Type Severity Reaction Last Updated Verified No Known Drug Allergies 07/13/14 No Vital Signs Vital Signs Date Time Temp Pulse Resp B/P (MAP) Pulse Ox O2 Delivery O2 Flow Rate FiO2 01/03/17 10:56 111 142/86 01/03/17 08:29 98.1 20 92 Room Air 01/01/17 06:47 2.0 Lab Results Laboratory Tests Test 01/01/17 16:50 01/01/17 20:57 01/02/17 05:10 01/02/17 17:23 Glucose (Fingerstick) 115 mg/dL (70-99) 130 mg/dL (70-99) 151 mg/dL (70-99) White Blood Count 6.5 x10^3/uL (4.0-11.0) Red Blood Count 3.82 x10^6/uL (4.30-5.70) Hemoglobin 10.8 g/dL (13.0-17.5) Hematocrit 32.7 % (39.0-53.0) Mean Corpuscular Volume 86 fL (79-100) Mean Corpuscular Hemoglobin 28 pg (25-35) Mean Corpuscular Hemoglobin Concent 33 g/dL (31-37) Red Cell Distribution Width 17.4 % (11.5-14.5) Platelet Count 273 x10^3/uL (140-400) Neutrophils (%) (Auto) 72 % (31-73) Lymphocytes (%) (Auto) 15 % (24-48) Monocytes (%) (Auto) 11 % (0-9) Eosinophils (%) (Auto) 1 % (0-3) Basophils (%) (Auto) 1 % (0-3) Neutrophils # (Auto) 4.7 x10^3uL (1.8-7.7) Lymphocytes # (Auto) 1.0 x10^3/uL (1.0-4.8) Monocytes # (Auto) 0.7 x10^3/uL (0.0-1.1) Eosinophils # (Auto) 0.1 x10^3/uL (0.0-0.7) Basophils # (Auto) 0.0 x10^3/uL (0.0-0.2) Prothrombin Time 16.6 SEC (9.4-11.4) Prothromb Time International Ratio 1.6 (0.9-1.1) Sodium Level 143 mmol/L (136-145) Potassium Level 4.0 mmol/L (3.5-5.1) Chloride Level 107 mmol/L (98-107) Carbon Dioxide Level 26 mmol/L (21-32) Anion Gap 10 (6-14) Blood Urea Nitrogen 11 mg/dL (8-26) Creatinine 0.7 mg/dL (0.7-1.3) Estimated GFR (Cockcroft-Gault) 111.5 BUN/Creatinine Ratio 16 (6-20) Glucose Level 103 mg/dL (70-99) Calcium Level 8.1 mg/dL (8.5-10.1) Magnesium Level 1.8 mg/dL (1.8-2.4) Total Bilirubin 0.7 mg/dL (0.2-1.0) Aspartate Amino Transf (AST/SGOT) 23 U/L (15-37) Alanine Aminotransferase (ALT/SGPT) 16 U/L (16-63) Alkaline Phosphatase 52 U/L (46-116) KV-Utk-N-Type Natriuretic Peptide 1098 pg/mL (0-124) Total Protein 5.4 g/dL (6.4-8.2) Albumin 2.2 g/dL (3.4-5.0) Albumin/Globulin Ratio 0.7 (1.0-1.7) Test 01/02/17 22:15 01/03/17 05:44 01/03/17 07:12 01/03/17 08:08 Vancomycin Level Trough 10.1 mcg/mL (10.0-20.0) Vancomycin Last Dose Date 01/02/17 Vancomycin Last Dose Time 1100 Prothrombin Time 14.2 SEC (9.4-11.4) Prothromb Time International Ratio 1.4 (0.9-1.1) Sodium Level 143 mmol/L (136-145) Potassium Level 3.9 mmol/L (3.5-5.1) Chloride Level 108 mmol/L (98-107) Carbon Dioxide Level 26 mmol/L (21-32) Anion Gap 9 (6-14) Blood Urea Nitrogen 10 mg/dL (8-26) Creatinine 0.6 mg/dL (0.7-1.3) Estimated GFR (Cockcroft-Gault) 133.2 BUN/Creatinine Ratio 17 (6-20) Glucose Level 124 mg/dL (70-99) Calcium Level 8.2 mg/dL (8.5-10.1) Magnesium Level 1.6 mg/dL (1.8-2.4) Total Bilirubin 0.6 mg/dL (0.2-1.0) Aspartate Amino Transf (AST/SGOT) 20 U/L (15-37) Alanine Aminotransferase (ALT/SGPT) 11 U/L (16-63) Alkaline Phosphatase 49 U/L (46-116) Total Protein 5.2 g/dL (6.4-8.2) Albumin 2.1 g/dL (3.4-5.0) Albumin/Globulin Ratio 0.7 (1.0-1.7) Glucose (Fingerstick) 113 mg/dL (70-99) White Blood Count 6.7 x10^3/uL (4.0-11.0) Red Blood Count 3.84 x10^6/uL (4.30-5.70) Hemoglobin 10.9 g/dL (13.0-17.5) Hematocrit 32.8 % (39.0-53.0) Mean Corpuscular Volume 85 fL (79-100) Mean Corpuscular Hemoglobin 28 pg (25-35) Mean Corpuscular Hemoglobin Concent 33 g/dL (31-37) Red Cell Distribution Width 17.3 % (11.5-14.5) Platelet Count 288 x10^3/uL (140-400) Neutrophils (%) (Auto) 74 % (31-73) Lymphocytes (%) (Auto) 13 % (24-48) Monocytes (%) (Auto) 11 % (0-9) Eosinophils (%) (Auto) 2 % (0-3) Basophils (%) (Auto) 0 % (0-3) Neutrophils # (Auto) 5.0 x10^3uL (1.8-7.7) Lymphocytes # (Auto) 0.9 x10^3/uL (1.0-4.8) Monocytes # (Auto) 0.7 x10^3/uL (0.0-1.1) Eosinophils # (Auto) 0.1 x10^3/uL (0.0-0.7) Basophils # (Auto) 0.0 x10^3/uL (0.0-0.2) Brief Hospital Course Mr. Perkins is a 71 old [sex] who presented with [ ] is a 71-year-old male patient who was brought to the Emergency Room after a mechanical fall for generalized weakness. The patient was recently seen here and was admitted to the hospital with atrial fibrillation with RVR, generalized weakness. On the day of admission while attempting to stand on an overhead light, the patient fell hitting his head on the ground, creating rug fernando to each of his knees and elbows bilaterally. The patient denied any headache, focal neurological weakness, but he is generally weak with a resting tremor. After he fell, he had urinary incontinence because he said he did not make it to the restroom. He denies any seizure activity or loss of consciousness. He denied any tongue biting. He apparently laid on the floor for about an hour before he was able to activate his [email or web address] and was brought to the Emergency Room where he was extensively investigated and was found to be in atrial fibrillation with RVR. He was also found to be septic secondary to pneumonia, although seizure disorder might have also contributed to his marked lactic acidosis and urinary incontinence. His INR was prolonged and he was hypotensive, he required almost 4 liters of fluid and Levophed to maintain his mean arterial pressure above 65. When I saw him, he was started also on IV antibiotic for community-acquired pneumonia in the form of Rocephin and Zithromax. his metoprolol and Diltiazem WERE INITALLY HELDbecause his blood pressure was low. THESE HAVE BEEN RESUMED. NICHOLE HAD A INR OF 9 AND HIS COUMADIN WAS HELD AND HE WAS GIVEN VITAMINK. GILBERTO TO FALL RISK HE IS NOT A GOOD CANDIDATE FOR COUMADIN. hE WAS TRANSFERRED TO [facility] FOR PT, OT AND STREGTHENING. MEDICATIONS WERE RECONCILED. Discharge Information Condition at Discharge: Improved Dischare Medications Current Medications Diltiazem HCl (Cardizem) 20 mg 1X ONCE IVP Last administered on 12/29/16 22: 52; Start 12/29/16 at 22:30; Stop 12/29/16 at 22:31; Status DC Sodium Chloride 1,000 ml @ 1,000 mls/hr Q1H IV Last administered on 22:52; Start 12/29/16 at 22:30; Stop 12/29/16 at 23:29; Status DC Sodium Chloride (Normal Saline Flush) 10 ml QSHIFT PRN IV AFTER MEDS AND BLOOD DRAWS Last administered on 12/29/16 22:52; Start 12/29/16 at 22:15 Sodium Chloride 1,000 ml @ 1,000 mls/hr 1X ONCE IV Last administered on 12/29 23:45; Start 12/29/16 at 23:45; Stop 12/30/16 at 00:44; Status DC Azithromycin 500 mg/Sodium Chloride 250 ml @ 250 mls/hr 1X ONCE IV Last administered on 12/29/16 23:36; Start 12/29/16 at 23:45; Stop 12/30/16 at 00 :44; Status DC Ceftriaxone Sodium 1 gm/ Sodium Chloride 50 ml @ 100 mls/hr 1X ONCE IV Last administered on 12/29/16 23:33; Start 12/29/16 at 23:45; Stop 12/30/16 at 00 :14; Status DC Sodium Chloride 1,000 ml @ 1,000 mls/hr 1X ONCE IV ; Start 12/29/16 at 23:45 ; Stop 12/30/16 at 00:44; Status DC Sodium Chloride 250 ml @ As Directed STK-MED ONCE .ROUTE ; Start 12/29/16 at 23:30; Stop 12/29/16 at 23:31; Status DC Sodium Chloride 50 ml @ As Directed STK-MED ONCE .ROUTE ; Start 12/29/16 at 23: 30; Stop 12/29/16 at 23:31; Status DC Azithromycin (Zithromax) 500 mg STK-MED ONCE IV ; Start 12/29/16 at 23:30; Stop 12/29/16 at 23:31; Status DC Ceftriaxone Sodium (Rocephin) 1 gm STK-MED ONCE IV ; Start 12/29/16 at 23:30; Stop 12/29/16 at 23:31; Status DC Sodium Chloride 50 ml @ As Directed STK-MED ONCE .ROUTE ; Start 12/29/16 at 23: 31; Stop 12/29/16 at 23:32; Status DC Ondansetron HCl (Zofran) 4 mg PRN Q4HRS PRN IV NAUSEA/VOMITING; Start at 23:30; Stop 12/30/16 at 23:29; Status DC Acetaminophen (Tylenol) 650 mg PRN Q4HRS PRN PO FEVER; Start 12/29/16 at 23:30 ; Stop 12/30/16 at 23:29; Status DC Ondansetron HCl (Zofran Odt) 4 mg 1X ONCE PO Last administered on 12/30/16 00:15; Start 12/30/16 at 00:15; Stop 12/30/16 at 00:16; Status DC Ondansetron HCl (Zofran Odt) 4 mg STK-MED ONCE .ROUTE ; Start 12/29/16 at 23:49 ; Stop 12/29/16 at 23:50; Status DC Norepinephrine Bitartrate 8 mg/ Sodium Chloride 258 ml @ 0 mls/hr CONT PRN IV SEE I/O RECORD Last administered on 12/30/16 00:28; Start 12/30/16 at 00:30 Sodium Chloride 250 ml @ As Directed STK-MED ONCE .ROUTE ; Start 12/30/16 at 00:27; Stop 12/30/16 at 00:28; Status DC Norepinephrine Bitartrate (Levophed) 4 mg STK-MED ONCE IV ; Start 12/30/16 at 00:27; Stop 12/30/16 at 00:28; Status DC Sodium Chloride 1,000 ml @ 1,000 mls/hr Q1H IV Last administered on 02:00; Start 12/30/16 at 02:30; Stop 12/30/16 at 05:25; Status DC Sodium Chloride 500 ml @ 1,000 mls/hr PRN Q30MIN PRN IV SEE COMMENTS; Start 12/30/16 at 02:30 Sodium Chloride 1,000 ml @ 250 mls/hr Q4H IV Last administered on 12/30/16 07:30; Start 12/30/16 at 03:30; Stop 12/30/16 at 17:47; Status DC Sodium Chloride 1,000 ml @ 150 mls/hr Q6H40M IV Last administered on 06:00; Start 12/30/16 at 09:45; Stop 12/31/16 at 08:33; Status DC Azithromycin 500 mg/Sodium Chloride 250 ml @ 250 mls/hr Q24H IV Last administered on 12/31/16 23:29; Start 12/30/16 at 23:00; Stop 01/01/17 at 10 :18; Status DC Ceftriaxone Sodium 1 gm/ Sodium Chloride 50 ml @ 100 mls/hr Q24H IV Last administered on 01/02/17 23:15; Start 12/30/16 at 23:00 Insulin Aspart (NovoLOG) 30 units TIDAC SQ Last administered on 12/30/16 17: 33; Start 12/30/16 at 11:30 Insulin Detemir (Levemir) 95 units QHS SQ Last administered on 12/30/16 21:34 ; Start 12/30/16 at 21:00 Vitamin D (Vitamin D3) 5,000 unit DAILY PO Last administered on 01/03/17 10: 52; Start 12/30/16 at 10:00 Atorvastatin Calcium (Lipitor) 20 mg QHS PO Last administered on 01/02/17 21: 03; Start 12/30/16 at 21:00 Primidone (Mysoline) 50 mg [id number] PO Last administered on 01/03/17 10:53 ; Start 12/30/16 at 10:00 Carbidopa/Levodopa (Sinemet 25/100) 1 tab [id number] PO Last administered on 20:20; Start 12/30/16 at 12:00; Stop 01/01/17 at 05:51; Status DC Ropinirole HCl (Requip) 1 mg TID PO Last administered on 01/03/17 10:53; Start 12/30/16 at 14:00 Pantoprazole Sodium (Protonix) 40 mg DAILYAC PO Last administered on 10:52; Start 12/30/16 at 10:00 Digoxin (Lanoxin) 500 mcg 1X ONCE IV Last administered on 12/30/16 12:25; Start 12/30/16 at 12:15; Stop 12/30/16 at 12:16; Status DC Diltiazem HCl (Cardizem 24hr Cd) 120 mg DAILY PO Last administered on 08:18; Start 12/31/16 at 09:00; Stop 01/02/17 at 15:44; Status DC Metoprolol Tartrate (Lopressor) 25 mg BID PO Last administered on 01/01/17 08 :34; Start 12/30/16 at 22:00; Stop 01/02/17 at 15:47; Status DC Phytonadione (Vitamin K) 2 mg 1X ONCE SQ Last administered on 12/31/16 09:22 ; Start 12/31/16 at 09:00; Stop 12/31/16 at 09:01; Status DC Potassium Chloride (Klor-Con) 40 meq BID PO Last administered on 01/01/17 08: 34; Start 12/31/16 at 09:00; Stop 01/01/17 at 08:59; Status DC Digoxin (Lanoxin) 250 mcg 1X ONCE IV Last administered on 12/31/16 11:36; Start 12/31/16 at 11:00; Stop 12/31/16 at 11:01; Status DC Lactobacillus Rhamnosus (Culturelle) 1 cap BID PO Last administered on 10:53; Start 12/31/16 at 21:00 Potassium Chloride (Klor-Con) 40 meq 1X ONCE PO Last administered on 20:19; Start 12/31/16 at 21:00; Stop 12/31/16 at 21:01; Status DC Carbidopa/Levodopa (Sinemet 25/100) 1 tab QID PO Last administered on 10:53; Start 01/01/17 at 09:00 Potassium Chloride (Klor-Con) 20 meq 1X ONCE PO ; Start 01/01/17 at 10:00; Stop 01/01/17 at 10:01; Status DC Digoxin (Lanoxin) 125 mcg DAILY PO Last administered on 01/03/17 10:53; Start 01/01/17 at 10:00 Vancomycin HCl (Vanco Per Pharmacy) 1 each PRN DAILY PRN MC PER PROTOCOL Last administered on 01/03/17 00:18; Start 01/01/17 at 10:15 Vancomycin HCl 2 gm/Sodium Chloride 500 ml @ 250 mls/hr 1X ONCE IV Last administered on 01/01/17 11:30; Start 01/01/17 at 11:00; Stop 01/01/17 at 12 :59; Status DC Vancomycin HCl 1.5 gm/Sodium Chloride 500 ml @ 250 mls/hr Q12H IV Last administered on 01/03/17 00:08; Start 01/01/17 at 23:00; Stop 01/03/17 at 00 :24; Status DC Vancomycin HCl 1 each 1X ONCE MC Last administered on 01/02/17 22:30; Start 01/02/17 at 22:30; Stop 01/02/17 at 22:31; Status DC Albuterol/ Ipratropium (Duoneb) 3 ml RTBID NEB Last administered on 01/02/17 21:07; Start 01/01/17 at 13:00 Metoprolol Tartrate (Lopressor) 50 mg BID PO Last administered on 01/03/17 10 :56; Start 01/02/17 at 21:00 Vancomycin HCl 1.75 gm/Sodium Chloride 500 ml @ 250 mls/hr Q12H IV Last administered on 01/03/17 10:58; Start 01/03/17 at 09:00 Vancomycin HCl 1 each 1X ONCE MC ; Start 01/04/17 at 20:30; Stop 01/04/17 at 20:31 Magnesium Sulfate 50 ml @ 25 mls/hr 1X ONCE IV Last administered on 10:53; Start 01/03/17 at 09:45; Stop 01/03/17 at 11:44; Status DC Active Scripts Active Metoprolol Tartrate 25 Mg Tablet 25 Mg PO BID 90 Days Reported Coumadin (Warfarin Sodium) 4 Mg Tablet 8 Mg PO DAILY Primidone 50 Mg Tablet 50 Mg PO DAILY Cartia Xt (Diltiazem Hcl) 120 Mg Cap.er.24h 120 Mg PO DAILY Atorvastatin Calcium 20 Mg Tablet 20 Mg PO QHS Omeprazole 40 Mg Capsule.dr 40 Mg PO DAILY Ropinirole Hcl 1 Mg Tablet 1 Mg PO TID Carbidopa-Levodopa 25-100 Tab (Carbidopa/Levodopa) 1 Each Tablet 25-100 Tab PO QID Invokana (Canagliflozin) 300 Mg Tablet 300 Mg PO DAILY Metformin Hcl 500 Mg Tablet 2 Tab PO BID Patient Instructions Patient Instuctions DC TO SWING BED. RUIZ CANDELARIA DO Jan 03, 2017 12:21
[2017-01-03] MEDS ORDERED: CHOL500016 PO (12:24)
[2017-01-03] MEDS ORDERED: INSU100I17 SQ (12:24)
[2017-01-03] MEDS ORDERED: INSU100V13 SQ (12:24)
[2017-01-03] MEDS ORDERED: DIGO125T PO (12:24)
[2017-01-03] MEDS ORDERED: LACT1CAP19 PO (12:24)
--- NOTE | 2017-01-03 12:24 | RAD ---
Video dysphasia study, 01/03/2017: History: Dysphagia, swallowing difficulty The swallowing mechanism was examined fluoroscopically in the lateral projection while the patient ingested a variety of food materials mixed with barium. 2.3 minutes of fluoroscopy time was utilized. 6 dynamic fluoroscopic sequences were recorded by a member of the speech Department. The patient demonstrated intermittent piecemeal swallowing. The pharyngeal peristalsis was good with normal passage of the majority of the barium bolus through the cervical esophagus. A tiny Zenker's diverticulum is noted. There was no significant laryngeal penetration or aspiration with the thin materials, thicker materials or barium coated solids. IMPRESSION: 1. No evidence of aspiration. 2. Tiny Zenker's diverticulum.
[2017-01-03] MEDS ORDERED: ALBUTEROL SULFATE 2.5 MG/3 ML NEBU. NEB PRN (12:45)
[2017-01-03] MEDS ORDERED: IPRA3AMP NEB (13:40)
[2017-01-03] MEDS ORDERED: METO50TA2 PO (13:40)
--- NOTE | 2017-01-03 23:39 | PN ---
DATE: 01/03/2017 SUBJECTIVE: The patient continues to have intermittent dry cough. He denies chest pain, shortness of breath or palpitation. The patient continues to have very mild resting tremor of the hands, more prominent on the left side. OBJECTIVE: GENERAL: Moderately obese white male, not in acute distress. He weighs 231 pounds. VITAL SIGNS: Blood pressure 142/86, respiratory rate 20, pulse is 111, temperature 98.1, oxygen saturation 92% on room air. HEENT: Normocephalic, atraumatic, otherwise unremarkable. NECK: Supple. Negative for carotid bruit, lymphadenopathy or thyromegaly. LUNGS: Clear to A and P with diminished breath sounds, mainly over the left lower lobe. CARDIOVASCULAR: Regular rhythm, normal S1, S2. ABDOMEN: Soft. Bowel sounds positive. EXTREMITIES: Negative for cyanosis, clubbing or pitting edema. NEUROLOGICAL EXAM: Mental Status: The patient has normal mental status and intact cranial nerves. Motor examination revealed mild resting tremor confined to the distal upper extremities, more prominent on the left side. Sensory examination revealed normal pinprick, light touch, vibratory and position senses. Deep tendon reflexes were symmetric and active without pathologic responses. Gait not tested. LABORATORY DATA: CBC revealed white blood cells of 6.7 thousand, hemoglobin 10.9, hematocrit 32.8, platelet count 288,000. Chemistry revealed sodium of 143, potassium 3.9, chloride 108, CO2 of 26, BUN 10, creatinine 0.6, glucose 124, calcium 8.2. PT 14.2 and INR 1.4. IMPRESSION: 1. Status post fall, probably due to a syncope. 2. Parkinson disease with resting tremor. 3. Left lower lobe pneumonia. 4. Tachycardia, chronic atrial fibrillation. RECOMMENDATIONS: 1. Continue with current management as initiated by Dr. Delgado. 2. Continue with Cardiology recommendations . The patient is neurologically stable. M Joseph GONZALEZ MD DR: MARLI/re JOB#: [id number] / [id number]
== END 2017-01-03 12:57 | disposition swing bed (61) | DRG 871 ==
LOC: ER 21:50 → ICU 23:27
PROVIDERS: ADMIT Internal Medicine; ATTEND Internal Medicine
DX: A41.9 Sepsis, unspecified organism (principal); E43 Unspecified severe protein-calorie malnutrition; R65.21 Severe sepsis with septic shock; D68.9 Coagulation defect, unspecified; J18.1 Lobar pneumonia, unspecified organism; E87.2 Acidosis; E77.8 Other disorders of glycoprotein metabolism; G20 Parkinson's disease; I48.2 Chronic atrial fibrillation; T45.511A Poisoning by anticoagulants, accidental (unintentional), initial encounter; D64.9 Anemia, unspecified; E83.51 Hypocalcemia; E11.9 Type 2 diabetes mellitus without complications; W18.39XA Other fall on same level, initial encounter; Z68.30 Body mass index [BMI] 30.0-30.9, adult; E78.5 Hyperlipidemia, unspecified; E86.0 Dehydration; E87.6 Hypokalemia; I10 Essential (primary) hypertension; G40.909 Epilepsy, unspecified, not intractable, without status epilepticus; R32 Unspecified urinary incontinence; S00.81XA Abrasion of other part of head, initial encounter; Z79.01 Long term (current) use of anticoagulants; Z79.4 Long term (current) use of insulin; Z79.899 Other long term (current) drug therapy; Z86.711 Personal history of pulmonary embolism; Z91.81 History of falling; Y93.89 Activity, other specified; Y92.098 Other place in other non-institutional residence as the place of occurrence of the external cause; Y99.8 Other external cause status; Z90.49 Acquired absence of other specified parts of digestive tract
CPT/HCPCS: 36415; 51702; 70450; 71010; 71020; 74230; 80048; 80053; 80061; 80076; 80202; 81001; 82553; 82947; 83605; 83615; 83735; 83880; 84443; 84484; 85025; 85027; 85610; 85730; 87040; 87086; 87641; 93005; 94640; 96365; 96368; 96375; J0456; J0696; J1160; J1815; J3370; J3430; J3475; J3490; J7040; J7050; J7620; Q0162; 92611; 97110; 97116; 97530; 99291-25; J7030

== ENCOUNTER 2017-01-02 08:51 | Inpatient (IN) | payer MEDICARE, OTHER ==
[~2017-01-02] VITALS: Ht 185.4 cm; Wt 100.5 kg
[~2017-01-02 08:51] MED LIST changes: +WARF4TAB68 PO
--- NOTE | 2017-01-03 03:00 | PN ---
DATE: 01/02/2017 SUBJECTIVE: The patient denies any new medical neurological complaints. He continues to have dry cough. He denies chest pain, shortness of breath, or palpitations. He continues to have mild resting tremor, confined to the left upper extremity. OBJECTIVE: GENERAL: Obese male, not in acute distress. VITAL SIGNS: Blood pressure ____, respiratory rate 22, pulse is 108, temperature 97.7, oxygen saturation 95% on room air. HEENT: Normocephalic, atraumatic, otherwise unremarkable. NECK: Supple. Negative for carotid bruit, lymphadenopathy, or thyromegaly. LUNGS: Clear to A and P. CARDIOVASCULAR: Regular rhythm, normal S1, S2. There is no S3, S4, or murmur. ABDOMEN: Soft. Bowel sounds positive. EXTREMITIES: Negative for cyanosis, clubbing, or edema. NEUROLOGICAL: Mental Status: The patient is alert and oriented x 3. Speech is fluent. There is no language dysfunction. Cranial nerves are intact. 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 Sensory examination revealed normal pinprick, light touch, vibratory, and position senses. Deep tendon reflexes were symmetric and hypoactive with absent Achilles responses. Gait not tested. LABORATORY DATA: INR is 1.6, PT 16.6. CBC revealed ____ blood cells of 6.5, hemoglobin 10.8, hematocrit 32.7, platelet count 273,000. Chemistry reveals sodium of 143, potassium 4, chloride 107, CO2 26, BUN 11, creatinine 0.7, glucose 103, and calcium 8.1. IMPRESSION: 1. Status post fall, rule out syncopal attack. 2. Left lower lobe pneumonia. 3. Multiple medical problems include Parkinson disease, hypertension, hyperlipidemia, and diabetes mellitus type 2. RECOMMENDATIONS: 1. Continue with current management, initiated by Dr. Delgado. 2. Physical therapy as tolerated. M Joseph GONZALEZ MD DR: MARLI/re JOB#: [id number] / [id number]
[2017-01-03] MEDS ORDERED: INSU100I17 SQ (12:24)
[2017-01-03] MEDS ORDERED: CHOL500016 PO (12:24)
[2017-01-03] MEDS ORDERED: LACT1CAP19 PO (12:24)
[2017-01-03] MEDS ORDERED: INSU100V13 SQ (12:24)
[2017-01-03] MEDS ORDERED: DIGO125T PO (12:24)
[2017-01-03] MEDS ORDERED: METO50TA2 PO (13:40)
[2017-01-03] MEDS ORDERED: IPRA3AMP NEB (13:40)
[2017-01-03] MEDS ORDERED: IPRATRPIUM/ALBUTEROL 0.5/2.5MG 3 ML NEBU. NEB PRN (16:30)
[2017-01-03] MEDS: INSULIN ASPART 300 UNITS/3 ML INSULN.PEN SQ SCH (16:30)
[2017-01-03] MEDS: CARBIDOPA/LEVODOPA 25/100MG TABLET PO SCH ×2 (17:00→20:57)
[2017-01-03] MEDS ORDERED: ALBUTEROL SULFATE 2.5 MG/3 ML NEBU. NEB PRN (17:00)
[2017-01-03 18:22] VITALS: BP 119/86
[2017-01-03] MEDS: ATORVASTATIN CALCIUM 20 MG TABLET PO SCH (20:57)
[2017-01-03] MEDS: LACTOBACILLUS RHAMNOSUS GG 1 CAPSULE. PO SCH (20:57)
[2017-01-03] MEDS: rOPINIRole 1 MG TABLET. PO SCH (20:58)
[2017-01-03] MEDS: APIXABAN 5 MG TABLET. PO SCH (20:58)
[2017-01-03] MEDS: METOPROLOL TART IMMED RELEASE 50 MG TABLET PO SCH (20:58)
[2017-01-03] MEDS ORDERED: INSULIN DETEMIR 300 UNITS/3 ML INSULN.PEN. SQ SCH (21:00)
[2017-01-04 05:45] VITALS: BP 111/77
[2017-01-04] MEDS: PANTOPRAZOLE 40 MG TABLET. PO SCH (06:26)
[2017-01-04] MEDS: CHOLECALCIFEROL (VITAMIN D3) 1,000 UNIT TABLET PO SCH (08:45)
[2017-01-04] MEDS: DIGOXIN 125 MCG TABLET PO SCH (08:46)
[2017-01-04] MEDS: LACTOBACILLUS RHAMNOSUS GG 1 CAPSULE. PO SCH ×2 (08:46→19:58)
[2017-01-04] MEDS: APIXABAN 5 MG TABLET. PO SCH ×2 (08:46→20:00)
[2017-01-04] MEDS: CARBIDOPA/LEVODOPA 25/100MG TABLET PO SCH ×4 (08:46→20:00)
[2017-01-04] MEDS: METOPROLOL TART IMMED RELEASE 50 MG TABLET PO SCH ×2 (08:47→19:59)
[2017-01-04] MEDS: PRIMIDONE 50 MG TABLET PO SCH (08:48)
[2017-01-04] MEDS: rOPINIRole 1 MG TABLET. PO SCH ×3 (08:48→19:59)
[2017-01-04] MEDS: INSULIN ASPART 300 UNITS/3 ML INSULN.PEN SQ SCH ×4 (08:51→20:12)
[2017-01-04] MEDS: DOXYCYCLINE HYCLATE 100 MG TABLET PO SCH ×2 (14:08→20:00)
[2017-01-04] MEDS ORDERED: DEXTROSE 50% 25 GM / 50ML DISP.SYRIN. IV PRN (17:00)
[2017-01-04 19:58] VITALS: BP 135/73
[2017-01-04] MEDS: ATORVASTATIN CALCIUM 20 MG TABLET PO SCH (19:58)
[2017-01-04] MEDS: INSULIN DETEMIR 300 UNITS/3 ML INSULN.PEN. SQ SCH (20:12)
[2017-01-05 05:52] VITALS: BP 123/83
[2017-01-05 06:29] LABS: BASO % 0 % (0-3); EOS # 0.2 x10^3/uL (0.0-0.7); EOS % 2 % (0-3); HEMATOCRIT 32.6 % (39.0-53.0); LYMPH % 15 % (24-48); MEAN CORPUSCULAR HEMOGLOBIN 29 pg (25-35); MEAN CORPUSCULAR HGB CONC 34 g/dL (31-37); MEAN CORPUSCULAR VOLUME 85 fL (79-100); MONO # 0.8 x10^3/uL (0.0-1.1); MONO % 11 % (0-9); NEUT # 4.9 x10^3uL (1.8-7.7); NEUT % 71 % (31-73); PLATELET COUNT 256 x10^3/uL (140-400); RED BLOOD COUNT 3.85 x10^6/uL (4.30-5.70); RED CELL DISTRIBUTION WIDTH 17.3 % (11.5-14.5); WHITE BLOOD COUNT 6.9 x10^3/uL (4.0-11.0)
[2017-01-05 06:44] LABS: ALBUMIN/GLOBULIN RATIO 0.5 (1.0-1.7); CALCIUM 8.4 mg/dL (8.5-10.1); CREATININE 0.6 mg/dL (0.7-1.3); GFR 133.2; MAGNESIUM 1.5 mg/dL (1.8-2.4); POTASSIUM 3.6 mmol/L (3.5-5.1); TOTAL BILIRUBIN 0.6 mg/dL (0.2-1.0); TOTAL PROTEIN 5.8 g/dL (6.4-8.2)
[2017-01-05] MEDS: INSULIN ASPART 300 UNITS/3 ML INSULN.PEN SQ SCH ×4 (07:30→20:32)
[2017-01-05] MEDS: DOXYCYCLINE HYCLATE 100 MG TABLET PO SCH ×2 (08:31→20:32)
[2017-01-05] MEDS: CHOLECALCIFEROL (VITAMIN D3) 1,000 UNIT TABLET PO SCH (08:31)
[2017-01-05] MEDS: APIXABAN 5 MG TABLET. PO SCH ×2 (08:32→20:32)
[2017-01-05] MEDS: CARBIDOPA/LEVODOPA 25/100MG TABLET PO SCH ×4 (08:32→20:32)
[2017-01-05] MEDS: METOPROLOL TART IMMED RELEASE 50 MG TABLET PO SCH ×2 (08:32→20:32)
[2017-01-05] MEDS: LACTOBACILLUS RHAMNOSUS GG 1 CAPSULE. PO SCH ×2 (08:32→20:32)
[2017-01-05] MEDS: DIGOXIN 125 MCG TABLET PO SCH (08:32)
[2017-01-05] MEDS: PANTOPRAZOLE 40 MG TABLET. PO SCH (08:32)
[2017-01-05] MEDS: PRIMIDONE 50 MG TABLET PO SCH (08:33)
[2017-01-05] MEDS: rOPINIRole 1 MG TABLET. PO SCH ×3 (08:33→20:32)
--- NOTE | 2017-01-05 09:08 | RAD ---
PA AND LATERAL CHEST RADIOGRAPH Clinical Indication: PNEUMONIA. Comparison: Two-view chest 01/01/2017. Findings: Stable cardiomegaly. Tortuous thoracic aorta. Unchanged small left greater than right pleural effusions. No pneumothorax. Mild bibasilar airspace disease. Left infrahilar air bronchograms are less apparent. IMPRESSION: 1. Unchanged small bilateral pleural effusions. 2. Bibasilar airspace disease, mildly improved on the left.
[2017-01-05] MEDS: ATORVASTATIN CALCIUM 20 MG TABLET PO SCH (20:32)
[2017-01-05] MEDS: INSULIN DETEMIR 300 UNITS/3 ML INSULN.PEN. SQ SCH (20:34)
[2017-01-05] MEDS: ACETAMINOPHEN 500 MG TABLET PO PRN (22:02)
[2017-01-06 05:50] VITALS: BP 137/74
[2017-01-06] MEDS: INSULIN ASPART 300 UNITS/3 ML INSULN.PEN SQ SCH ×4 (07:30→21:00)
[2017-01-06] MEDS: DOXYCYCLINE HYCLATE 100 MG TABLET PO SCH ×2 (08:54→21:44)
[2017-01-06] MEDS: CHOLECALCIFEROL (VITAMIN D3) 1,000 UNIT TABLET PO SCH (08:54)
[2017-01-06] MEDS: METOPROLOL TART IMMED RELEASE 50 MG TABLET PO SCH ×2 (08:54→21:44)
[2017-01-06] MEDS: PANTOPRAZOLE 40 MG TABLET. PO SCH (08:54)
[2017-01-06] MEDS: CARBIDOPA/LEVODOPA 25/100MG TABLET PO SCH ×4 (08:54→21:44)
[2017-01-06] MEDS: APIXABAN 5 MG TABLET. PO SCH ×2 (08:55→21:44)
[2017-01-06] MEDS: DIGOXIN 125 MCG TABLET PO SCH (08:55)
[2017-01-06] MEDS: LACTOBACILLUS RHAMNOSUS GG 1 CAPSULE. PO SCH ×2 (08:55→21:44)
[2017-01-06] MEDS: PRIMIDONE 50 MG TABLET PO SCH (08:56)
[2017-01-06] MEDS: rOPINIRole 1 MG TABLET. PO SCH ×3 (08:57→21:45)
--- NOTE | 2017-01-06 13:54 | HP ---
ADMIT DATE: 01/03/2017 SWING BED HISTORY AND PHYSICAL This is a late dictation. The patient was admitted to swing bed on 01/03/2017 and was seen on 01/03/2017. REASON FOR ADMISSION TO SWING BED: Weakness and further need of PT and OT. HISTORY OF PRESENT ILLNESS: This is a very pleasant 71-year-old gentleman with Parkinson disease who had a fall at home and sustained a contusion to his forehead with abrasions. He was also found to be in AFib with RVR and had a left lower lobe infiltrate and a little in septic shock as well after being on the floor for several hours while he was hospitalized in the ICU at [facility]. He did also have an INR of 9. He was treated for all of these conditions and deemed appropriate for swing bed. ALLERGIES: None. CURRENT MEDICATIONS: Available on the MAR. Other information regarding his condition are available on the history and physical and discharge summary. OBJECTIVE: VITAL SIGNS: Blood pressure 137/74, pulse 87, respirations 16, pulse ox 97% on room air, temperature 97.5, height 72 inches, weight 230.37 pounds. GENERAL: A pleasant 71-year-old in no acute distress. The contusions on his forehead and abrasions are healing. HEENT: His eyes were clear. His nose was patent. Throat was clear. NECK: Supple. LUNGS: Clear. CARDIOVASCULAR: Irregular rhythm and rate. ABDOMEN: Soft, nontender. EXTREMITIES: With some ankle edema. LABORATORY DATA: Blood sugars are still acceptable. CBC: Hemoglobin 11.0, hematocrit 32.6. PLAN: PT, OT. Monitor sugars. RUIZ CANDELARIA DO DR: ABUNDIO/re JOB#: [id number] / [id number]
[2017-01-06 17:44] VITALS: BP 138/85
[2017-01-06] MEDS: ACETAMINOPHEN 500 MG TABLET PO PRN (21:44)
[2017-01-06] MEDS: ATORVASTATIN CALCIUM 20 MG TABLET PO SCH (21:44)
[2017-01-06] MEDS: INSULIN DETEMIR 300 UNITS/3 ML INSULN.PEN. SQ SCH (21:49)
[2017-01-07 05:17] VITALS: BP 128/81
[2017-01-07] MEDS: INSULIN ASPART 300 UNITS/3 ML INSULN.PEN SQ SCH ×4 (07:30→21:00)
[2017-01-07] MEDS: CARBIDOPA/LEVODOPA 25/100MG TABLET PO SCH ×4 (09:04→21:03)
[2017-01-07] MEDS: DOXYCYCLINE HYCLATE 100 MG TABLET PO SCH ×2 (09:04→21:03)
[2017-01-07] MEDS: METOPROLOL TART IMMED RELEASE 50 MG TABLET PO SCH ×2 (09:04→21:03)
[2017-01-07] MEDS: PANTOPRAZOLE 40 MG TABLET. PO SCH (09:05)
[2017-01-07] MEDS: APIXABAN 5 MG TABLET. PO SCH ×2 (09:05→21:02)
[2017-01-07] MEDS: CHOLECALCIFEROL (VITAMIN D3) 1,000 UNIT TABLET PO SCH (09:05)
[2017-01-07] MEDS: DIGOXIN 125 MCG TABLET PO SCH (09:05)
[2017-01-07] MEDS: rOPINIRole 1 MG TABLET. PO SCH ×3 (09:05→21:03)
[2017-01-07] MEDS: LACTOBACILLUS RHAMNOSUS GG 1 CAPSULE. PO SCH ×2 (10:30→21:02)
[2017-01-07] MEDS: PRIMIDONE 50 MG TABLET PO SCH (10:30)
[2017-01-07 17:56] VITALS: BP 120/79
[2017-01-07] MEDS: ATORVASTATIN CALCIUM 20 MG TABLET PO SCH (21:02)
[2017-01-07] MEDS: INSULIN DETEMIR 300 UNITS/3 ML INSULN.PEN. SQ SCH (21:10)
[2017-01-08] MEDS: ACETAMINOPHEN 500 MG TABLET PO PRN (00:44)
[2017-01-08 05:41] VITALS: BP 113/69
[2017-01-08] MEDS: INSULIN ASPART 300 UNITS/3 ML INSULN.PEN SQ SCH ×2 (07:30→11:41)
[2017-01-08] MEDS: PANTOPRAZOLE 40 MG TABLET. PO SCH (08:17)
[2017-01-08] MEDS: APIXABAN 5 MG TABLET. PO SCH (08:17)
[2017-01-08 08:18] VITALS: BP 113/69
[2017-01-08] MEDS: METOPROLOL TART IMMED RELEASE 50 MG TABLET PO SCH (08:18)
[2017-01-08] MEDS: LACTOBACILLUS RHAMNOSUS GG 1 CAPSULE. PO SCH (08:18)
[2017-01-08] MEDS: CARBIDOPA/LEVODOPA 25/100MG TABLET PO SCH ×2 (08:18→14:00)
[2017-01-08] MEDS: DIGOXIN 125 MCG TABLET PO SCH (08:18)
[2017-01-08] MEDS: CHOLECALCIFEROL (VITAMIN D3) 1,000 UNIT TABLET PO SCH (08:19)
[2017-01-08] MEDS: PRIMIDONE 50 MG TABLET PO SCH (08:20)
[2017-01-08] MEDS: rOPINIRole 1 MG TABLET. PO SCH ×2 (08:22→14:00)
[2017-01-08] MEDS: DOXYCYCLINE HYCLATE 100 MG TABLET PO SCH (08:22)
--- NOTE | 2017-01-08 13:01 | DS ---
DATE OF DISCHARGE: 01/08/2017 HOSPITAL COURSE: This is a 71-year-old male patient who was originally admitted with a syncopal episode on 12/30/2016. At that time, he had sustained multiple abrasions on his face and both knees. He was hypotensive, septic and was found to have community-acquired pneumonia, treated with Rocephin and Zithromax. As he continued to be weak and debilitated, a decision was made to admit him to swing bed on 01/06/2017. Apparently, he did well and a decision was made to discharge him home with home health to continue the process of rehabilitation there. The patient did very well in his ambulation and it was felt that the patient is safe to be discharged home with home health. PHYSICAL EXAMINATION: GENERAL: When I saw him today, he was sitting comfortably in his chair, eating his lunch, in no apparent distress. On questioning him, he denied any complaint when I examined him he looked pale, but no jaundice, cyanosis, or thyromegaly. No jugular venous distention. No limb edema. VITAL SIGNS: His heart rate was 83, blood pressure was 113/69, temperature was 97.8, respiratory rate was 18, and oxygen saturation was 92%. HEAD, EYES, EARS, NOSE AND THROAT: Showed normocephalic, atraumatic. All the bruises on his left worship have completely disappeared. NECK: Supple. Heart, chest and abdomen and the rest of clinical examination is unremarkable, has not really changed. LABORATORY DATA: Showed his white cell count was 6900, hemoglobin 11, hematocrit 33, MCV 85 and platelet count 256,000. His most recent chemistry showed his serum sodium 142, potassium 3.6, chloride 108, bicarbonate 29, anion gap of 5, BUN 10, creatinine 0.6, estimated GFR was 133 mL per minute. His glucose of 111, calcium was 8.4, magnesium was 1.5. Total bilirubin, AST, ALT, alkaline phosphatase were normal. Total protein was 5.8, albumin 2. His most recent prothrombin time was 14.2, INR of 1.4. DISCHARGE MEDICATIONS: He was discharged home to continue on Tylenol 500 mg every 6 hours, Levemir insulin 10 units at bedtime, doxycycline 100 mg p.o. b.i.d., vitamin D 5000 units once a day, digoxin 125 mcg once a day, primidone 50 mg with breakfast, Protonix 40 mg once a day, apixaban 5 mg p.o. b.i.d., Requip 1 mg 3 times a day, metoprolol tartrate 50 mg twice a day, lactobacillus rhamnosus 1 capsule twice a day, atorvastatin 20 mg at bedtime, albuterol sulfate 2.5 mg by nebulizer every 6 hours, carbidopa and levodopa for Sinemet 25/100 q.i.d. FINAL DISCHARGE DIAGNOSES: 1. Status post fall with multiple bruises, have resolved. 2. Community-acquired pneumonia 3. Parkinson disease. 4. Hypertension. 5. Hyperlipidemia. 6. Diabetes mellitus. 7. Deep venous thrombosis and pulmonary embolism for which he is now on apixaban. CHANG FLOWER MD DR: DAIJA/re JOB#: [id number] / [id number]
== END 2017-01-08 14:05 | disposition home health service (06) | DRG 947 ==
LOC: LND 01-03 13:00
PROVIDERS: ADMIT Family Medicine; ATTEND Family Medicine
DX: R53.1 Weakness (principal); J18.1 Lobar pneumonia, unspecified organism; G20 Parkinson's disease; I48.91 Unspecified atrial fibrillation; E11.9 Type 2 diabetes mellitus without complications; E78.5 Hyperlipidemia, unspecified; I10 Essential (primary) hypertension; G25.2 Other specified forms of tremor
CPT/HCPCS: 36415; 71020; 80053; 82947; 83735; 85025; G0238; 97110; 97112; 97116; 97530

== ENCOUNTER 2018-06-01 13:27 | Emergency (ER) | payer MEDICARE, OTHER ==
[~2018-06-01] VITALS: Ht 177.8 cm; Wt 87.5 kg
[~2018-06-01 13:27] MED LIST changes: +CHOL500016 PO; +DIGO125T17 PO; +INSU100I17 SQ; +INSU100V13 SQ; +IPRA3AMP29 NEB; +LACT1CAP19 PO; +METF500T16 PO; -METF500T4 PO; +METO50TA6 PO; -VALS80TA22 PO; +VALS80TA28 PO; +WARF-31 PO; +WARF1TAB69 PO; -WARF1TAB7 PO; +WARF3TAB50 PO; -WARF3TAB7 PO; -WARF5TAB7 PO
[2018-06-01] MEDS ORDERED: IV NORMAL SALINE 1,000ML 1,000 ML IV ONE (13:45)
[2018-06-01] MEDS ORDERED: INSULIN REGULAR 100 UNIT/ML 3ML VIAL. IV ONE ×2 (13:45→15:45)
[2018-06-01 14:08] LABS: BASO % 0 % (0-3); EOS % 0 % (0-3); HEMATOCRIT 40.7 % (39.0-53.0); LYMPH # 0.9 x10^3/uL (1.0-4.8); LYMPH % 11 % (24-48); MEAN CORPUSCULAR HEMOGLOBIN 28 pg (25-35); MEAN CORPUSCULAR HGB CONC 32 g/dL (31-37); MEAN CORPUSCULAR VOLUME 87 fL (79-100); MONO # 0.6 x10^3/uL (0.0-1.1); MONO % 7 % (0-9); NEUT % 82 % (31-73); PLATELET COUNT 131 x10^3/uL (140-400); RED BLOOD COUNT 4.68 x10^6/uL (4.30-5.70); RED CELL DISTRIBUTION WIDTH 16.9 % (11.5-14.5); WHITE BLOOD COUNT 8.5 x10^3/uL (4.0-11.0)
[2018-06-01 14:21] LABS: ALBUMIN 3.1 g/dL (3.4-5.0); ALBUMIN/GLOBULIN RATIO 0.9 (1.0-1.7); CALCIUM 8.9 mg/dL (8.5-10.1); CREATININE 0.8 mg/dL (0.7-1.3); POTASSIUM 3.8 mmol/L (3.5-5.1); TOTAL BILIRUBIN 0.6 mg/dL (0.2-1.0); TOTAL PROTEIN 6.7 g/dL (6.4-8.2)
--- NOTE | 2018-06-01 14:22 | PHYS DOC ---
Past History Past Medical History: A-Fib, Diabetes, Other Past Surgical History: Cholecystectomy, Other Alcohol Use: None Drug Use: None Adult General Chief Complaint Chief Complaint: MULTIPLE COMPLAINTS HPI HPI 73-year-old male presents via EMS with increased tremor and hyperglycemia. The patient has Parkinson's at baseline. He noticed today that he was having more tremor than usual and he was concerned. He wrecked his blood sugar and it was over 400. It is usually not this high. The patient cannot remember what his blood sugar was when he woke up this morning. He is on NovoLog and Lantus. He has been taking it as prescribed. Admits to 2 days of loose stools. He denies vomiting, fever, or chills. Patient is also been feeling some mild intermittent dizziness, mostly with standing up after sitting. He takes blood pressure medicine. Review of Systems Review of Systems Constitutional: Denies fever or chills [] Eyes: Denies change in visual acuity, redness, or eye pain [] HENT: Denies nasal congestion or sore throat [] Respiratory: Denies cough or shortness of breath [] Cardiovascular: No additional information not addressed in HPI [] GI: Denies abdominal pain, nausea, vomiting, bloody stools or diarrhea [] : Denies dysuria or hematuria [] Musculoskeletal: Denies back pain or joint pain [] Integument: Denies rash or skin lesions [] Neurologic: Increased tremor. Denies headache, focal weakness or sensory changes [] Endocrine: Denies polyuria or polydipsia [] All other systems were reviewed and found to be within normal limits, except as documented in this note. Current Medications Current Medications Current Medications Medications (Trade) Dose Ordered Sig/Karen Start Time Stop Time Status Last Admin Dose Admin Insulin Human Regular (HumuLIN R VIAL) 10 unit 1X ONCE 06/01/18 13:45 06/01/18 13:54 DC 06/01/18 13:57 10 UNIT Sodium Chloride 1,000 ml @ 1,000 mls/hr 1X ONCE 06/01/18 13:45 06/01/18 14:44 06/01/18 13:56 1,000 MLS/HR Allergies Allergies Allergies Coded Allergies Type Severity Reaction Last Updated Verified No Known Drug Allergies 07/13/14 No Physical Exam Physical Exam Constitutional: Well developed, well nourished, no acute distress, non-toxic appearance. [] HENT: Normocephalic, atraumatic, bilateral external ears normal, oropharynx moist, no oral exudates, nose normal. [] Eyes: PERRLA, EOMI, conjunctiva normal, no discharge. [] Neck: Normal range of motion, no tenderness, supple, no stridor. [] Cardiovascular:Heart rate regular rhythm, no murmur [] Lungs & Thorax: Bilateral breath sounds clear to auscultation [] Abdomen: Bowel sounds normal, soft, no tenderness, no masses, no pulsatile masses. [] Skin: Warm, dry, no erythema, no rash. [] Back: No tenderness, no CVA tenderness. [] Extremities: No tenderness, no cyanosis, no clubbing, ROM intact, no edema. [] Neurologic: Alert and oriented X 3, bilateral upper extremity fine tremor, normal sensory function, no focal deficits noted. [] Psychologic: Affect normal, judgement normal, mood normal. [] Current Patient Data Vital Signs Vital Signs Date Time Temp Pulse Resp B/P (MAP) Pulse Ox O2 Delivery O2 Flow Rate FiO2 06/01/18 13:42 97.5 88 18 96 Room Air Lab Results Laboratory Tests Test 06/01/18 13:37 06/01/18 13:55 Glucose (Fingerstick) 410 mg/dL (70-99) H White Blood Count 8.5 x10^3/uL (4.0-11.0) Red Blood Count 4.68 x10^6/uL (4.30-5.70) Hemoglobin 13.0 g/dL (13.0-17.5) Hematocrit 40.7 % (39.0-53.0) Mean Corpuscular Volume 87 fL (79-100) Mean Corpuscular Hemoglobin 28 pg (25-35) Mean Corpuscular Hemoglobin Concent 32 g/dL (31-37) Red Cell Distribution Width 16.9 % (11.5-14.5) H Platelet Count 131 x10^3/uL (140-400) L Neutrophils (%) (Auto) 82 % (31-73) H Lymphocytes (%) (Auto) 11 % (24-48) L Monocytes (%) (Auto) 7 % (0-9) Eosinophils (%) (Auto) 0 % (0-3) Basophils (%) (Auto) 0 % (0-3) Neutrophils # (Auto) 7.0 x10^3uL (1.8-7.7) Lymphocytes # (Auto) 0.9 x10^3/uL (1.0-4.8) L Monocytes # (Auto) 0.6 x10^3/uL (0.0-1.1) Eosinophils # (Auto) 0.0 x10^3/uL (0.0-0.7) Basophils # (Auto) 0.0 x10^3/uL (0.0-0.2) EKG EKG [] Radiology/Procedures Radiology/Procedures [] Course & Med Decision Making Course & Med Decision Making Pertinent Labs and Imaging studies reviewed. (See chart for details) Patient's labs are remarkable for an elevated blood sugar for 10. He was given 2 different boluses of normal insulin 10 in its each. His blood sugar has improved to 263. Patient is feeling much better at this time. He is stable for discharge at this time. [] Dragon Disclaimer Dragon Disclaimer This electronic medical record was generated, in whole or in part, using a voice recognition dictation system. Departure Departure: Impression: Primary Impression: Hyperglycemia Additional Impression: Parkinson disease Disposition: HOME, SELF-CARE Condition: STABLE Referrals: JOJO GUNTER (PCP) Patient Instructions: Hyperglycemia, [id number] Problem Qualifiers KEITH MATTHEWS DO Jun 01, 2018 14:22
[2018-06-01 17:41] VITALS: BP 112/78
== END 2018-06-01 17:45 | disposition home or self-care (01) ==
LOC: ER 13:27
DX: E11.65 Type 2 diabetes mellitus with hyperglycemia (principal); G20 Parkinson's disease; I48.91 Unspecified atrial fibrillation; Z90.49 Acquired absence of other specified parts of digestive tract
CPT/HCPCS: 36415; 80053; 82947; 85025; 96374; 96376; 99284; J1815; J7030

== ENCOUNTER 2018-12-30 12:12 | Inpatient (IN) | payer MEDICARE, OTHER ==
[~2018-12-30] VITALS: Ht 185.4 cm; Wt 84.0 kg
[~2018-12-30 12:12] MED LIST changes: +OMEP40CA45 PO; -OMEP40CA5 PO
--- NOTE | 2018-12-30 12:30 | RAD ---
CT CODE STROKE HEAD WO History: Code stroke, altered mental status Comparison: December 29, 2016 Technique: Noncontrast CT imaging was performed of the head. Exposure: One or more of the following individualized dose reduction techniques were utilized for this examination: 1. Automated exposure control 2. Adjustment of the mA and/or kV according to patient size 3. Use of iterative reconstruction technique. Findings: There is mild motion. No acute intracranial hemorrhage is identified. There is again moderate supratentorial atrophy somewhat greater of the parietal lobes, also degree of mild supratentorial involutional change. There is no new intra-axial mass effect or midline shift. Ventricular size is similar. There is again multifocal moderate to severe ill-defined low-density of the supratentorial parenchyma bilaterally. There is near complete opacification of the left maxillary sinus. There is variable fairly severe left ethmoid air cell opacification, to lesser degree on the right. There is atherosclerotic calcification of the carotid siphons bilaterally. Mastoid air cells are aerated. Impression: 1. There is no evidence of acute intracranial hemorrhage. 2. There is again multifocal low-density of the supratentorial parenchyma bilaterally, nonspecific findings more commonly due to chronic microvascular ischemic disease in a patient this age. 3. There is moderate supratentorial atrophy somewhat greater of the parietal lobes. 4. There is near complete opacification left maxillary sinus, also left greater than right variable ethmoid air cell opacification. Critical results were discussed with KEITH MATTHEWS at 12/30/2018 12:26 PM. Electronically signed by: Robert Sparks MD (12/30/2018 12:27 PM) [id number]
--- NOTE | 2018-12-30 12:43 | PHYS DOC ---
Past History Past Medical History: A-Fib, Diabetes, Other Past Surgical History: Cholecystectomy, Other Alcohol Use: None Drug Use: None Adult General Chief Complaint Chief Complaint: [facility] HPI 73-year-old male presents via EMS with a code stroke. The patient was found to be unresponsive at his care facility. He woke up for EMS and appeared to have slurred speech and aphasia. He had a second episode of unresponsiveness in the ambulance. He was conscious when he arrived emergency room. The patient tells me that he does not remember any of these things. He remembers waking up this morning and having a cough but otherwise feeling okay. She has a history of strokes. He does not believe his any recent medication changes. He also has history of Parkinson's. Patient denies fever or chills. He denies any weakness or pain at this time. Review of Systems Review of Systems Constitutional: Denies fever or chills [] Eyes: Denies change in visual acuity, redness, or eye pain [] HENT: Denies nasal congestion or sore throat [] Respiratory: Denies cough or shortness of breath [] Cardiovascular: No additional information not addressed in HPI [] GI: Denies abdominal pain, nausea, vomiting, bloody stools or diarrhea [] : Denies dysuria or hematuria [] Musculoskeletal: Denies back pain or joint pain [] Integument: Denies rash or skin lesions [] Neurologic: Syncope. Denies headache, focal weakness or sensory changes [] Endocrine: Denies polyuria or polydipsia [] All other systems were reviewed and found to be within normal limits, except as documented in this note. Allergies Allergies Allergies Coded Allergies Type Severity Reaction Last Updated Verified No Known Drug Allergies 07/13/14 No Physical Exam Physical Exam Constitutional: Well developed, well nourished, no acute distress, non-toxic appearance. [] HENT: Normocephalic, atraumatic, bilateral external ears normal, oropharynx moist, no oral exudates, nose normal. [] Eyes: PERRLA, EOMI, conjunctiva normal, no discharge. [] Neck: Normal range of motion, no tenderness, supple, no stridor. [] Cardiovascular:Heart rate regular rhythm, no murmur [] Lungs & Thorax: Bilateral breath sounds clear to auscultation [] Abdomen: Bowel sounds normal, soft, no tenderness, no masses, no pulsatile masses. [] Skin: Warm, dry, no erythema, no rash. [] Back: No tenderness, no CVA tenderness. [] Extremities: No tenderness, no cyanosis, no clubbing, ROM intact, no edema. [] Neurologic: Alert and oriented X 3, normal motor function, normal sensory function, no focal deficits noted. [] Psychologic: Affect normal, judgement normal, mood normal. [] Current Patient Data Lab Results Laboratory Tests Test 12/30/18 12:23 Glucose (Fingerstick) 73 mg/dL (70-99) EKG EKG Irregular rhythm, rate 68, no definitive P waves, likely A. fib, no ST elevations or depressions. PVC[] Radiology/Procedures Radiology/Procedures [] Course & Med Decision Making Course & Med Decision Making Pertinent Labs and Imaging studies reviewed. (See chart for details) The patient's NIH stroke scale is 0. His noncontrast head CT is negative for bleed or other acute findings. He does have chronic findings. See official read for more details. Sounds like the patient had at least 2 syncopal episodes. I am unsure of the cause at this time. His workup is pending. This does not appear to be a stroke at this time. The patient's labs are unremarkable. His urinalysis is negative for infection. I am admitting the patient for syncope. Discussed the patient with Dr. Howard and he has accepted the patient for admission. 33 minutes of critical care time was spent on this patient exclusive of other billable procedures. [] Dragon Disclaimer Dragon Disclaimer This electronic medical record was generated, in whole or in part, using a voice recognition dictation system. Departure Departure: Impression: Primary Impression: Syncope Disposition: ADMITTED INPATIENT Admitting Physician: Lucia Howard Condition: STABLE Referrals: JOJO GUNTER (PCP) Problem Qualifiers Primary Impression: Syncope Syncope type: unspecified Qualified Codes: R55 - Syncope and collapse KEITH MATTHEWS DO Dec 30, 2018 12:43
[2018-12-30 12:54] LABS: BASO % 0 % (0-3); EOS # 0.2 x10^3/uL (0.0-0.7); EOS % 2 % (0-3); HEMATOCRIT 34.6 % (39.0-53.0); HEMOGLOBIN 11.1 g/dL (13.0-17.5); LYMPH # 1.8 x10^3/uL (1.0-4.8); LYMPH % 19 % (24-48); MEAN CORPUSCULAR HEMOGLOBIN 27 pg (25-35); MEAN CORPUSCULAR HGB CONC 32 g/dL (31-37); MEAN CORPUSCULAR VOLUME 85 fL (79-100); MONO # 1.1 x10^3/uL (0.0-1.1); MONO % 11 % (0-9); NEUT # 6.6 x10^3uL (1.8-7.7); NEUT % 68 % (31-73); PLATELET COUNT 224 x10^3/uL (140-400); RED BLOOD COUNT 4.06 x10^6/uL (4.30-5.70); RED CELL DISTRIBUTION WIDTH 19.7 % (11.5-14.5); WHITE BLOOD COUNT 9.6 x10^3/uL (4.0-11.0)
[2018-12-30 13:08] LABS: ALBUMIN 2.8 g/dL (3.4-5.0); ALBUMIN/GLOBULIN RATIO 0.6 (1.0-1.7); ALK PHOS 55 U/L (46-116); ANION GAP 8 (6-14); AST (SGOT) 15 U/L (15-37); BLOOD UREA NITROGEN 10 mg/dL (8-26); BUN/CREATININE RATIO 14 (6-20); CARBON DIOXIDE 29 mmol/L (21-32); CHLORIDE 102 mmol/L (98-107); CREATININE 0.7 mg/dL (0.7-1.3); GFR 110.9; GLUCOSE 73 mg/dL (70-99); POTASSIUM 3.6 mmol/L (3.5-5.1); SODIUM 139 mmol/L (136-145); TOTAL BILIRUBIN 0.6 mg/dL (0.2-1.0); TOTAL PROTEIN 7.6 g/dL (6.4-8.2)
[2018-12-30 13:09] LABS: ALT (SGPT) < 6 U/L (16-63)
--- NOTE | 2018-12-30 13:41 | RAD ---
CHEST AP ONLY 12/30/2018 12:53 PM INDICATION: Syncope COMPARISON: 01/05/2017 TECHNIQUE: Portable frontal view of the chest is provided. FINDINGS: The cardiomediastinal silhouette is similar in appearance. Improved aeration of the left lung bases compared to prior examination. No pulmonary vascular congestion or pneumothorax. Trace bilateral pleural effusions versus pleural thickening. Lungs are otherwise clear. IMPRESSION: There may be trace bilateral pleural effusions versus pleural thickening. Electronically signed by: Moni Wood MD (12/30/2018 1:38 PM) [facility]
[2018-12-30] MEDS ORDERED: ACETAMINOPHEN 325 MG TABLET PO PRN ×2 (14:15→19:30)
[2018-12-30] MEDS ORDERED: ONDANSETRON PF 4 MG/2 ML VIAL. IV PRN (14:15)
[2018-12-30] MEDS ORDERED: KETOROLAC 15 MG/ML VIAL. IVP ONE (14:15)
[2018-12-30 14:55] LABS: BACTERIA,URINE 0 /HPF (0-FEW); BILIRUBIN,URINE NEG (NEG); CLARITY,URINE CLEAR; COLOR,URINE YELLOW; GLUCOSE,URINE NEG (NEG); NITRITE,URINE NEG (NEG); RBC,URINE 0 /HPF (0-2); UROBILINOGEN,URINE 1 mg/dL (0.2 mg/dL)
[2018-12-30 14:58] VITALS: BP 127/67
--- NOTE | 2018-12-30 15:43 | NUR ---
NURSING NOTE ADMIT PT ADMIT FROM ED TO ROOM 125 FOR DX OF SYNCOPE. PT STATES HE FEELS FINE NOW, ONLY COMPLAINT IS CHRONIC BACK PAIN. PT IS A&O. PT SKIN HAS HEALING SCAB TO RIGHT JOYA, PT COCCYX RED. FOAM ORDERED FOR ROTATING PT. PT HAS HX OF COCCYX WOUNDS. PT SETTLED IN ROOM. SPEECH THERAPY CALLED, STATES HE PASSED HIS BEDSIDE SWALLOW AND THEY WILL SEE PT IN THE MORNING AND HE IS OKAY TO EAT AND DRINK BASED ON BEDSIDE SWALLOW. PAYTON PECK.
--- NOTE | 2018-12-30 16:19 | NUR ---
NURSING NOTE CONSULT CARDIOLOGY CONSULT CALLED TO JULY [id number]. PAYTON PECK.
--- NOTE | 2018-12-30 16:20 | NUR ---
NURSING NOTE CONSULT NEURO DR GONZALEZ PAGED AT [phone]. PENDING CALL BACK. PAYTON PECK.
[2018-12-30 16:25] VITALS: BP_SYST 115; BP_SYST 99; BP_DIAS 57; BP_DIAS 58
[2018-12-30 16:26] VITALS: BP 99/61
[2018-12-30] MEDS ORDERED: APIX5TAB5 PO (16:27)
[2018-12-30] MEDS ORDERED: MAGN400O7 PO (16:27)
[2018-12-30] MEDS ORDERED: ASPI81TA59 PO (16:27)
[2018-12-30] MEDS ORDERED: SODI44SP NS (16:27)
[2018-12-30] MEDS ORDERED: LANO250L TP (16:27)
[2018-12-30] MEDS ORDERED: CICL544C TP (16:27)
[2018-12-30] MEDS ORDERED: SPIR50TA4 PO ×2 (16:27→19:19)
[2018-12-30] MEDS ORDERED: POLY500W3 MC (16:27)
[2018-12-30] MEDS ORDERED: ACET325T21 PO (16:27)
[2018-12-30] MEDS ORDERED: ATOR20TA58 PO (16:27)
[2018-12-30] MEDS ORDERED: DIGO250T PO (16:27)
[2018-12-30] MEDS ORDERED: GUAI600T47 PO (16:27)
[2018-12-30] MEDS ORDERED: INSU100I13 SQ ×2 (16:27)
[2018-12-30] MEDS ORDERED: ONDA4TAB7 PO (16:27)
[2018-12-30] MEDS ORDERED: WITC1MED18 TP (16:27)
[2018-12-30] MEDS ORDERED: TRAM-48 PO (16:27)
--- NOTE | 2018-12-30 16:30 | NUR ---
NURSING NOTE ORTHOSTATICS LAYING 115/57 PULSE 81 SITTING 99/58 PULSE 81 STANDING 99/51 PULSE 85 PAYTON PECK.
--- NOTE | 2018-12-30 16:40 | EKG ---
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
--- NOTE | 2018-12-30 18:04 | RAD ---
Clinical Indications: Syncope. Exam : Carotid Duplex with Grayscale Ultrasound and Spectral and Color Doppler Analysis: PQRS Compliance Statement - Stenosis calculations for CT, MR and conventional angiography are based upon measurement of the distal ICA diameter in accordance with the NASCET methodology. Stenosis calculations for carotid ultrasound studies are derived from validated velocity criteria which are known to correlate with the NASCET methodology. Comparison study: None available. Findings: The common, internal and external carotid arteries were examined by grayscale, color and spectral Doppler ultrasound. Mild atherosclerotic calcifications identified in the bilateral carotid bulbs and the proximal internal carotid arteries. Flow in both vertebral arteries was antegrade and normal. The following are the velocities and ratios in the carotid arteries on both sides: RIGHT ICA PV: 67cm/sec RIGHT CCA PV: 58cm/sec RIGHT ICA ED: 19cm/sec RIGHT IC/CCPV: 1.2 RIGHT VERTEBRAL: antegrade flow RIGHT % STENOSIS: Less than 50 percent LEFT ICA PV: 91cm/sec LEFT CCA PV: 94cm/sec LEFT ICA ED: 25cm/sec LEFT IC/CCPV: 0.9 LEFT VERTEBRAL: antegrade flow LEFT % STENOSIS: Less than 50 percent <50% ICA Stenosis: PSV < 125cm/s (EDV < 40cm/s; SVR < 2.0) 50-69% ICA Stenosis: PSV < 125-229cm/s (EDV 40-99cm/s; SVR 2.0-3.9) >70% ICA Stenosis: PSV > 230cm/s (EDV >100cm/s; SVR >4.0) Impression: No evidence of hemodynamically significant stenosis. Electronically signed by: Quique Ireland MD (12/30/2018 6:02 PM) [place] [id number]
[2018-12-30] MEDS ORDERED: DILT60TA PO (19:19)
[2018-12-30] MEDS ORDERED: DILT120C99 PO (19:19)
[2018-12-30] MEDS ORDERED: POLY17PO5 PO (19:19)
[2018-12-30] MEDS ORDERED: MAGNESIUM HYDROXIDE 2,400 MG/30 ML ORAL.SUSP. PO PRN (19:30)
[2018-12-30] MEDS ORDERED: DEXTROSE 50% 25 GM / 50ML DISP.SYRIN. IV PRN (19:30)
[2018-12-30] MEDS ORDERED: traMADol 50 MG TABLET PO PRN (19:30)
--- NOTE | 2018-12-30 19:37 | HP ---
ADMIT DATE: HISTORY OF PRESENT ILLNESS: The patient is a 73-year-old male patient, a resident at [facility], who apparently was found to be unresponsive at his facility. He woke up for the EMS and appeared to have slurred speech and aphasia. He had a second episode of unresponsiveness in the ambulance. He was conscious when he arrived to the emergency room. The patient stated that he does not remember any of these things. He remembers waking up this morning and having a cough, but otherwise feeling okay. He has a history of strokes. He does not believe that his medication has changed. He also has a history of Parkinson's disease. Denied any chills, rigors or fever. He denied any weakness or pain at this time. He was extensively investigated in the emergency room and his EKG showed that he was in regular rhythm at a rate of 68 with no definite P waves, likely atrial fibrillation, controlled rate. No ST segment depression or elevation. He has had a chest x-ray which showed the cardiomediastinal silhouette is similar in appearance, improved aeration of the left lung base as compared to prior examination. No pulmonary vascular congestion or pneumothorax. Trace bilateral pleural effusion versus pleural thickening. Lungs are otherwise clear. The CT scan of the head showed no evidence of any acute intracranial hemorrhage. There was again multifocal low density of the supratentorial parenchyma bilaterally nonspecific finding, more commonly due to chronic microvascular ischemic disease in a patient with this age. There is moderate supratentorial atrophy, somewhat greater of the parietal lobes. There is near complete opacification of the left maxillary sinus, also left greater than right; variable ethmoid air cell opacification. He has had lab work done which was basically unremarkable. Urinalysis was essentially unremarkable. His chemistry is also normal. Did have normochromic normocytic anemia. His prothrombin time, INR and aPTT are normal. The patient was admitted for further evaluation of his recurrent syncopal episode or loss of consciousness. 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 PAST SURGICAL HISTORY: Significant for thyroidectomy, bilateral cataract extraction and cholecystectomy. ALLERGIES: He apparently has no known drug allergies. MEDICATIONS: He is currently on following medications: He is on aspirin 81 mg once a day, atorvastatin calcium 20 mg at bedtime, carbidopa/levodopa 25/100 one tablet 3 times a day, Ciclodan cream 0.77% applied topically to the rectal area at bedtime for itching, Deep Sea Nasal [place] one spray to each nostril 2 times a day. He is on digoxin 250 mcg once a day, diltiazem 120 mg once a day, Eliquis 5 mg twice a day, Eucerin cream applied topically to both feet at nighttime for dry skin. He is on Lantus SoloSTAR solution takes 10 units at bedtime, Lantus SoloSTAR 30 units subcutaneously 1 time a day related to type 1 diabetes, metoprolol tartrate 50 mg twice a day, milk of magnesia 30 mL p.o. daily p.r.n. for constipation, Mucinex tablet 1200 mg twice a day. He is also on NovoLog 20 units subcutaneously before meals and he also has NovoLog insulin as insulin sliding scale before meals, omeprazole 20 mg, he takes 2 tablets by mouth once a day, polyethylene glycol 17 grams daily, primidone tablet 50 mg for tremors one time a day, Requip 1.5 mg 3 times a day, spironolactone 50 mg once a day, Tucks Medicated Cooling Pad 50% with witch toan applied to rectum typically 3 times a day for itching, Tylenol tablets 650 mg every 4 hours as needed, Ultram 50 mg 4 times a day as needed, vitamin D 5000 international unit once a day, Zofran 4 mg every 6 hours. FAMILY HISTORY: He has 1 brother and 2 sisters, seemingly healthy. He does not know his biological parents. SOCIAL HISTORY: , has 1 son. He does not smoke, drink alcohol or use any recreational drugs. 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 REVIEW OF SYSTEMS: The patient denied any blurring of vision, cataract, glaucoma or macular degeneration. Denied any earache, tinnitus or sensorineural deafness. Denied nosebleeds, stuffy nose or postnasal drip. Denied any sore throat, sore tongue, toothache, hoarseness of voice or difficulty swallowing. Denied any nausea, vomiting, diarrhea or constipation. Denied any hematemesis, melena or hematochezia. Denied any dysuria, frequency or hematuria. Denied any chest pain, shortness of breath, orthopnea or paroxysmal nocturnal dyspnea. PHYSICAL EXAMINATION: GENERAL: On arrival to the emergency room, he looked well and was clearly in no apparent respiratory distress, pale, not jaundiced, cyanosis or thyromegaly. No jugular venous distention. No limb edema. VITAL SIGNS: His heart rate was 63, blood pressure 114/57, temperature was 97.9, respiratory rate 20, and oxygen saturation was 100%. HEAD, EYES, EARS, NOSE AND THROAT: Showed normocephalic, atraumatic. NECK: Supple. HEART: Showed normal first and second heart sounds. No gallop or murmur. CHEST: Clear to auscultation. No crepitation or rhonchi. ABDOMEN: Distended, soft, nontender. NEUROLOGIC: By the time I saw him, he was awake, alert, responding appropriately. All cranial nerves intact. He moves extremities without difficulty. He stated that he is mostly wheelchair bound, although he walks with a walker with physical therapy. LABORATORY DATA: On admission showed a white cell count of 9600, hemoglobin 11, hematocrit 34, MCV 85 and platelet count 224,000. His chemistry showed a serum sodium of 139, potassium 3.6, chloride 102, bicarbonate 29, anion gap of 8, BUN 10, creatinine 0.7, estimated GFR was 110 mL per minute. His glucose was 73, calcium was 9. Total bilirubin, AST, ALT, alkaline phosphatase were normal. Total protein was 7.6, albumin was 2.8. His prothrombin time was 11.5, INR 1.1, aPTT 34. Urinalysis showed the urine was essentially normal. The urine was yellow, clear with a pH of 6.5, specific gravity 1.010. The urine was negative for protein, glucose, ketones, blood, nitrite and leukocyte esterase. There were no rbc's, no wbc's, and no bacteria. ASSESSMENT: In summary, this is a 73-year-old male patient, a resident at [facility], who admitted with recurrent syncopal episode. PLAN: My plan is to check his orthostatics. We will consult the entry level web developer as well as the neurologist. We will arrange for him to have bilateral carotid Doppler ultrasound. CHANG FLOWER MD DR: Leesa JOB#: [id number] / [id number]
[2018-12-30 19:45] VITALS: BP 117/70
[2018-12-30] MEDS ORDERED: ONDANSETRON ODT 4 MG TAB.RAPDIS PO PRN (20:00)
[2018-12-30] MEDS: CICLOPIROX TP SCH (21:00)
[2018-12-30] MEDS: [UNRECOGNIZED DRUG - OTHER] TP SCH (21:00)
[2018-12-30] MEDS: CARBIDOPA/LEVODOPA 25/100MG TABLET PO SCH (22:13)
[2018-12-30] MEDS: ATORVASTATIN CALCIUM 20 MG TABLET PO SCH (22:13)
[2018-12-30] MEDS: APIXABAN 5 MG TABLET. PO SCH (22:14)
[2018-12-30] MEDS: METOPROLOL TART IMMED RELEASE 50 MG TABLET PO SCH (22:14)
[2018-12-30] MEDS: rOPINIRole 1 MG TABLET. PO SCH (22:15)
[2018-12-30] MEDS: GLYCERIN/WITCH HAZEL TOPICAL PADS 40'S JAR. TP SCH (22:15)
[2018-12-30] MEDS: MINERAL OIL/PETROLATUM TOPICAL CREAM 113GM JAR. TP SCH (22:15)
[2018-12-30] MEDS: SODIUM CHLORIDE 0.65% NASAL SPRAY 45ML BOTTLE. NS SCH (22:15)
[2018-12-30] MEDS: INSULIN GLARGINE SYRINGE. SQ SCH (22:16)
[2018-12-31] VITALS: BP 121/74
[2018-12-31 05:22] VITALS: BP 125/69
[2018-12-31] MEDS: INSULIN LISPRO 300 UNITS/3 ML VIAL. SQ SCH ×6 (07:30→17:51)
[2018-12-31] MEDS: DIGOXIN 125 MCG TABLET PO SCH (08:41)
[2018-12-31] MEDS: PANTOPRAZOLE 40 MG TABLET. PO SCH (08:42)
[2018-12-31] MEDS: SPIRONOLACTONE 25 MG TABLET PO SCH (08:42)
[2018-12-31] MEDS: CARBIDOPA/LEVODOPA 25/100MG TABLET PO SCH ×3 (08:42→21:24)
[2018-12-31] MEDS: CHOLECALCIFEROL (VITAMIN D3) 1,000 UNIT TABLET PO SCH (08:43)
[2018-12-31] MEDS: APIXABAN 5 MG TABLET. PO SCH ×2 (08:44→21:24)
[2018-12-31] MEDS: rOPINIRole 1 MG TABLET. PO SCH ×3 (08:45→21:25)
[2018-12-31] MEDS: PRIMIDONE 50 MG TABLET PO SCH (08:45)
[2018-12-31] MEDS: POLYETHYLENE GLYCOL 3350 17 GM PACKET. PO SCH (08:45)
[2018-12-31] MEDS: METOPROLOL TART IMMED RELEASE 50 MG TABLET PO SCH ×2 (08:46→21:24)
[2018-12-31] MEDS: ASPIRIN 81 MG TAB.CHEW PO SCH (08:46)
[2018-12-31] MEDS: INSULIN GLARGINE SYRINGE. SQ SCH ×2 (09:00→21:00)
[2018-12-31] MEDS: GLYCERIN/WITCH HAZEL TOPICAL PADS 40'S JAR. TP SCH ×3 (09:00→21:24)
[2018-12-31] MEDS: SODIUM CHLORIDE 0.65% NASAL SPRAY 45ML BOTTLE. NS SCH ×2 (09:00→21:00)
--- NOTE | 2018-12-31 09:27 | PDOC2 ---
ROLAN LUU [employer] 12/31/18 0927: CARDIAC CONSULT DATE OF CONSULT Date Of Consult DATE: 12/31/18 TIME: 09:20 REASON FOR CONSULT Reason for Consult Recurrent syncope REFERRING PHYSICIAN Referring Physician Dr. Howard SOURCE Source: Chart review, Patient HPI History of Present Illness This is a 73 yo male who presented from nursing facility secondary to altered mental status. Was found unresponsive at the facility. Became more responsive upon EMS arrival but was noted with slurred speech, aphasia. Had a second episode of unresponsiveness during route to ED. Was conscious upon arrival to the ED. Patient does not recall these episodes. Has felt well since arrival with no dizziness, diaphoresis, chest pain, palpitations, or nausea/vomiting. Does have history of prior episode per record review and was evaluated for syncope versus possible seizure activity PAST MEDICAL HISTORY Past Medical History Pulmonary embolus 2015 Permanent atrial fibrillation. Hypertension. Dyslipidemia. Parkinson disease. Type 2 diabetes mellitus CHF PAST SURGICAL HISTORY Past Surgical History: Cholecystectomy, Other (back surgery, thyroidectomy ) FAMILY HISTORY Family History: Adopted SOCIAL HISTORY Smoke: No ALCOHOL: none Drugs: None Lives: Prison CURRENT MEDICATIONS Current Medications Current Medications Ketorolac Tromethamine (Toradol 15mg Vial) 15 mg 1X ONCE IVP Last administered on 12/30/18at 14:18; Start 12/30/18 at 14:15; Stop 12/30/18 at 14:16; Status DC Ondansetron HCl (Zofran) 4 mg PRN Q4HRS PRN IV NAUSEA/VOMITING; Start 12/30/18 at 14:15; Stop 12/31/18 at 14:14 Acetaminophen (Tylenol) 650 mg PRN Q4HRS PRN PO FEVER; Start 12/30/18 at 14:15; Stop 12/31/18 at 14:14 Acetaminophen (Tylenol) 325 mg PRN DAILY PRN PO pain or fever; Start 12/30/18 at 19:30 Aspirin (Children'S Aspirin) 81 mg DAILY PO Last administered on 12/31/18at 08:46; Start 12/31/18 at 09:00 Atorvastatin Calcium (Lipitor) 20 mg QHS PO Last administered on 12/30/18at 22:13; Start 12/30/18 at 21:00 Diltiazem HCl (Cardizem 24hr Cd) 120 mg DAILY PO Last administered on 12/31/18at 08:44; Start 12/31/18 at 09:00 Guaifenesin (Mucinex Er) 600 mg BID PO Last administered on 12/31/18 08:44; Start 12/30/18 at 21:00 Magnesium Hydroxide (Milk Of Magnesia) 400 mg PRN DAILY PRN PO CONSTIPATION; Start 12/30/18 at 19:30 Metoprolol Tartrate (Lopressor) 50 mg BID PO Last administered on 12/31/18 08:46; Start 12/30/18 at 21:00 Polyethylene Glycol (miraLAX) 17 gm DAILY PO Last administered on 12/31/18 08:45; Start 12/31/18 at 09:00 Primidone (Mysoline) 50 mg DAILY PO Last administered on 12/31/18 08:45; Start 12/31/18 at 09:00 Ropinirole HCl (Requip) 1.5 mg TID PO Last administered on 12/31/18 08:45; Start 12/30/18 at 21:00 Sodium Chloride (Saline Mist Nasal) 1 tha BID NS Last administered on 12/31/18 09:00; Start 12/30/18 at 21:00 Tramadol HCl (Ultram) 50 mg PRN Q6HRS PRN PO PAIN Last administered on 12/30/18 22:14; Start 12/30/18 at 19:30 Apixaban (Eliquis) 5 mg BID PO Last administered on 12/31/18 08:44; Start 12/30/18 at 21:00 Vitamin D (Vitamin D3) 5,000 unit DAILY PO Last administered on 12/31/18 08:43; Start 12/31/18 at 09:00 Non-Formulary Medication (Ciclopirox/Skin Cleanser No.28 (Ciclodan 0.77% Cream Kit)) 544 gm HS TP ; Start 12/30/18 at 21:00; Status UNV Digoxin (Lanoxin) 250 mcg DAILY PO Last administered on 12/31/18 08:41; St art 12/31/18 at 09:00 Insulin Human Lispro (HumaLOG) 20 units TIDAC SQ Last administered on 12/31/18 07:30; Start 12/31/18 at 07:30 Insulin Glargine (Lantus Syringe) 10 unit QHS SQ Last administered on 12/30/18 22:16; Start 12/30/18 at 21:00 Insulin Glargine (Lantus Syringe) 30 unit DAILY SQ Last administered on 12/31/18 09:00; Start 12/31/18 at 09:00 Multi-Ingred Cream/Lotion/Oil/ Oint (Hydrocerin) 1 tha HS TP Last administered on 12/30/18 22:15; Start 12/30/18 at 21:00 Pantoprazole Sodium (Protonix) 40 mg DAILYAC PO Last administered on 12/31/18 08:42; Start 12/31/18 at 07:30 Ondansetron HCl (Zofran Odt) 4 mg PRN Q6HRS PRN PO NAUSEA/VOMITING; Start 12/30/18 at 20:00 Spironolactone (Aldactone) 50 mg DAILY PO Last administered on 12/31/18 08:42; Start 12/31/18 at 09:00 Witch Tsering/ Glycerin (A.e.r Pads) 1 each TID TP Last administered on 12/31/18 09:00; Start 12/30/18 at 21:00 Carbidopa/Levodopa (Sinemet 25/100) 1 tab TID PO Last administered on 12/31/18 08:42; Start 12/30/18 at 21:00 Insulin Human Lispro (HumaLOG) 0-9 UNITS TIDWMEALS SQ Last administered on 12/31/18 08:00; Start 12/31/18 at 08:00 Dextrose (Dextrose 50%-Water Syringe) 12.5 gm PRN Q15MIN PRN IV SEE COMMENTS; Start 12/30/18 at 19:30 Active Scripts Active Reported Diltiazem 24HR Cd (Diltiazem Hcl) 120 Mg Cap.er.24h 1 Cap PO DAILY Spironolactone 50 Mg Tablet 50 Mg PO DAILY Miralax (Polyethylene Glycol 3350) 17 Gm Powd.pack 17 Gm PO DAILY Zofran (Ondansetron Hcl) 4 Mg Tablet 1 Tab PO Q6HRS PRN Tucks (Witch Tsering) 1 Each Med..pad 1 Each TP TID Ultram (Tramadol HCl) 50 Mg Tablet 50 Mg PO PRN Q6HRS PRN Acetaminophen 325 Mg Tablet 1 Tab PO PRN DAILY PRN Mucinex (Guaifenesin) 600 Mg Tablet.er 600 Mg PO BID X7 DAYS, STARTED 12/29/18 Milk Of Magnesia (Magnesium Hydroxide) 400 Mg/5 Ml Oral.susp 400 Mg PO DAILY PRN Lantus Solostar (Insulin Glargine,Hum.rec.anlog) 100 Unit/1 Ml Insuln.pen 10 Unit SQ QHS Lantus Solostar (Insulin Glargine,Hum.rec.anlog) 100 Unit/1 Ml Insuln.pen 30 Unit SQ DAILY Eucerin Original Lotion (Lanolin/Mineral Oil) 250 Ml Lotion 250 Ml TP HS APPLY TO FEET Eliquis (Apixaban) 5 Mg Tab.ds.pk 5 Mg PO BID Digoxin 250 Mcg Tablet 250 Mcg PO DAILY Deep Sea (Sodium Chloride) 44 Ml Brogan 44 Ml NS BID Ciclodan 0.77% Cream Kit (Ciclopirox/Skin Cleanser No.28) 544 Gm Combo..pkg 544 Gm TP HS Children's Aspirin (Aspirin) 81 Mg Tab.chew 81 Mg PO DAILY Metoprolol Tartrate 50 Mg Tablet 1 Tab PO BID Novolog Flexpen (Insulin Aspart) 100 Unit/1 Ml Insuln.pen 20 Unit SQ TIDAC Vitamin D3 (Cholecalciferol (Vitamin D3)) 5,000 Unit Tablet 1 Tab PO DAILY Primidone 50 Mg Tablet 50 Mg PO DAILY LAST DOSE GIVEN: DATE: TIME: NEXT DOSE DUE: DATE: TIME: Atorvastatin Calcium 20 Mg Tablet 20 Mg PO QHS LAST DOSE GIVEN: DATE: TIME: NEXT DOSE DUE: DATE: TIME: Omeprazole 40 Mg Capsule.dr 40 Mg PO DAILY Ropinirole Hcl 1 Mg Tablet 1.5 Mg PO TID Carbidopa-Levodopa 25-100 Tab (Carbidopa/Levodopa) 1 Each Tablet 25-100 Tab PO TID ALLERGIES Allergies: Coded Allergies: No Known Drug Allergies (Unverified , 07/13/14) ROS Review of Systems 14 point ROS conducted with pertinent positives noted above in HPI. PHYSICAL EXAM General: Alert, Oriented X3, Cooperative, No acute distress HEENT: Atraumatic, EOMI Lungs: Clear to auscultation, Normal air movement Heart: Normal S1, Other (AFIB) Abdomen: Normal bowel sounds, Soft Extremities: No edema, Normal pulses Skin: No breakdown Neuro: Normal speech, Sensation intact Psych/Mental Status: Mental status NL, Mood NL MUSCULOSKELETAL: Osteoarthritic changes both hands VITALS Vital Signs Vital Signs Date Time Temp Pulse Resp B/P (MAP) Pulse Ox O2 Delivery O2 Flow Rate FiO2 12/31/18 08:46 83 125/69 12/31/18 05:22 98.2 20 95 Room Air LABS LABS Laboratory Tests Test 12/30/18 12:23 12/30/18 12:26 12/30/18 14:05 12/30/18 17:00 Glucose (Fingerstick) 73 mg/dL (70-99) White Blood Count 9.6 x10^3/uL (4.0-11.0) Red Blood Count 4.06 x10^6/uL (4.30-5.70) Hemoglobin 11.1 g/dL (13.0-17.5) Hematocrit 34.6 % (39.0-53.0) Mean Corpuscular Volume 85 fL (79-100) Mean Corpuscular Hemoglobin 27 pg (25-35) Mean Corpuscular Hemoglobin Concent 32 g/dL (31-37) Red Cell Distribution Width 19.7 % (11.5-14.5) Platelet Count 224 x10^3/uL (140-400) Neutrophils (%) (Auto) 68 % (31-73) Lymphocytes (%) (Auto) 19 % (24-48) Monocytes (%) (Auto) 11 % (0-9) Eosinophils (%) (Auto) 2 % (0-3) Basophils (%) (Auto) 0 % (0-3) Neutrophils # (Auto) 6.6 x10^3uL (1.8-7.7) Lymphocytes # (Auto) 1.8 x10^3/uL (1.0-4.8) Monocytes # (Auto) 1.1 x10^3/uL (0.0-1.1) Eosinophils # (Auto) 0.2 x10^3/uL (0.0-0.7) Basophils # (Auto) 0.0 x10^3/uL (0.0-0.2) Prothrombin Time 11.5 SEC (9.4-11.4) Prothromb Time International Ratio 1.1 (0.9-1.1) Activated Partial Thromboplast Time 34 SEC (23-33) Sodium Level 139 mmol/L (136-145) Potassium Level 3.6 mmol/L (3.5-5.1) Chloride Level 102 mmol/L (98-107) Carbon Dioxide Level 29 mmol/L (21-32) Anion Gap 8 (6-14) Blood Urea Nitrogen 10 mg/dL (8-26) Creatinine 0.7 mg/dL (0.7-1.3) Estimated GFR (Cockcroft-Gault) 110.9 BUN/Creatinine Ratio 14 (6-20) Glucose Level 73 mg/dL (70-99) Calcium Level 9.0 mg/dL (8.5-10.1) Total Bilirubin 0.6 mg/dL (0.2-1.0) Aspartate Amino Transf (AST/SGOT) 15 U/L (15-37) Alanine Aminotransferase (ALT/SGPT) < 6 U/L (16-63) Alkaline Phosphatase 55 U/L (46-116) Troponin I Quantitative < 0.017 ng/mL (0-0.055) < 0.017 ng/mL (0-0.055) Total Protein 7.6 g/dL (6.4-8.2) Albumin 2.8 g/dL (3.4-5.0) Albumin/Globulin Ratio 0.6 (1.0-1.7) Urine Collection Type Unknown Urine Color Yellow Urine Clarity Clear Urine pH 6.5 Urine Specific Daphne 1.010 Urine Protein Neg (NEG-TRACE) Urine Glucose (UA) Neg mg/dL (NEG) Urine Ketones (Stick) Neg mg/dL (NEG) Urine Blood Neg (NEG) Urine Nitrite Neg (NEG) Urine Bilirubin Neg (NEG) Urine Urobilinogen Dipstick 1 mg/dL (0.2 mg/dL) Urine Leukocyte Esterase Neg (NEG) Urine RBC 0 /HPF (0-2) Urine WBC 1-4 /HPF (0-4) Urine Squamous Epithelial Cells None /LPF Urine Bacteria 0 /HPF (0-FEW) Urine Mucus Slight /LPF Test 12/30/18 17:03 12/30/18 21:33 12/31/18 07:37 Glucose (Fingerstick) 79 mg/dL (70-99) 187 mg/dL (70-99) 152 mg/dL (70-99) ECHOCARDIOGRAM Echocardiogram <Conclusion> The systolic function is mildly impaired. EF 50% - Likely due to afib. There is mild global hypokinesis of the left ventricle. Doppler and Color Flow revealed mild tricuspid regurgitation.The PA pressure was estimated at 43 mmHg. DATE: 12/17/16 1358 ASSESSMENT/PLAN Assessment/Plan 1. Syncope, unresponsive event. Etiology unclear. No acute event on tele thus far. Witnessed unresponsive event en route. No report of any acute event on telemetry noted. 2. Chronic AFIB; on Eliquis therapy. Rate controlled with dig and Cardizem 3. Hypertension; controlled 4. Hyperlipidemia; statin 5. Diabetes, II 6. H/o PE 7. Parkinson's Recommendations Monitor tele Orthos Echo to assess LV systolic Continue Eliquis for stroke prophylaxis. Cardizem and Dig for rate control EMELIA KHAN MD 12/31/18 5480: CARDIAC CONSULT ASSESSMENT/PLAN Assessment/Plan Pt. seen and examined. Agree with above [facility] note. Continue present medical therapy. Due to poor history and multiple syncopal events, plan for outpt loop recorder. Thanks. ROLAN LUU APRN Dec 31, 2018 09:27 EMELIA KHAN MD Dec 31, 2018 21:39
[2018-12-31 11:06] VITALS: BP 100/69
--- NOTE | 2018-12-31 11:07 | NUR ---
Pt is alert and oriented x 4. Pt able to state wants and needs. Consults to Speech therapy, Neurology, and Case Management. Speech therapist, Maris assessed pt with swallowing study. No indications for any change with diet or medications noted. Dr. Hein assessed pt, will continue to monitor, no new orders at this time. Pt ambulated with PT/ Ot today. Pt tolerated well. Pt showered and had linens change. Bed in lowest position, none skid socks applied. Pt encouraged to utilize call light for assistance to bathroom. Will continue to monitor and assess.
[2018-12-31 14:22] VITALS: BP 97/55
[2018-12-31 18:43] VITALS: BP 105/52
[2018-12-31] MEDS: CICLOPIROX TP SCH (21:00)
[2018-12-31] MEDS: [UNRECOGNIZED DRUG - OTHER] TP SCH (21:00)
[2018-12-31] MEDS: MINERAL OIL/PETROLATUM TOPICAL CREAM 113GM JAR. TP SCH (21:23)
[2018-12-31] MEDS: ATORVASTATIN CALCIUM 20 MG TABLET PO SCH (21:24)
[2018-12-31 22:05] VITALS: BP 119/67
--- NOTE | 2018-12-31 22:48 | PN ---
DATE: 12/31/2018 SUBJECTIVE: The patient is resting, slightly propped up in bed, sleeping comfortably. On questioning him, he denied any complaint, in particular, he has no further episode of syncopal episode while here, he was evaluated by the Cardiology team and the plan is to place a loop recorder as an outpatient. PHYSICAL EXAMINATION: GENERAL: When I examined him today, he looked pale, but no jaundice, cyanosis or thyromegaly. No jugular venous distension. No limb edema. VITAL SIGNS: Her heart rate was 123, blood pressure was 97/55, temperature was 98, respiratory rate was 20, and oxygen saturation was 98%. HEAD, EYES, EARS, NOSE AND THROAT: Showed normocephalic, atraumatic. NECK: Supple. HEART: Showed normal first and second heart sounds. No gallop or murmur. CHEST: Clear to auscultation. No crepitation or rhonchi. ABDOMEN: Distended, soft, nontender. NEUROLOGIC: He was awake, alert, responding appropriately. All cranial nerves intact. He moves extremities without difficulty. His intake over the last 24 hours was 800, no output was recorded. LABORATORY DATA: His lab work this morning showed a serum sodium of 139, potassium 3.6, chloride 102, bicarbonate 29, anion gap of 8, BUN 10, creatinine 0.7. He has 3 sets of cardiac enzymes that were negative. His blood sugar seems to be reasonably controlled. Hemoglobin is 11, hematocrit 34 with normal white cell count and platelets. ASSESSMENT: 1. Syncopal episode. Patient showed no events on the telemetry thus far. The patient is known to have chronic atrial fibrillation, on Eliquis therapy, rate controlled on digoxin and Cardizem hypertension, hyperlipidemia, type 2 diabetes, history of pulmonary embolism and Parkinson's disease. PLAN: My plan is to discharge him tomorrow morning and arrange for him to have a loop recorder implanted as an outpatient at the Cardiology office. CHANG FLOWER MD DR: DAIJA/re JOB#: [id number] / [id number]
--- NOTE | 2019-01-01 02:32 | CONS ---
DATE OF CONSULTATION: 12/31/2018 NEURO CONSULT REASON FOR CONSULTATION: Mental status changes and possible syncope. REFERRING PHYSICIAN: Dr. Howard. HISTORY OF PRESENT ILLNESS: This is a 73-year-old right-handed male who was admitted through Emergency Room after he was found in a nursing facility unresponsive. EMS was activated. On arrival, the patient was responsive and awake. He denies any headaches, slurred speech, weakness or paresthesia. On his way to Emergency Room, the patient had another episode of unresponsiveness lasted a few minutes. He did not recall those events. However, on arrival to Emergency Room, the patient was alert and oriented without any weakness, slurred speech or visual disturbances. EKG was performed and revealed pulse of 68 without acute changes. Initial nonenhanced head CT scan revealed bilateral chronic microvascular ischemic disease. Currently, the patient denies any new neurological complaints. PAST MEDICAL HISTORY: Significant for syncope, diabetes mellitus, dysphagia, hyperlipidemia, Parkinson disease with resting tremor, intermittent memory loss, hypertension, history of paroxysmal atrial fibrillations, congestive heart failure, unsteady gait for which he uses a walker. PAST SURGICAL HISTORY: Thyroidectomy, cataract extraction and cholecystectomy. FAMILY HISTORY: Noncontributory. SOCIAL HISTORY: The patient is with one son. He denies smoking, alcohol drinking, or illicit drug use. CURRENT MEDICATIONS: Spironolactone, insulin, digoxin, vitamin D, primidone for tremor, diltiazem, aspirin, pantoprazole, insulin Humalog, carbidopa/levodopa, insulin Lantus, Eliquis, ropinirole, metoprolol, Lipitor, tramadol, and Tylenol. ALLERGIES: No known drug allergies. REVIEW OF SYSTEMS: A 10-point review of system was performed as mentioned above in history of present illness. PHYSICAL EXAMINATION: GENERAL: Well-developed, well-nourished male, not in acute distress. He weighs 83.6 kilos. VITAL SIGNS: Blood pressure 125/69, respiratory rate 20, pulse is 83 and regular, temperature is 98.2, oxygen saturation is 95% on room air. HEENT: Normocephalic, atraumatic, otherwise unremarkable. NECK: Supple. Negative for carotid bruit, lymphadenopathy or thyromegaly. LUNGS: Clear to A and P. CARDIOVASCULAR: Regular rhythm, normal S1, S2. There is no S3, S4 or murmur. ABDOMEN: Soft. Bowel sounds positive. EXTREMITIES: Negative for cyanosis, clubbing or pitting edema. NEUROLOGICAL EXAM: Mental Status: The patient is alert and oriented x 3. Speech is fluent. There is no language dysfunction. The patient recalls 2/3 immediately and 1/3 after 1 and 3 minutes. Judgment and abstracting thinking are fair. The patient denies hallucination or delusion. CRANIAL NERVES: Visual farris are full. The pupils are reactive to light and accommodation. The extraocular movements are intact. There is no nystagmus. There is no facial motor or sensory deficit. Hearing is slightly diminished bilaterally. The palate is elevated symmetrically. Sternocleidomastoid muscles are powerful bilaterally. The patient shrugs his shoulders symmetrically, protrudes his tongue in the midline without fasciculation or atrophy. MOTOR: No focal muscle bulk was seen. The tone is normal. The strength is 4/5 throughout. The patient has resting tremor with normal tone. Resting tremor of the hands. Sensory examination revealed diminished pinprick and light touch senses in patchy distributions in both lower extremities. Deep tendon reflexes were symmetric and hypoactive with absent Achilles responses. Gait: The patient uses a walker for ambulation. LABORATORY DATA: CBC revealed white blood cells of 9.6 thousand, hemoglobin 11.1, hematocrit 34.6, platelet count 224,000. Chemistry revealed sodium of 139, potassium 3.6, chloride 102, CO2 of 29, BUN 10, creatinine 0.7, glucose 73. Lactic acid normal at 1.6, calcium 9. Liver enzymes not elevated. Troponin level is normal with normal cardiac enzymes. BNP is high at 1098. Lipid profile revealed only low HDL at 33, otherwise unremarkable. TSH is normal. Urinalysis negative for urinary tract infections. Urine drug screen is negative. DIAGNOSTIC DATA: A head CT scan revealed no evidence of acute intracranial process, but bilateral small vessel ischemic changes along with atrophy and left maxillary sinus opacification. Carotid Doppler study revealed no evidence of significant stenosis and chest x-ray revealed trace bilateral pleural effusion or thickening. IMPRESSION: 1. Frequent mental status changes with possible syncope as the patient became unresponsive twice and since evaluation to rule out cardiac arrhythmias versus non-convulsive seizure. 2. Parkinson disease, presented with gait disturbances and resting tremor of the upper extremities. 3. Multiple medical problems include paroxysmal atrial fibrillation, hypertension, hyperlipidemia, diabetes mellitus. RECOMMENDATIONS: 1. We will change to carbidopa/levodopa ER 25/100 q.i.d. 2. Continue with ropinirole and primidone. 3. Holter monitor to rule out paroxysmal cardiac arrhythmias. 4. Physical therapy evaluation. M Joseph GONZALEZ MD DR: MARLI/re JOB#: [id number] / [id number]
--- NOTE | 2019-01-01 02:36 | CONS ---
DATE OF CONSULTATION: 12/31/2018 NEUROLOGY CONSULT REFERRING PHYSICIAN: Dr. Howard. REASON FOR CONSULTATION: Mental status changes and possible syncope. HISTORY OF PRESENT ILLNESS: This is a 73-year-old right-handed male who was admitted through Emergency Room after he was found in a nursing facility unresponsive. On arrival, EMS was activated. On arrival, the patient was responsive and awake. He denies any headaches, slurred speech, weakness or paresthesia. On his way to Emergency Room, the patient had another episode of unresponsiveness lasted a few minutes. He did not recall those events. However, on arrival to Emergency Room, the patient was alert and oriented without any weakness, slurry speech or visual disturbances. EKG was performed and revealed pulse of 68 without acute changes. Initial nonenhanced head CT scan revealed bilateral chronic microvascular ischemic disease. Currently, the patient denies any new neurological complaints. PAST MEDICAL HISTORY: Significant for syncope, diabetes mellitus, dysphagia, hyperlipidemia, Parkinson disease with resting tremor, intermittent memory loss, hypertension, history of paroxysmal atrial fibrillations, congestive heart failure, and unsteady gait for which he uses a walker. PAST SURGICAL HISTORY: Thyroidectomy, cataract extraction and cholecystectomy. FAMILY HISTORY: Noncontributory. SOCIAL HISTORY: The patient is with one son. He denies smoking, alcohol drinking, or illicit drug use. CURRENT MEDICATIONS: Spironolactone, insulin, digoxin, vitamin D, primidone for tremor, diltiazem, aspirin, pantoprazole, insulin Humalog, carbidopa/levodopa, insulin Lantus, Eliquis, ropinirole, metoprolol, Lipitor, tramadol, and Tylenol. ALLERGIES: No known drug allergies. REVIEW OF SYSTEMS: A 10-point review of system was performed as mentioned above in history of present illness. PHYSICAL EXAMINATION: GENERAL: Well-developed, well-nourished male, not in acute distress. He weighs 83.6 kilos. VITAL SIGNS: Blood pressure 125/69, respiratory rate 20, pulse is 83 and regular, temperature is 98.2, oxygen saturation is 95% on room air. HEENT: Normocephalic, atraumatic, otherwise unremarkable. NECK: Supple. Negative for carotid bruit, lymphadenopathy or thyromegaly. LUNGS: Clear to A and P. CARDIOVASCULAR: Regular rhythm, normal S1, S2. There is no S3, S4 or murmur. ABDOMEN: Soft. Bowel sounds positive. EXTREMITIES: Negative for cyanosis, clubbing, pitting edema. NEUROLOGICAL EXAM: Mental Status: The patient is alert and oriented x 3. Speech is fluent. There is no language dysfunction. The patient recalls 2/3 immediately and 1/3 after 1 and 3 minutes. Judgment and abstracting thinking are fair. The patient denies hallucination or delusion. CRANIAL NERVES: Visual farris are full. The pupils are reactive to light and accommodation. The extraocular movements are intact. There is no nystagmus. There is no facial motor or sensory deficit. Hearing is slightly diminished bilaterally. The palate is elevated symmetrically. Sternocleidomastoid muscles are powerful bilaterally. The patient shrugs his shoulders symmetrically, protrudes his tongue in the midline without fasciculation or atrophy. MOTOR: No focal muscle bulk was seen. The tone is normal. The strength is 4/5 throughout. The patient has resting tremor of the hands. Sensory examination revealed diminished pinprick and light touch senses in patchy distributions in both lower extremities. Deep tendon reflexes were symmetric and hypoactive with absent Achilles responses. Gait: The patient uses a walker for ambulation. LABORATORY DATA: CBC revealed white blood cells of 9.6 thousand, hemoglobin 11.1, hematocrit 34.6, platelet count 224,000. Chemistry revealed sodium of 139, potassium 3.6, chloride 102, CO2 of 29, BUN 18, creatinine 0.7, glucose 73. Lactic acid was normal at 1.6, calcium 9. Liver enzymes not elevated. Troponin level is normal with normal cardiac enzymes, but BNP is high at 1098. Lipid profile revealed only low HDL at 33, otherwise unremarkable. TSH is normal. Urinalysis negative for urinary tract infections. Urine drug screen is negative. DIAGNOSTIC DATA: A head CT scan revealed no evidence of acute intracranial process, but bilateral small vessel ischemic changes along with atrophy and left maxillary sinus opacification. Carotid Doppler study revealed no evidence of significant stenosis and chest x-ray revealed trace of bilateral pleural effusion or thickening. IMPRESSION: 1. Frequent mental status changes with possible syncope as the patient became unresponsive twice since evaluation, rule out cardiac arrhythmias versus non-convulsive seizure. 2. Parkinson disease, presented with gait disturbances and resting tremor of the upper extremities. 3. Multiple medical problems include paroxysmal atrial fibrillation, hypertension, hyperlipidemia, diabetes mellitus. RECOMMENDATIONS: 1. We will change to carbidopa/levodopa ER 25/100 q.i.d. 2. Continue with propranolol and primidone. 3. Holter monitor to rule out paroxysmal cardiac arrhythmias. 4. Physical therapy evaluation. M Josehp GONZALEZ MD DR: MARLI/re JOB#: [id number] / [id number]
[2019-01-01 06:06] VITALS: BP 103/60
[2019-01-01 06:45] LABS: HEMATOCRIT 30.7 % (39.0-53.0); HEMOGLOBIN 9.9 g/dL (13.0-17.5); RED BLOOD COUNT 3.64 x10^6/uL (4.30-5.70); RED CELL DISTRIBUTION WIDTH 19.7 % (11.5-14.5); WHITE BLOOD COUNT 7.4 x10^3/uL (4.0-11.0)
[2019-01-01 06:58] LABS: ALBUMIN 2.4 g/dL (3.4-5.0); ALBUMIN/GLOBULIN RATIO 0.6 (1.0-1.7); CALCIUM 8.8 mg/dL (8.5-10.1); CREATININE 0.6 mg/dL (0.7-1.3); GFR 132.4; POTASSIUM 4.5 mmol/L (3.5-5.1); TOTAL BILIRUBIN 0.3 mg/dL (0.2-1.0); TOTAL PROTEIN 6.7 g/dL (6.4-8.2)
[2019-01-01] MEDS: INSULIN LISPRO 300 UNITS/3 ML VIAL. SQ SCH ×5 (07:30→15:31)
--- NOTE | 2019-01-01 08:25 | PDOC ---
CARDIO Progress Notes Date & Time Date of Service DATE: 01/01/19 TIME: 08:23 Time of Evaluation 08:23 Subjective Notes No dizziness/syncope, chest pain, palpitations, SOA. Vitals Vitals Vital Signs Date Time Temp Pulse Resp B/P (MAP) Pulse Ox O2 Delivery O2 Flow Rate FiO2 01/01/19 06:06 97.8 95 20 103/60 (74) 99 Room Air Weight Weight [ ] Input and Output I.O. Intake and Output 01/01/19 07:00 Intake Total 1400 ml Balance 1400 ml Intake Oral 1400 ml # Bowel Movements 2 Laboratory Labs Laboratory Tests Test 12/30/18 12:23 12/30/18 12:26 12/30/18 14:05 12/30/18 17:00 Glucose (Fingerstick) 73 mg/dL (70-99) White Blood Count 9.6 x10^3/uL (4.0-11.0) Red Blood Count 4.06 x10^6/uL (4.30-5.70) Hemoglobin 11.1 g/dL (13.0-17.5) Hematocrit 34.6 % (39.0-53.0) Mean Corpuscular Volume 85 fL (79-100) Mean Corpuscular Hemoglobin 27 pg (25-35) Mean Corpuscular Hemoglobin Concent 32 g/dL (31-37) Red Cell Distribution Width 19.7 % (11.5-14.5) Platelet Count 224 x10^3/uL (140-400) Neutrophils (%) (Auto) 68 % (31-73) Lymphocytes (%) (Auto) 19 % (24-48) Monocytes (%) (Auto) 11 % (0-9) Eosinophils (%) (Auto) 2 % (0-3) Basophils (%) (Auto) 0 % (0-3) Neutrophils # (Auto) 6.6 x10^3uL (1.8-7.7) Lymphocytes # (Auto) 1.8 x10^3/uL (1.0-4.8) Monocytes # (Auto) 1.1 x10^3/uL (0.0-1.1) Eosinophils # (Auto) 0.2 x10^3/uL (0.0-0.7) Basophils # (Auto) 0.0 x10^3/uL (0.0-0.2) Prothrombin Time 11.5 SEC (9.4-11.4) Prothromb Time International Ratio 1.1 (0.9-1.1) Activated Partial Thromboplast Time 34 SEC (23-33) Sodium Level 139 mmol/L (136-145) Potassium Level 3.6 mmol/L (3.5-5.1) Chloride Level 102 mmol/L (98-107) Carbon Dioxide Level 29 mmol/L (21-32) Anion Gap 8 (6-14) Blood Urea Nitrogen 10 mg/dL (8-26) Creatinine 0.7 mg/dL (0.7-1.3) Estimated GFR (Cockcroft-Gault) 110.9 BUN/Creatinine Ratio 14 (6-20) Glucose Level 73 mg/dL (70-99) Calcium Level 9.0 mg/dL (8.5-10.1) Total Bilirubin 0.6 mg/dL (0.2-1.0) Aspartate Amino Transf (AST/SGOT) 15 U/L (15-37) Alanine Aminotransferase (ALT/SGPT) < 6 U/L (16-63) Alkaline Phosphatase 55 U/L (46-116) Troponin I Quantitative < 0.017 ng/mL (0-0.055) < 0.017 ng/mL (0-0.055) Total Protein 7.6 g/dL (6.4-8.2) Albumin 2.8 g/dL (3.4-5.0) Albumin/Globulin Ratio 0.6 (1.0-1.7) Urine Collection Type Unknown Urine Color Yellow Urine Clarity Clear Urine pH 6.5 Urine Specific Exchange 1.010 Urine Protein Neg (NEG-TRACE) Urine Glucose (UA) Neg mg/dL (NEG) Urine Ketones (Stick) Neg mg/dL (NEG) Urine Blood Neg (NEG) Urine Nitrite Neg (NEG) Urine Bilirubin Neg (NEG) Urine Urobilinogen Dipstick 1 mg/dL (0.2 mg/dL) Urine Leukocyte Esterase Neg (NEG) Urine RBC 0 /HPF (0-2) Urine WBC 1-4 /HPF (0-4) Urine Squamous Epithelial Cells None /LPF Urine Bacteria 0 /HPF (0-FEW) Urine Mucus Slight /LPF Test 12/30/18 17:03 12/30/18 21:33 12/31/18 07:37 12/31/18 11:24 Glucose (Fingerstick) 79 mg/dL (70-99) 187 mg/dL (70-99) 152 mg/dL (70-99) 167 mg/dL (70-99) Test 12/31/18 16:38 12/31/18 20:50 12/31/18 21:13 12/31/18 21:55 Glucose (Fingerstick) 71 mg/dL (70-99) 55 mg/dL (70-99) 50 mg/dL (70-99) 100 mg/dL (70-99) Test 01/01/19 06:27 01/01/19 07:28 White Blood Count 7.4 x10^3/uL (4.0-11.0) Red Blood Count 3.64 x10^6/uL (4.30-5.70) Hemoglobin 9.9 g/dL (13.0-17.5) Hematocrit 30.7 % (39.0-53.0) Mean Corpuscular Volume 84 fL (79-100) Mean Corpuscular Hemoglobin 27 pg (25-35) Mean Corpuscular Hemoglobin Concent 32 g/dL (31-37) Red Cell Distribution Width 19.7 % (11.5-14.5) Platelet Count 213 x10^3/uL (140-400) Sodium Level 142 mmol/L (136-145) Potassium Level 4.5 mmol/L (3.5-5.1) Chloride Level 104 mmol/L (98-107) Carbon Dioxide Level 28 mmol/L (21-32) Anion Gap 10 (6-14) Blood Urea Nitrogen 14 mg/dL (8-26) Creatinine 0.6 mg/dL (0.7-1.3) Estimated GFR (Cockcroft-Gault) 132.4 BUN/Creatinine Ratio 23 (6-20) Glucose Level 168 mg/dL (70-99) Calcium Level 8.8 mg/dL (8.5-10.1) Total Bilirubin 0.3 mg/dL (0.2-1.0) Aspartate Amino Transf (AST/SGOT) 13 U/L (15-37) Alanine Aminotransferase (ALT/SGPT) 6 U/L (16-63) Alkaline Phosphatase 45 U/L (46-116) Total Protein 6.7 g/dL (6.4-8.2) Albumin 2.4 g/dL (3.4-5.0) Albumin/Globulin Ratio 0.6 (1.0-1.7) Glucose (Fingerstick) 137 mg/dL (70-99) Physical Exams HEENT: Neck Supple W Full Motion Chest: Symmetric Lungs: Clear to Auscultation Heart: S1S2, irregularly irregular (rate controlled ), other (2/6 systolic murmur) Abdomen: Soft N/T Extremities: No Edema Neurology: alert, follow commands Assessment Assessment 1. Syncope, unresponsive event. Etiology unclear. No acute event on tele noted. Echo with preserved LV systolic function 2. Chronic AFIB; on Eliquis therapy. Rate controlled with dig and Cardizem 3. Hypertension; controlled 4. Hyperlipidemia; statin 5. Diabetes, II 6. H/o PE 7. Parkinson's Recommendations Cardizem and Dig for rate control Continue Eliquis for stroke prophylaxis. Will plan for outpatient loop recorder placement given recurrent syncope May discharge from a CV standpoint. ROLAN LUU APRN Jan 01, 2019 08:25
--- NOTE | 2019-01-01 08:28 | CARD ---
MR#: [id number] Date of Study: 12/31/2018 Ordering Physician: ROLAN LUU, Referring Physician: ROLAN LUU, Tech: Claudia Sims APPROVED REPORT EXAM: Two-dimensional and M-mode echocardiogram with Doppler and color Doppler. Other Information Quality : AverageHR: 75bpm INDICATION Chest Pain Syncope 2D DIMENSIONS RVDd4.0 (2.9-3.5cm)Left Atrium(2D)4.5 (1.6-4.0cm) IVSd1.5 (0.7-1.1cm)Aortic Root(2D)3.4 (2.0-3.7cm) LVDd5.9 (3.9-5.9cm)LVOT Diameter2.1 (1.8-2.4cm) PWd1.3 (0.7-1.1cm)LVDs3.9 (2.5-4.0cm) FS (%) 32.9 %SV104.0 ml LVEF(%)60.6 (>50%) Aortic Valve AoV Peak Jax.184.6cm/sAoV VTI36.8cm AO Peak GR.13.6mmHgLVOT Peak Jax.102.5cm/s LVOT VTI 17.60cmAO Mean GR.8mmHg MILLICENT (VMAX)1.28jf6HQK (VTI)1.64cm2 Mitral Valve MV E Peak Gr.5mmHgMV E Mean Gr.2mmHg Tricuspid Valve TR P. Vwgsfjji732yb/sRAP FGKCSTKB2lwBh TR Peak Gr.42lhViZBSN09mnWr Pulmonary Vein S1 Jyvnjfiy64.0cm/sD2 Xphlwnwd82.8cm/s LEFT VENTRICLE The left ventricle is normal size. There is moderate concentric left ventricular hypertrophy. The lef t ventricular systolic function is low normal. The Ejection Fraction is 50%. There is normal LV segme ntal wall motion. Diastology indeterminate. RIGHT VENTRICLE The right ventricle is borderline dilated. There is normal right ventricular wall thickness. The righ t ventricular systolic function is normal. ATRIA The left atrium is moderately dilated. The right atrium is moderately dilated. The interatrial septum is intact with no evidence for an atrial septal defect or patent foramen ovale as noted on 2-D or Do ppler imaging. AORTIC VALVE The aortic valve is calcified but opens well. Doppler and Color Flow revealed no significant aortic r egurgitation. There is no significant aortic valvular stenosis. MITRAL VALVE The mitral valve is normal in structure and function. There is no evidence of mitral valve prolapse. There is no mitral valve stenosis. Doppler and Color-flow revealed trace to mild mitral regurgitation . TRICUSPID VALVE The tricuspid valve is normal in structure and function. Doppler and Color Flow revealed mild tricusp id regurgitation with an estimated PAP of 41 mmHg. There is no tricuspid valve prolapse or vegetation . There is no tricuspid valve stenosis. PULMONIC VALVE The pulmonic valve is not well visualized. Doppler and Color Flow revealed trace pulmonic valvular re gurgitation. GREAT VESSELS The aortic root is normal in size. The IVC was not visualized. PERICARDIAL EFFUSION There is no evidence of significant pericardial effusion. Critical Notification Critical Value: No <Conclusion> The left ventricular systolic function is low normal. The Ejection Fraction is 50%. The left atrium is moderately dilated. Trace to mild mitral regurgitation. Mild tricuspid regurgitation with an estimated PAP of 41 mmHg. There is no evidence of significant pericardial effusion. Signed by : Sven Choudhury, Electronically Approved : 01/01/2019 08:27:47
[2019-01-01] MEDS: POLYETHYLENE GLYCOL 3350 17 GM PACKET. PO SCH (08:40)
[2019-01-01] MEDS: CHOLECALCIFEROL (VITAMIN D3) 1,000 UNIT TABLET PO SCH (08:40)
[2019-01-01] MEDS: SPIRONOLACTONE 25 MG TABLET PO SCH (08:41)
[2019-01-01] MEDS: CARBIDOPA/LEVODOPA 25/100MG TABLET PO SCH (08:42)
[2019-01-01] MEDS: PRIMIDONE 50 MG TABLET PO SCH (08:42)
[2019-01-01] MEDS: DIGOXIN 125 MCG TABLET PO SCH (08:42)
[2019-01-01] MEDS: APIXABAN 5 MG TABLET. PO SCH (08:42)
[2019-01-01] MEDS: METOPROLOL TART IMMED RELEASE 50 MG TABLET PO SCH (08:43)
[2019-01-01] MEDS: rOPINIRole 1 MG TABLET. PO SCH ×2 (08:43→12:51)
[2019-01-01] MEDS: PANTOPRAZOLE 40 MG TABLET. PO SCH (08:43)
[2019-01-01] MEDS: ASPIRIN 81 MG TAB.CHEW PO SCH (08:44)
[2019-01-01] MEDS: SODIUM CHLORIDE 0.65% NASAL SPRAY 45ML BOTTLE. NS SCH (08:44)
[2019-01-01] MEDS: INSULIN GLARGINE SYRINGE. SQ SCH (08:58)
[2019-01-01] MEDS: GLYCERIN/WITCH HAZEL TOPICAL PADS 40'S JAR. TP SCH ×2 (09:00→12:51)
--- NOTE | 2019-01-01 10:03 | PN ---
DATE: REFERRING PHYSICIAN: Dr. Howard. SUBJECTIVE: The patient denies any new medical or neurological complaints. He continues to have mild resting tremor of the hands. He denies chest pain, shortness of breath or palpitation. OBJECTIVE: GENERAL: Well-developed, well-nourished male, not in acute distress. VITAL SIGNS: Blood pressure 103/60, respiratory rate 20, pulse is 95, temperature 97.8, oxygen saturation 99% on room air. HEENT: Normocephalic, atraumatic, otherwise unremarkable. NECK: Supple. Negative for carotid bruit, lymphadenopathy or thyromegaly. LUNGS: Clear to A and P. CARDIOVASCULAR: Regular rhythm, normal S1, S2. There is no S3, S4 or murmur. ABDOMEN: Soft. Bowel sounds positive. EXTREMITIES: Negative for cyanosis, clubbing or edema. NEUROLOGICAL EXAM: Mental Status: The patient is alert and oriented x 3. The speech is fluent. There is no language dysfunction. He denies hallucination or delusion. Cranial nerves are intact. No focal motor or sensory deficit. The strength is 4/5 throughout. Sensory examination revealed normal pinprick and light touch senses throughout. The patient has mild resting tremor of both hands consistent with parkinsonism. Deep tendon reflexes were asymmetric and hypoactive with absent Achilles responses. Gait: The patient uses a walker for ambulation. LABORATORY DATA: CBC revealed white blood cells of 7.4 thousand, hemoglobin 9.9, hematocrit 30.7, platelet count 213,000. Chemistry revealed sodium 142, potassium 4.5, chloride 104, CO2 of 28, BUN 14, creatinine 0.6, glucose 137, calcium 8.8. IMPRESSION: 1. Possible recurrent syncopal episode. No recurrence since admission. 2. Parkinson's disease, presented with mild-moderate resting tremor of both hands and gait disturbance. 3. Multiple medical problems including hypertension, hyperlipidemia, diabetes mellitus. 4. History of paroxysmal cardiac arrhythmias. RECOMMENDATIONS: Continue with current management and Holter monitoring to rule out cardiac arrhythmias. The patient is neurologically stable. M Joseph GONZALEZ MD DR: MARLI/re JOB#: [id number] / [id number]
[2019-01-01 10:45] VITALS: BP 98/58
--- NOTE | 2019-01-01 12:23 | NUR ---
Pt is alert and oriented x 4. Pt denies any pain at this time. Applied witch toan pads and eucerin cream to buttocks. Pt asked about switching nasal sprays. Informed pharmacy, pharmacy suggested to utilize nasal spray QID instead of TID. Dr. Hien came to evaluated pt today. Switched pt from Sinemet TID to Sinemet ER QID per 's order. Per Cardiology, pt to attend loop recorder outpatient appointment after discharge. Clinic to call pt to schedule appointment. Bed in lowest position, non-skid socks applied, call light within reach. Pt encouraged to call for assistance to bathroom.
[2019-01-01] MEDS ORDERED: CARBIDOPA/LEVODOPA CR 50/200MG TABLET.SA PO SCH (13:00)
[2019-01-01] MEDS ORDERED: CARBIDOPA/LEVODOPA CR 25/100MG TABLET.SA PO SCH (13:00)
[2019-01-01 15:06] VITALS: BP 125/56
--- NOTE | 2019-01-01 15:34 | NUR ---
1630 Insulin given at 1530 by caring RN. This RN signed insulin after the fact. Blood sugar checked and was 102. Boxed lunch given to patient to eat. Will monitor patient.
--- NOTE | 2019-01-01 18:21 | DS ---
DATE OF DISCHARGE: 01/01/2019 HOSPITAL COURSE: The patient is a 73-year-old male patient, a resident at [facility] who was admitted with recurrent syncopal episode. He was extensively investigated. CT scan of the head was unremarkable. Bilateral carotid Doppler were unremarkable. He has had an echocardiogram done, which showed that his left ventricular systolic function is low normal, ejection fraction is 50%, left atrium is moderately dilated. There is mild mitral regurgitation, mild tricuspid regurgitation with pulmonary artery pressure estimated at 41 mmHg. There is no evidence of significant pericardial effusion. The Cardiology team recommended a loop recorder to be placed as an outpatient. As the patient has remained stable, a decision was made to discharge him back to [facility] with arrangement for him to be seen at the Cardiology office for placement of a loop recorder. PHYSICAL EXAMINATION: GENERAL: When I saw him this afternoon, he was resting slightly propped up in bed, in no apparent respiratory distress. No pallor, jaundice, cyanosis or thyromegaly. No jugular venous distention. No limb edema. VITAL SIGNS: Heart rate was 56, blood pressure was 125/56, temperature was 98.1, respiratory rate was 20, and oxygen saturation was 96%. HEAD, EYES, EARS, NOSE AND THROAT: Showed normocephalic, atraumatic. NECK: Supple. HEART: Showed normal first and second heart sounds. No gallop or murmur. CHEST: Clear to auscultation. No crepitation or rhonchi. ABDOMEN: Distended, soft, nontender. NEUROLOGIC: He is awake, alert, responding appropriately. All cranial nerves intact. He moves extremities without difficulty. He ambulates with a walker. His intake was 1400, no output was recorded. However, he apparently is mostly wheelchair bound. LABORATORY DATA: This morning showed a white cell count 7400, hemoglobin 10, hematocrit 30, MCV 84 and platelet count 213,000. His chemistry this morning showed a serum sodium 142, potassium 4.5, chloride 104, bicarbonate 28, anion gap of 10, BUN 14, creatinine 0.6, estimated GFR was 132 mL, glucose 168, calcium was 8.8. Total bilirubin, AST, ALT, alkaline phosphatase were normal. Total protein 6.7, albumin 2.4. Prothrombin time, INR and aPTT are normal. Urinalysis was essentially unremarkable. DISCHARGE MEDICATIONS: The patient was discharged back to [facility] to continue on all his current medications including apixaban 5 mg twice a day, aspirin 81 mg once a day, atorvastatin calcium 20 mg at bedtime, carbidopa/levodopa 25/100 one tablet 3 times a day, cholecalciferol 5000 International Unit once a day, Ciclodan 0.77% cream applied topically at bedtime for rectal itching, digoxin 250 mcg once a day, diltiazem extended release 120 mg once a day, Mucinex 600 mg twice a day, NovoLog 20 units 3 times a day before meals and Lantus insulin 30 units in the morning and 10 units at bedtime. He is on magnesium hydroxide for milk of magnesia 30 mL p.o. daily p.r.n. for constipation, metoprolol 50 mg twice a day, omeprazole 40 mg daily, ondansetron 4 mg every 6 hours as needed, polyethylene glycol 17 grams daily, brimonidine 50 mg daily, Requip 1.5 mg 3 times a day, sodium chloride spray one spray to each nostril twice a day, spironolactone 50 mg once a day, tramadol 50 mg every 4 hours and Witch Tsering tucks applied topically 3 times a day for rectal itching. FINAL DISCHARGE DIAGNOSES: 1. Recurrent episode of syncope, unresponsiveness, etiology unclear. An event monitor will be arranged for him to be placed as an outpatient. 2. Chronic atrial fibrillation, on Eliquis, rate controlled with digoxin, Cardizem, hypertension, hyperlipidemia, type 2 diabetes, history of PE and Parkinson's disease. CHANG FLOWER MD DR: DAIJA/re JOB#: [id number] / [id number]
[2019-01-01 21:08] LABS: THYROID STIM HORMONE (TSH) 2.76 uIU/mL (0.358-3.740)
== END 2019-01-01 17:44 | DRG 309 ==
LOC: ER 12:12 → 1 SOUTH 14:20
PROVIDERS: ADMIT Internal Medicine; ATTEND Internal Medicine
DX: I49.9 Cardiac arrhythmia, unspecified (principal); I48.20 Chronic atrial fibrillation, unspecified; I50.42 Chronic combined systolic (congestive) and diastolic (congestive) heart failure; R47.01 Aphasia; I48.21 Permanent atrial fibrillation; G20 Parkinson's disease; Z90.49 Acquired absence of other specified parts of digestive tract; Z86.73 Personal history of transient ischemic attack (TIA), and cerebral infarction without residual deficits; E78.5 Hyperlipidemia, unspecified; I11.0 Hypertensive heart disease with heart failure; Z79.01 Long term (current) use of anticoagulants; Z86.711 Personal history of pulmonary embolism; Z79.4 Long term (current) use of insulin; Z98.42 Cataract extraction status, left eye; Z98.41 Cataract extraction status, right eye; E11.9 Type 2 diabetes mellitus without complications; E89.0 Postprocedural hypothyroidism; I08.1 Rheumatic disorders of both mitral and tricuspid valves; D64.9 Anemia, unspecified
CPT/HCPCS: 36415; 70450; 71045; 80053; 80061; 81001; 82947; 84443; 84484; 85025; 85027; 85610; 85730; 93005; 93306; 93880; 96374; J1815; J1885; 92610; 97110; 97530; 97535; 99291-25

== ENCOUNTER 2019-02-16 13:56 | Observation (INO) | payer MEDICARE, OTHER ==
[~2019-02-16] VITALS: Ht 185.4 cm; Wt 88.0 kg
[~2019-02-16 13:56] MED LIST changes: +ACET325T21 PO; +APIX5TAB5 PO; +ASPI81TA59 PO; +CICL544C TP; +DIGO250T PO; +DILT120C99 PO; +DILT60TA PO; +GUAI600T47 PO; +INSU100I13 SQ; +LANO250L TP; +MAGN400O7 PO; +ONDA4TAB7 PO; +POLY17PO5 PO; +POLY500W3 MC; +SODI44SP NS; +SPIR50TA4 PO; +TRAM-48 PO; +WITC1MED18 TP
[2019-02-16] MEDS ORDERED: METO25TA4 PO (14:49)
[2019-02-16] MEDS ORDERED: ESCITALOPRAM OX10 MG PO (14:49)
[2019-02-16 14:51] LABS: BASO % 0 % (0-3); EOS # 0.1 x10^3/uL (0.0-0.7); EOS % 1 % (0-3); HEMATOCRIT 34.3 % (39.0-53.0); HEMOGLOBIN 11.4 g/dL (13.0-17.5); LYMPH # 1.5 x10^3/uL (1.0-4.8); LYMPH % 20 % (24-48); MEAN CORPUSCULAR HEMOGLOBIN 28 pg (25-35); MEAN CORPUSCULAR HGB CONC 33 g/dL (31-37); MEAN CORPUSCULAR VOLUME 83 fL (79-100); MONO # 0.6 x10^3/uL (0.0-1.1); MONO % 8 % (0-9); NEUT # 5.3 x10^3uL (1.8-7.7); NEUT % 70 % (31-73); PLATELET COUNT 199 x10^3/uL (140-400); RED BLOOD COUNT 4.11 x10^6/uL (4.30-5.70); RED CELL DISTRIBUTION WIDTH 17.9 % (11.5-14.5); WHITE BLOOD COUNT 7.5 x10^3/uL (4.0-11.0)
[2019-02-16 14:57] LABS: CALCIUM 9.2 mg/dL (8.5-10.1); CREATININE 0.8 mg/dL (0.7-1.3); POTASSIUM 4.1 mmol/L (3.5-5.1)
--- NOTE | 2019-02-16 15:00 | RAD ---
EXAM: Chest, single view. HISTORY: Weakness. COMPARISON: 12/30/2018 FINDINGS: A frontal view of the chest is obtained. There is no infiltrate, pleural effusion or pneumothorax. The heart is normal in size. IMPRESSION: No acute pulmonary finding. Electronically signed by: Lila Esposito MD (02/16/2019 2:57 PM) [facility]
[2019-02-16 15:10] LABS: ALBUMIN 2.9 g/dL (3.4-5.0); ALBUMIN/GLOBULIN RATIO 0.7 (1.0-1.7); MAGNESIUM 1.8 mg/dL (1.8-2.4); TOTAL BILIRUBIN 0.3 mg/dL (0.2-1.0); TOTAL PROTEIN 6.8 g/dL (6.4-8.2)
--- NOTE | 2019-02-16 15:40 | PHYS DOC ---
Past History Past Medical History: A-Fib, CHF, Diabetes, High Cholesterol, Hypertension, Other Additional Past Medical Histor: PARKINSONS, DYSPHAGIA, Past Surgical History: Cholecystectomy Additional Past Surgical Histo: UNKNOWN SURGICAL HX Alcohol Use: None Drug Use: None Adult General Chief Complaint Chief Complaint: ALTERED MENTAL STATUS [facility] HPI Patient is a 73-year-old male who arrives via EMS with report of hypotension and bradycardia at nursing facility. Patient reportedly is a full code but he is also on hospice. EMS reports that patient had wanted to come into the hospital to be evaluated and reportedly wanted to be worked up and treated if necessary. Per nursing staff, eligibility technician had given dose of beta andreina this morning despite having heart rate of 52. Patient denies any chest pain or shortness of breath. He does admit to lower back pain but states that that is chronic.[] Review of Systems Review of Systems Constitutional: Denies fever or chills [] Respiratory: Denies shortness of breath [] Cardiovascular: No additional information not addressed in HPI [] GI: Denies abdominal pain, vomiting or diarrhea [] Musculoskeletal: Complains of lower back pain [] Integument: Denies rash or skin lesions [] All other systems were reviewed and found to be within normal limits, except as documented in this note. Allergies Allergies Allergies Coded Allergies Type Severity Reaction Last Updated Verified No Known Drug Allergies 07/13/14 No Physical Exam Physical Exam Constitutional: Well developed, well nourished, no acute distress, non-toxic appearance. [] HENT: Normocephalic, atraumatic, bilateral external ears normal, oropharynx moist, no oral exudates, nose normal. [] Eyes: PERRLA, EOMI, conjunctiva normal, no discharge. [] Neck: Normal range of motion, no tenderness, supple, no stridor. [] Cardiovascular: Bradycardic rate with regular rhythm[] Lungs & Thorax: Bilateral breath sounds clear to auscultation [] Abdomen: Bowel sounds normal, soft, no tenderness. [] Skin: Warm, dry, no erythema, no rash. [] Extremities: No tenderness, no cyanosis, no clubbing, ROM intact. [] Neurologic: Alert and oriented X 3, no focal deficits noted. [] Current Patient Data Vital Signs Vital Signs Date Time Temp Pulse Resp B/P (MAP) Pulse Ox O2 Delivery O2 Flow Rate FiO2 02/16/19 14:31 98.4 48 20 100 Room Air Lab Results Laboratory Tests Test 02/16/19 14:34 White Blood Count 7.5 x10^3/uL (4.0-11.0) Red Blood Count 4.11 x10^6/uL (4.30-5.70) L Hemoglobin 11.4 g/dL (13.0-17.5) L Hematocrit 34.3 % (39.0-53.0) L Mean Corpuscular Volume 83 fL (79-100) Mean Corpuscular Hemoglobin 28 pg (25-35) Mean Corpuscular Hemoglobin Concent 33 g/dL (31-37) Red Cell Distribution Width 17.9 % (11.5-14.5) H Platelet Count 199 x10^3/uL (140-400) Neutrophils (%) (Auto) 70 % (31-73) Lymphocytes (%) (Auto) 20 % (24-48) L Monocytes (%) (Auto) 8 % (0-9) Eosinophils (%) (Auto) 1 % (0-3) Basophils (%) (Auto) 0 % (0-3) Neutrophils # (Auto) 5.3 x10^3uL (1.8-7.7) Lymphocytes # (Auto) 1.5 x10^3/uL (1.0-4.8) Monocytes # (Auto) 0.6 x10^3/uL (0.0-1.1) Eosinophils # (Auto) 0.1 x10^3/uL (0.0-0.7) Basophils # (Auto) 0.0 x10^3/uL (0.0-0.2) Sodium Level 141 mmol/L (136-145) Potassium Level 4.1 mmol/L (3.5-5.1) Chloride Level 105 mmol/L (98-107) Carbon Dioxide Level 30 mmol/L (21-32) Anion Gap 6 (6-14) Blood Urea Nitrogen 14 mg/dL (8-26) Creatinine 0.8 mg/dL (0.7-1.3) Estimated GFR (Cockcroft-Gault) 95.0 BUN/Creatinine Ratio 18 (6-20) Glucose Level 84 mg/dL (70-99) Calcium Level 9.2 mg/dL (8.5-10.1) Magnesium Level 1.8 mg/dL (1.8-2.4) Total Bilirubin 0.3 mg/dL (0.2-1.0) Aspartate Amino Transferase (AST) 17 U/L (15-37) Alanine Aminotransferase (ALT) 12 U/L (16-63) L Alkaline Phosphatase 59 U/L (46-116) JU-Bus-P-Type Natriuretic Peptide 1130 pg/mL (0-124) H Total Protein 6.8 g/dL (6.4-8.2) Albumin 2.9 g/dL (3.4-5.0) L Albumin/Globulin Ratio 0.7 (1.0-1.7) L EKG EKG [] Radiology/Procedures Radiology/Procedures [] Impressions: PROCEDURE: PORTABLE CHEST 1V EXAM: Chest, single view. HISTORY: Weakness. COMPARISON: 12/30/2018 FINDINGS: A frontal view of the chest is obtained. There is no infiltrate, pleural effusion or pneumothorax. The heart is normal in size. IMPRESSION: No acute pulmonary finding. Electronically signed by: Lila Esposito MD (02/16/2019 2:57 PM) [facility] Course & Med Decision Making Course & Med Decision Making Pertinent Labs and Imaging studies reviewed. (See chart for details) [] Dragon Disclaimer Dragon Disclaimer This electronic medical record was generated, in whole or in part, using a voice recognition dictation system. Departure Departure: Impression: Primary Impression: Bradycardia Disposition: ADMITTED INPATIENT Admitting Physician: Lucia Howard Condition: IMPROVED Referrals: JOJO GUNTER (PCP) GEMA DICKENS Jr. DO Feb 16, 2019 15:40
[2019-02-16] MEDS: IV NORMAL SALINE 1,000ML 1,000 ML IV SCH (16:54)
--- NOTE | 2019-02-16 16:57 | EKG ---
[address] [address] Test Date: 2019-02-16 Test Time: 14:02:44 Pat Name: JUAN MARTINEZ Department: Room: Gender: M Boot Turner: : 1945 Requested By: GEMA DICKENS Order Number: [id number] Reading MD: Measurements Intervals [place] Rate: 64 P: [place]: QRS: -18 QRSD: 106 T: 21 QT: 434 QTc: 452 Interpretive Statements IRREGULAR RHYTHM, NO P-WAVE FOUND LEFTWARD AXIS LEFT VENTRICULAR HYPERTROPHY QRS(T) CONTOUR ABNORMALITY CONSIDER ANTEROLATERAL MYOCARDIAL DAMAGE CONSISTENT WITH INFERIOR INFARCT PROBABLY OLD ABNORMAL ECG RI6.01 No previous ECG available for comparison
[2019-02-16] MEDS ORDERED: MORPHINE SULFATE 2 MG/ML DISP.SYRIN. IV PRN (17:00)
[2019-02-16] MEDS ORDERED: ONDANSETRON PF 4 MG/2 ML VIAL. IV PRN (17:00)
--- NOTE | 2019-02-16 18:15 | NUR ---
The patient, JUAN MARTINEZ, 73 y/o, M admitted by CHANG FLOWER MD, was given written information regarding hospital policies, unit procedures and contact persons. Valuables were checked and left in room. Patient arrived to ICU 2, alert and oriented x3 and able to make needs known. Denies complaints at this time nor any pain or discomfort. Per [facility] patient was given Metoprolol when HR was in the 50s, patient then became lethargic and HR was in the 30-40s. Patients VSS upon arrival to unit. Spoke with Dr Flower, no orders at this time except to continue IV fluids. Per patient he is on Hospice and remains a full code. Will consult case management and spiritual services.
[2019-02-16 18:43] VITALS: BP 111/63
[2019-02-16] MEDS ORDERED: INSU100I13 SQ (20:37)
[2019-02-16] MEDS ORDERED: LOPE2TAB27 PO (20:37)
[2019-02-16] MEDS ORDERED: INSU100V31 SQ (20:37)
[2019-02-16] MEDS ORDERED: ACETAMINOPHEN 325 MG TABLET PO PRN (21:30)
[2019-02-16] MEDS ORDERED: traMADol 50 MG TABLET PO PRN (21:30)
[2019-02-16] MEDS ORDERED: MAGNESIUM HYDROXIDE 2,400 MG/30 ML ORAL.SUSP. PO PRN (21:30)
[2019-02-16] MEDS: rOPINIRole 1 MG TABLET. PO SCH (21:49)
[2019-02-16] MEDS: METOPROLOL TART IMMED RELEASE 25 MG TABLET PO SCH (21:50)
[2019-02-16] MEDS: CARBIDOPA/LEVODOPA 25/100MG TABLET PO SCH (21:51)
[2019-02-16] MEDS ORDERED: ONDANSETRON ODT 4 MG TAB.RAPDIS PO PRN (22:00)
[2019-02-16] MEDS ORDERED: DEXTROSE 50% 25 GM / 50ML DISP.SYRIN. IV PRN (22:00)
[2019-02-16] MEDS ORDERED: MINERAL OIL/PETROLATUM TOPICAL CREAM 113GM JAR. TP SCH (22:00)
[2019-02-16] MEDS ORDERED: LOPERAMIDE 2 MG CAPSULE PO PRN (22:00)
[2019-02-16] MEDS ORDERED: INSULIN GLARGINE SYRINGE. SQ SCH (22:00)
[2019-02-16] MEDS ORDERED: ATORVASTATIN CALCIUM 20 MG TABLET PO SCH (22:00)
[2019-02-16 23:00] VITALS: BP 112/70
[2019-02-17] MEDS: IV NORMAL SALINE 1,000ML 1,000 ML IV SCH (05:42)
--- NOTE | 2019-02-17 06:04 | NUR ---
Shift Note: Pt is a/o x4, VSS (no further bradycardia), no c/o pain or n/v at this time, no c/o dizziness, tremors noted in bilateral upper extremities d/t parkinsons, pt continent of bladder throughout the night, pt up with one person and walker assist to BSC, IV infusing this am as ordered.
[2019-02-17 06:18] LABS: BASO % 0 % (0-3); EOS # 0.1 x10^3/uL (0.0-0.7); EOS % 1 % (0-3); HEMATOCRIT 33.7 % (39.0-53.0); LYMPH # 1.5 x10^3/uL (1.0-4.8); LYMPH % 20 % (24-48); MEAN CORPUSCULAR HEMOGLOBIN 27 pg (25-35); MEAN CORPUSCULAR HGB CONC 33 g/dL (31-37); MEAN CORPUSCULAR VOLUME 84 fL (79-100); MONO # 0.6 x10^3/uL (0.0-1.1); MONO % 7 % (0-9); NEUT # 5.6 x10^3uL (1.8-7.7); NEUT % 72 % (31-73); PLATELET COUNT 187 x10^3/uL (140-400); RED CELL DISTRIBUTION WIDTH 17.5 % (11.5-14.5); WHITE BLOOD COUNT 7.9 x10^3/uL (4.0-11.0)
[2019-02-17 06:25] LABS: CALCIUM 8.9 mg/dL (8.5-10.1); CREATININE 0.6 mg/dL (0.7-1.3); GFR 132.4; POTASSIUM 3.8 mmol/L (3.5-5.1)
[2019-02-17 07:00] VITALS: BP 104/64
[2019-02-17] MEDS ORDERED: PANTOPRAZOLE 40 MG TABLET. PO SCH (07:30)
[2019-02-17] MEDS: INSULIN LISPRO 300 UNITS/3 ML VIAL. SQ SCH ×4 (07:43→12:02)
[2019-02-17] MEDS ORDERED: INSULIN GLARGINE SYRINGE. SQ SCH (08:00)
[2019-02-17] MEDS ORDERED: APIXABAN 5 MG TABLET. PO SCH (09:00)
[2019-02-17] MEDS ORDERED: NON FORMULARY ITEM (Insulin Aspart (Novolog) 0 UNIT) SQ SCH (09:00)
[2019-02-17] MEDS ORDERED: CITALOPRAM 20 MG TABLET. PO SCH (09:00)
[2019-02-17] MEDS ORDERED: SPIRONOLACTONE 25 MG TABLET PO SCH (09:00)
[2019-02-17] MEDS: METOPROLOL TART IMMED RELEASE 25 MG TABLET PO SCH (09:00)
[2019-02-17] MEDS ORDERED: ASPIRIN 81 MG TAB.CHEW PO SCH (09:00)
[2019-02-17] MEDS ORDERED: CHOLECALCIFEROL (VITAMIN D3) 1,000 UNIT TABLET PO SCH (09:00)
[2019-02-17] MEDS ORDERED: PRIMIDONE 50 MG TABLET PO SCH (09:00)
[2019-02-17] MEDS ORDERED: DIGOXIN 125 MCG TABLET PO SCH (09:00)
[2019-02-17] MEDS ORDERED: POLYETHYLENE GLYCOL 3350 17 GM PACKET. PO SCH (09:00)
[2019-02-17] MEDS: CARBIDOPA/LEVODOPA 25/100MG TABLET PO SCH ×2 (11:47→15:41)
[2019-02-17] MEDS: rOPINIRole 1 MG TABLET. PO SCH ×2 (11:49→15:42)
[2019-02-17 11:57] VITALS: BP 113/65
[2019-02-17 15:00] VITALS: BP 113/72
--- NOTE | 2019-02-17 17:18 | SSS ---
ADMIT DATE: HISTORY OF PRESENT ILLNESS: The patient is a 73-year-old male patient, a resident at [facility], who was brought by EMS with the report of hypertension and bradycardia at nursing facility. The patient reportedly is a full code. He is also on hospice. EMS reports the patient had wanted to come to the hospital to be evaluated and reportedly wanted to be worked up and treated if necessary. The nursing staff ____ had given dose of beta-andreina this morning despite a heart rate that is below 52. The patient denied any chest pain or shortness of breath. He does admit to lower back pain, but states that this is chronic. He was evaluated in the Emergency Room and his heart rate on arrival was 48, blood pressure was 103/58, temperature was 98, and respiratory rate 20 and the patient was admitted to the ICU and was started on IV fluid in the form of normal saline. We held all his calcium channel andreina, beta-blockers, as well as digoxin. The patient did very well. PHYSICAL EXAMINATION: GENERAL: By the time I saw him this afternoon, his heart rate was 80, blood pressure 119/73, temperature was 98, respiratory rate 20, and oxygen saturation was 98% on room air. HEAD, EYES, EARS, NOSE, AND THROAT: Showed normocephalic and atraumatic. NECK: Supple. HEART: Normal first and second heart sounds. No gallop or murmur. CHEST: Clear to auscultation. No crepitation or rhonchi. ABDOMEN: Distended, soft, and nontender. NEUROLOGICAL: He is awake, alert, and responding appropriately. With blood pressure, it is orthostatic, and there is no evidence of postural hypertension, by the time we decided to discharge him back to [facility]. LABORATORY WORK: This morning showed a white cell count 7900, hemoglobin 11, hematocrit 33, MCV 84, and platelet count of 187,000. His chemistry showed a serum sodium of 143, potassium 3.8, chloride 106, bicarbonate 29, anion gap of 8, BUN 14, and creatinine 0.6. Estimated GFR was 132 mL per minute. His glucose was 102 and calcium was 8.9. He was discharged back to [facility] to continue on all his medication including digoxin 250 mcg once a day and diltiazem 120 mg once a day. We have discontinued his beta-blockers. Continue with all other medication. I will put parameters for the calcium channel blockers. The patient should not receive any digoxin or diltiazem if the heart rate is less than or equal to 60. FINAL DISCHARGE DIAGNOSES: Syncope that is drug induced and lethargy. Other medical problems include hypertension, hyperlipidemia, type 2 diabetes, history of PE and Parkinson's disease. CHANG FLOWER MD DR: DAIJA/re JOB#: [id number] / [id number]
--- NOTE | 2019-02-17 17:46 | NUR ---
Discharge Note: JUAN MARTINEZ Discharge instructions and discharge home medications reviewed with Patient and a copy given. All questions have been answered and understanding verbalized. The following instructions and handouts were given: Discharge instructions. Discontinued lines and drains: yes Patient discharged to [facility], place of residence.
[2019-02-17] MEDS ORDERED: CICLOPIROX 0.77% TOPICAL CREAM 15GM TUBE. TP SCH (21:00)
== END 2019-02-17 16:00 ==
LOC: ER 13:56 → ICU 18:10 → INTOOBSV 18:10
PROVIDERS: ADMIT Internal Medicine; ATTEND Internal Medicine
DX: R55 Syncope and collapse (principal); R00.1 Bradycardia, unspecified; I11.0 Hypertensive heart disease with heart failure; I50.9 Heart failure, unspecified; E78.5 Hyperlipidemia, unspecified; E11.9 Type 2 diabetes mellitus without complications; G20 Parkinson's disease; Z86.711 Personal history of pulmonary embolism; Z90.49 Acquired absence of other specified parts of digestive tract
CPT/HCPCS: 36415; 71045; 80048; 80053; 82947; 83735; 83880; 85025; 93005; 96360; 96361; 96372; 97166; 99284; G0378; J1815; G0379; J7030

== ENCOUNTER 2019-08-31 12:56 | Observation (INO) | payer OTHER ==
[~2019-08-31] VITALS: Ht 185.4 cm; Wt 104.2 kg
[~2019-08-31 12:56] MED LIST changes: +ESCITALOPRAM OX10 MG PO; +INSU100V31 SQ; +LOPE2TAB27 PO; -ROPI1TAB2 PO; +ROPI1TAB4 PO
[2019-08-31] MEDS ORDERED: IV NORMAL SALINE 500ML 500 ML IV SCH (13:15)
--- NOTE | 2019-08-31 13:15 | PHYS DOC ---
Past History Past Medical History: A-Fib, CHF, Diabetes, High Cholesterol, Hypertension, Other Additional Past Medical Histor: PARKINSONS, DYSPHAGIA, Past Surgical History: Cholecystectomy Additional Past Surgical Histo: UNKNOWN SURGICAL HX Alcohol Use: None Drug Use: None General Adult EDM: Chief Complaint: ALTERED MENTAL STATUS HPI: HPI: Patient is a 74 year old male who presents via EMS for evaluation of acute confusion and episode where he passed out. Patient is currently a resident at the [facility]. He is also a hospice patient. Patient was eating lunch when he passed out. He states he feels somewhat better now but feels very weak. He states that earlier today he was very sweaty. Patient denies any chest pain. I asked the patient is he would like us to work him up even though he is in hospice. Patient had sweats and was dizzy just before arrival as well. Review of Systems: Review of Systems: Constitutional: Denies fever or chills Eyes: Denies change in visual acuity HENT: Denies nasal congestion or sore throat Respiratory: Denies cough has shortness of breath Cardiovascular: Denies chest pain has edema GI: Denies abdominal pain, has nausea no vomiting, no bloody stools or diarrhea : Denies dysuria Musculoskeletal: Denies back pain or joint pain Integument: Denies rash Neurologic: Denies headache, focal weakness or sensory changes Endocrine: Denies polyuria or polydipsia Lymphatic: Denies swollen glands Psychiatric: Denies depression or anxiety Heart Score: HEART Score for Chest Pain: HEART Score for Chest Pain Response (Comments) Value History Moderately Suspicious 1 ECG Nonspecific Repolarizatio 1 Age > 65 2 Risk Factors >3 Risk Factors or Hx CAD 2 Troponin < Normal Limit 0 Total 6 Risk Factors: Risk Factors: DM, Current or recent (<one month) smoker, HTN, HLP, family history of CAD, obesity. Risk Scores: Score 0 - 3: 2.5% MACE over next 6 weeks - Discharge Home Score 4 - 6: 20.3% MACE over next 6 weeks - Admit for Clinical Observation Score 7 - 10: 72.7% MACE over next 6 weeks - Early Invasive Strategies Current Medications: Current Meds: Current Medications Medications (Trade) Dose Ordered Sig/Karen Start Time Stop Time Status Last Admin Dose Admin Sodium Chloride 500 ml @ 500 mls/hr Q1H 08/31/19 13:15 Allergies: Allergies: Allergies Coded Allergies Type Severity Reaction Last Updated Verified No Known Drug Allergies 07/13/14 No Physical Exam: PE: Constitutional: Well developed, well nourished, moderate distress. [] HENT: Normocephalic, atraumatic, bilateral external ears normal, oropharynx moist, no oral exudates, nose normal. [] Eyes: PERRL, EOMI, conjunctiva normal, no discharge. [] Neck: Normal range of motion, no tenderness, supple, no stridor. [] Cardiovascular: Irregular irregular heartbeat varies from 30s to over 100, there is a murmur [] Lungs & Thorax: Bilateral breath sounds clear to auscultation [] Abdomen: Bowel sounds normal, soft, no tenderness. [] Skin: Warm, pale, no erythema, no rash. [] Back: No tenderness. [] Extremities: No tenderness, no cyanosis, some edema. [] Neurologic: Alert and oriented, normal motor function, normal sensory function, no focal deficits noted. [] Psychologic: flat Affect, judgement normal, mood normal. [] Current Patient Data: Labs: Laboratory Tests Test 08/31/19 13:19 White Blood Count 8.8 x10^3/uL Red Blood Count 4.29 x10^6/uL Hemoglobin 11.1 g/dL Hematocrit 35.1 % Mean Corpuscular Volume 82 fL Mean Corpuscular Hemoglobin 26 pg Mean Corpuscular Hemoglobin Concent 32 g/dL Red Cell Distribution Width 17.9 % Platelet Count 199 x10^3/uL Neutrophils (%) (Auto) 70 % Lymphocytes (%) (Auto) 20 % Monocytes (%) (Auto) 9 % Eosinophils (%) (Auto) 2 % Basophils (%) (Auto) 0 % Neutrophils # (Auto) 6.1 x10^3uL Lymphocytes # (Auto) 1.7 x10^3/uL Monocytes # (Auto) 0.8 x10^3/uL Eosinophils # (Auto) 0.1 x10^3/uL Basophils # (Auto) 0.0 x10^3/uL Sodium Level 142 mmol/L Potassium Level 3.9 mmol/L Chloride Level 105 mmol/L Carbon Dioxide Level 30 mmol/L Anion Gap 7 Blood Urea Nitrogen 24 mg/dL Creatinine 1.3 mg/dL Estimated GFR (Cockcroft-Gault) 54.1 Glucose Level 83 mg/dL Calcium Level 9.0 mg/dL Troponin I Quantitative < 0.017 ng/mL Current Medications Medications (Trade) Dose Ordered Sig/Karen Route PRN Reason Start Time Stop Time Status Last Admin Dose Admin Sodium Chloride 500 ml @ 500 mls/hr Q1H IV 08/31/19 13:15 08/31/19 13:23 DC 08/31/19 13:23 EKG: EKG: A. fib slow rate 48, no P waves present, irregular irregular rhythm, nonspecific ST segment changes but did have inverted T wave in lead III, not STEMI, read at 1314 [] Radiology/Procedures: Radiology/Procedures: [address] [address] IMAGING REPORT Signed PATIENT: JUAN MARTINEZ ACCOUNT: [id number] : 1945 LOCATION: ER AGE: 74 SEX: M EXAM STATUS: REG ER ORD. PHYSICIAN: KODI GUILLAUME DO REASON: syncope, on eliquis PROCEDURE: CT HEAD WO CONTRAST CT HEAD WO CONTRAST Date: 08/31/2019 1:03 PM Clinical Indication: Reason: syncope, on eliquis / Spl. Instructions: / History: Comparison: 12/30/2018. Technique: 5 mm axial tomographic images were obtained of the head without contrast. These were viewed on brain and bone windows. One or more of the following dose reduction techniques were utilized: Automated exposure control (AEC), Adjustment of mA and/or kV according to patient size, Use of iterative reconstruction technique such as ASiR, CT scan done according to ALARA and image gently/image wisely Findings: Mild generalized cerebral and cerebellar volume loss. Moderate nonspecific periventricular hypoattenuation, most commonly seen with chronic small vessel ischemic disease. Calcified atherosclerosis of the bilateral cavernous and paraclinoid internal carotid arteries and intracranial vertebral arteries. No intra- or extra-axial mass or fluid collection. No acute hemorrhage. The ventricles are normal in size, shape, and morphology. The king-white matter junction is normal. The subarachnoid cisterns are patent. The visualized paranasal sinuses are normal. The visualized portions of the orbits and globes are normal. The mastoid air cells are clear. The repairer evaporator topogram shows no lytic lesion or fracture. Impression: No acute intracranial process. Mild cerebral volume loss. Moderate chronic small vessel ischemic disease. Electronically signed by: Kari Abrams MD (08/31/2019 2:02 PM) [id number] DICTATED AND SIGNED BY: KARI ABRAMS MD DATE: 08/31/19 1402 CC: LOUISA URIAS; KODI GUILLAUME DO ~ [] Impressions: [place] [address] IMAGING REPORT Signed PATIENT: JUAN MARTINEZ ACCOUNT: [id number] : 1945 LOCATION: ER AGE: 74 SEX: M EXAM STATUS: REG ER ORD. PHYSICIAN: KODI GUILLAUME DO REASON: short of air PROCEDURE: PORTABLE CHEST 1V PORTABLE CHEST 1V History: Reason: short of air / Spl. Instructions: / History: Comparison: February 16, 2019 Findings: Patchy left basilar opacity. No pleural effusion. No pneumothorax. Unchanged enlarged cardiac size although portable technique accentuates cardiac size. Impression: 1. Patchy left basilar opacity, likely atelectasis. Electronically signed by: Rodrigo Murrieta DO (08/31/2019 2:15 PM) [id number] DICTATED AND SIGNED BY: RODRIGO MURRIETA DO DATE: 08/31/19 1415 CC: LOUISA URIAS; KODI GUILLAUME DO ~ Course & Med Decision Making: Course & Med Decision Making Pertinent Labs and Imaging studies reviewed. (See chart for details) [] Dragon Disclaimer: Dragjuliane Disclaimer: This electronic medical record was generated, in whole or in part, using a voice recognition dictation system. 1420 stable, patient has an alternating bradycardia from the 30s up to 100. When stimulated such as an IV start his heart rate is higher. Because patient has a persistent bradycardia and irregular slow heartbeat will need to admit for stabilization possible medication adjustment. Patient is in hospice and we contacted his service. They state that if he is admitted to the hospital they will sign off but when transferred back to the nursing facility they will sign back on. Patient is DNR. Patient given option for treatment and he states he would like to be admitted to the hospital to get stabilized. Dr. Villar will admit the patient and requested ICU bed. Departure Departure: Impression: Primary Impression: Bradycardia Additional Impressions: Atrial fibrillation Qualified Codes: I48.11 - Longstanding persistent atrial fibrillation Hypotension Qualified Codes: I95.1 - Orthostatic hypotension Syncope Qualified Codes: R55 - Syncope and collapse Disposition: ADMITTED INPATIENT Admitting Physician: Jason Villar Condition: STABLE Referrals: JOJO GUNTER (PCP) Justification of Admission: Justification of Admission: Justification of Admission Dx: Yes CHF: Hemodynamic Instability KODI GUILLAUME DO Aug 31, 2019 13:15
--- NOTE | 2019-08-31 13:24 | EKG ---
[address] [address] Test Date: 2019-08-31 Test Time: 13:10:41 Pat Name: JUAN MARTINEZ Department: Room: Gender: M Access Specialist: : 1945 Requested By: KODI GUILLAUME Order Number: [id number] Reading MD: Measurements Intervals [place] Rate: 48 P: OK: QRS: -20 QRSD: 106 T: 3 QT: 428 QTc: 382 Interpretive Statements IRREGULAR RHYTHM, NO P-WAVE FOUND LEFTWARD AXIS QRS(T) CONTOUR ABNORMALITY CONSISTENT WITH INFERIOR INFARCT PROBABLY OLD ABNORMAL ECG RI6.02 No previous ECG available for comparison
[2019-08-31 13:56] LABS: BASO % 0 % (0-3); CREATININE 1.3 mg/dL (0.7-1.3); EOS # 0.1 x10^3/uL (0.0-0.7); EOS % 2 % (0-3); GFR 54.1; HEMATOCRIT 35.1 % (39.0-53.0); HEMOGLOBIN 11.1 g/dL (13.0-17.5); LYMPH # 1.7 x10^3/uL (1.0-4.8); LYMPH % 20 % (24-48); MEAN CORPUSCULAR HEMOGLOBIN 26 pg (25-35); MEAN CORPUSCULAR HGB CONC 32 g/dL (31-37); MEAN CORPUSCULAR VOLUME 82 fL (79-100); MONO # 0.8 x10^3/uL (0.0-1.1); MONO % 9 % (0-9); NEUT # 6.1 x10^3uL (1.8-7.7); NEUT % 70 % (31-73); PLATELET COUNT 199 x10^3/uL (140-400); POTASSIUM 3.9 mmol/L (3.5-5.1); RED BLOOD COUNT 4.29 x10^6/uL (4.30-5.70); RED CELL DISTRIBUTION WIDTH 17.9 % (11.5-14.5); WHITE BLOOD COUNT 8.8 x10^3/uL (4.0-11.0)
--- NOTE | 2019-08-31 14:05 | RAD ---
CT HEAD WO CONTRAST Date: 08/31/2019 1:03 PM Clinical Indication: Reason: syncope, on eliquis / Spl. Instructions: / History: Comparison: 12/30/2018. Technique: 5 mm axial tomographic images were obtained of the head without contrast. These were viewed on brain and bone windows. One or more of the following dose reduction techniques were utilized: Automated exposure control (AEC), Adjustment of mA and/or kV according to patient size, Use of iterative reconstruction technique such as ASiR, CT scan done according to ALARA and image gently/image wisely Findings: Mild generalized cerebral and cerebellar volume loss. Moderate nonspecific periventricular hypoattenuation, most commonly seen with chronic small vessel ischemic disease. Calcified atherosclerosis of the bilateral cavernous and paraclinoid internal carotid arteries and intracranial vertebral arteries. No intra- or extra-axial mass or fluid collection. No acute hemorrhage. The ventricles are normal in size, shape, and morphology. The king-white matter junction is normal. The subarachnoid cisterns are patent. The visualized paranasal sinuses are normal. The visualized portions of the orbits and globes are normal. The mastoid air cells are clear. The wholesale buyer topogram shows no lytic lesion or fracture. Impression: No acute intracranial process. Mild cerebral volume loss. Moderate chronic small vessel ischemic disease. Electronically signed by: Robert Abrams MD (08/31/2019 2:02 PM) [id number]
--- NOTE | 2019-08-31 14:18 | RAD ---
PORTABLE CHEST 1V History: Reason: short of air / Spl. Instructions: / History: Comparison: February 16, 2019 Findings: Patchy left basilar opacity. No pleural effusion. No pneumothorax. Unchanged enlarged cardiac size although portable technique accentuates cardiac size. Impression: 1. Patchy left basilar opacity, likely atelectasis. Electronically signed by: Rodrigo Byrnes DO (08/31/2019 2:15 PM) [id number]
[2019-08-31 14:37] LABS: DIG 1.6 ng/dL (0.9-2.0)
[2019-08-31] MEDS ORDERED: ONDANSETRON PF 4 MG/2 ML VIAL. IVP PRN (14:45)
[2019-08-31] MEDS: INSULIN LISPRO 300 UNITS/3 ML VIAL. SQ SCH (17:00)
--- NOTE | 2019-08-31 17:16 | HP ---
ADMIT DATE: 08/31/2019 ATTENDING PHYSICIAN: Dr. Ascencio. CHIEF COMPLAINT: He fainted. HISTORY OF PRESENT ILLNESS: The patient is a pleasant 74-year-old gentleman well known to us from multiple previous admissions. He has been at [facility]. He was having lunch when he passed out. He felt somewhat better now. He was dizzy and weak. He was quite sweaty. His rhythm showed a bradycardic rhythm with alternating atrial fibrillation with rapid ventricular rate. His blood pressure was marginal. He has recently been sent to hospice. He has multiple medical issues including diabetes, hypertensive heart disease, paroxysmal atrial fibrillation, congestive heart failure systolic, Parkinson disease and dysphagia. He is a DNR per advanced directives. CURRENT MEDICATIONS: Reviewed. They include the following: He is on 3 different medicines that were ____ with AV node including digoxin, diltiazem, and metoprolol. He also takes Sinemet q.i.d., Requip, loperamide, milk of magnesia, MiraLax, insulin Lantus and Regular, antifungals, lanolin, cholecalciferol and various p.r.n. meds. He is also on Eliquis and Lipitor. SOCIAL HISTORY: He is a nonsmoker, nondrinker. ALLERGIES: He has no recorded drug allergies. FAMILY HISTORY: Unobtainable. REVIEW OF SYSTEMS: Significant for the syncopal episode. No fevers, chills, COVID exposure, cough, congestion, dyspnea. All other systems reviewed and turned to be negative. PHYSICAL EXAMINATION: GENERAL: When I saw him, this is a pleasant elderly gentleman. He was fairly alert and perfusing when I saw him. VITAL SIGNS: Initial blood pressure has been 96/48, repeat was up to 118/58, pulse ranged between 43 and 62 per minute, irregularly irregular, temperature 97.6 degrees Fahrenheit, oxygen saturation 97% on room air. HEENT: Head is without trauma. Pupils are reactive. Sclerae nonicteric. The oropharynx is clear. NECK: Supple, no bruits identified. LUNGS: Minimal crackles at bases. CARDIOVASCULAR: Showed distant heart tones. No gallops. Peripheral pulses are palpable, but weak. ABDOMEN: Obese, protuberant. No organomegaly. Bowel sounds are hypoactive. EXTREMITIES: Show trace edema. NEUROLOGIC: Focally intact. No deficits. SKIN: Warm and dry. PERTINENT LABORATORY AND X-RAY STUDIES: The obligatory CT of the head showed generalized cerebral and cerebellar volume loss, moderate nonspecific periventricular hypoattenuation due to ischemia. There is no acute stroke or bleeds identified. Chest x-ray showed patchy left basilar opacity consistent with atelectasis, no decompensation identified. Hemoglobin is 11.1 g/dL with white count of 6800. Chemistry showed creatinine 1.3 mg/dL. Electrolytes within normal range. ASSESSMENT: 1. A 74-year-old gentleman with symptomatic atrial fibrillation with bradycardic ventricular rate. 2. Overmedication with a combination of Digitalis, calcium channel andreina and beta blockers. 3. Acute on chronic systolic congestive heart failure. 4. Parkinson's disease with debilitation. 5. Essential hypertension. 6. Generalized debilitation. 7. Hyperlipidemia. 8. Major depression. 9. Paroxysmal atrial fibrillation. PLAN: 1. Admit to the inpatient unit. 2. I have held his 3 medicines which were ____ AV node. 3. Diet as tolerated. 4. Continue diabetic regimen. 5. We will restart his home meds judiciously. 6. He remains a DNR per advanced directive comfort measures for now. We will respect his advanced directive wishes. FADIA ASCENCIO MD DR: MARA/re JOB#: [id number] / [id number] CHANG Richardson MD
[2019-08-31 19:00] VITALS: BP 130/54
--- NOTE | 2019-08-31 19:35 | NUR ---
Pt admitted from ER to ICU bed 5 via [facility], accompanied by EMS and nursing staff. Pt transferred from [place] to bed x3 assist. Admission assessment completed. Pt here for c/o syncope at SC and bradycardia. Pt feels "much better now." VSS. Pt placed on Telemetry, Afib noted on monitor. [place] history and home medications reviewed with pt and longterm records. Eliquis for VTE, but currently on hold. Pt lives at [facility]. POC reviewed with pt, understanding verbalized. Pt given HS snack. Call light within reach.
[2019-08-31] MEDS ORDERED: INSULIN GLARGINE SYRINGE. SQ SCH (21:00)
[2019-08-31 23:35] VITALS: BP 137/57
[2019-09-01 08:00] VITALS: BP 116/57
[2019-09-01] MEDS ORDERED: INSULIN GLARGINE SYRINGE. SQ SCH (08:00)
[2019-09-01] MEDS ORDERED: PANTOPRAZOLE 40 MG TABLET. PO SCH (09:00)
[2019-09-01] MEDS: INSULIN LISPRO 300 UNITS/3 ML VIAL. SQ SCH ×2 (09:25→12:01)
[2019-09-01 12:00] VITALS: BP 121/60
--- NOTE | 2019-09-01 15:15 | NUR ---
Pt. left with [facility] transport via wheelchair with all belongings and patient d/c summary/ packet. Patient happy to go home!
--- NOTE | 2019-09-01 17:52 | DS ---
DATE OF DISCHARGE: 09/01/2019 ATTENDING PHYSICIAN: Dr. Ascencio FINAL DISCHARGE DIAGNOSES: 1. Syncopal episode, related to cardiac arrhythmia. 2. Symptomatic bradycardia, related to medications. 3. Paroxysmal atrial fibrillation. 4. Acute on chronic systolic congestive heart failure, compensated. 5. Parkinson disease with debilitation. 6. Essential hypertension. 7. Generalized debilitation. 8. Hyperlipidemia. 9. Major depression with anxiety. HISTORY AND PHYSICAL: The patient is a 74-year-old gentleman who had been at [facility] with hospice care. He presented to the ED with a syncopal episode after lunch. He was found to be hypotensive and bradycardic. He was on 3 different medicines which blocked impulse through the AV node including beta blockers, diltiazem and Digitalis, these meds were held. PHYSICAL EXAMINATION: Please see the dictated note. PERTINENT LABORATORY AND X-RAY STUDIES: The obligatory CT of the head showed no evidence of acute stroke or bleed. There is significant volume loss. Chest x-ray showed patchy left basilar opacity due to atelectasis. LABORATORY STUDIES: At admission, hemoglobin was 11.1 g/dL with white count of 8800. Chemistry panel shows sodium 142 mEq, potassium 3.9, creatinine is 1.3 mg/dL, nonfasting blood sugar 181 mg/dL. Troponin level was nonischemic. Rhythm strip shows bradycardia on admission. COURSE IN THE HOSPITAL: The patient was admitted to the ICU. We held his Digitalis, diltiazem and his beta blockers. His heart rate improved by the next day, it was in the 60s and 70s. There is a sinus rhythm. There is an occasional paroxysm of atrial fibrillation, but this is not sustained. He was alert. He still has the tremors and the pill rolling related to Parkinson disease, but he had adequate blood pressure and was perfusing well. His lungs were clear. By the next day, his heart rate was up. Blood pressure was improved to 130/54, pulse is 66 and regular. He was afebrile. His room air saturation 95%. He was ready for discharge. Therefore, on the next hospital day, we send him back to [facility]. There has been some simplification of his medications. For now, we have held his beta blockers, digoxin and his diltiazem. In the meantime, he should continue his Eliquis 5 mg b.i.d., aspirin daily, Lipitor 20 mg daily, Sinemet 20/100 one q.i.d., vitamin D3, Lexapro 10 mg daily, insulin regimen Lantus and Regular, loperamide p.r.n., omeprazole 40 mg daily, MiraLax 17 g daily, Mysoline 50 mg daily, Requip 1 mg daily, Aldactone 50 mg daily and Ultram p.r.n. pain. As I discussed, we have held his digoxin, diltiazem and his metoprolol. He is a DNR per advance directive. Hopefully, we can get him back on with hospice care. The patient was then discharged from our hospital in stable condition with explicit instructions and followup care. FADIA ASCENCIO MD DR: MARA/re JOB#: [id number] / [id number] jason Rowell Dr.
== END 2019-09-01 15:15 | disposition home or self-care (01) ==
LOC: ER 12:56 → INTOOBSV 14:28 → ICU 14:28
PROVIDERS: ADMIT Hospitalist; ATTEND Hospitalist
DX: I50.9 Heart failure, unspecified (principal); I48.0 Paroxysmal atrial fibrillation; I11.0 Hypertensive heart disease with heart failure; G20 Parkinson's disease; I95.1 Orthostatic hypotension; E11.9 Type 2 diabetes mellitus without complications; R00.1 Bradycardia, unspecified; E78.5 Hyperlipidemia, unspecified; Z79.899 Other long term (current) drug therapy; Z79.4 Long term (current) use of insulin
CPT/HCPCS: 36415; 70450; 71045; 80048; 80162; 82947; 84484; 85025; 93005; 96360; 96372; 99291; G0378; G0379; J1815; J7040